=== PATIENT | female | born 2000 | race African-American/Black ===

== ENCOUNTER 2020-02-22 04:28 | Emergency (ER) | payer SELFPAY ==
--- NOTE | 2020-02-22 04:50 | ED.ABDPAIN ---
HPI - Abdominal Pain General Chief Complaint: Abdominal Pain Stated Complaint: abd pain, diarrhea Time Seen by Provider: 02/22/20 04:35 History of Present Illness HPI narrative: previously healthy 20 yo female presents c/o abdominal pain. She reports that she has had watery diarrhea for the past 3 days. Yesterday she began having upper abdominal pain. the pain is moderate in intensity. No radiation. No vomiting, fever, cough, congestion, Related Data Allergies Allergy/AdvReac Type Severity Reaction Status Date / Time No Known Allergies Allergy Verified 02/22/20 04:56 Review of Systems Review of Systems: All systems reviewed & are unremarkable except as noted in HPI and below Constitutional: Constitutional: Denies fever(s) ENT: Denies sore throat Cardiovascular: Cardiovascular: Denies chest pain Respiratory: Respiratory: Denies cough and Denies dyspnea Gastrointestinal: Gastrointestinal: Denies abdominal pain and Reports diarrhea Genitourinary: Genitourinary: Denies dysuria Course Vital Signs Vital signs: Vital Signs Temperature 37.4 C 02/22/20 04:54 Pulse Rate 127 H 02/22/20 04:54 Respiratory Rate 12 02/22/20 04:54 Blood Pressure 154/91 H 02/22/20 04:54 Pulse Oximetry 98 02/22/20 04:54 Temperature 37.4 C 02/22/20 04:54 Pulse Rate 78 02/22/20 06:14 Respiratory Rate 19 02/22/20 06:14 Blood Pressure 117/71 02/22/20 06:14 Pulse Oximetry 97 02/22/20 06:14 MDM - Abdominal Pain MDM Narrative Medical decision making narrative: Feeling better after treatment. Vitals improved. UA consistent with infection. Medical Records Attestation: I reviewed the patient's medical records. Lab Data Attestation: I reviewed the patient's lab results. Result diagrams: 02/22/20 04:44 02/22/20 04:44 Labs: Lab Results 02/22/20 02/22/20 02/22/20 Range/Units 04:44 04:44 05:16 WBC 12.6 H (4.5-10.0) K/mm3 RBC 4.61 (4.2-5.4) M/mm3 Hgb 14.2 (12.0-15.0) g/dL Hct 40.5 (37.0-47.0) % MCV 87.9 (80-100) fl MCH 30.8 (26-34) pg MCHC 35.1 (32-36) g/dl RDW 11.3 L (11.5-14.5) % Plt Count 190 (150-375) k/mm3 MPV 10.2 (7.4-10.4) fl Immature Gran % (Auto) 0.6 H (0-0.5) % Neut % (Auto) 84.0 H (45.5-73.1) % Lymph % (Auto) 6.1 L (18.3-44.2) % [place] % (Auto) 8.5 (2.6-8.5) % Eos % (Auto) 0.6 (0-4.4) % Baso % (Auto) 0.2 (0.2-1.2) % Lymph # (Auto) 0.77 L (0.9-3.2) K/mm3 [place] # (Auto) 1.1 H (0.1-0.6) K/mm3 Eos # (Auto) 0.1 (0-0.3) K/mm3 Baso # (Auto) 0.0 (0.0-0.1) K/mm3 Abs Immat Gran (auto) 0.07 H (0.00-0.031) K/mm3 Absolute Neuts (auto) 10.6 H (1.3-6.7) K/mm3 Absolute Nucleated RBC 0.0 (0.0-0.012) K/mm3 Nucleated RBC % 0.0 (0.0-0.2) % Sodium 138 (137-145) mmol/L Potassium 3.5 (3.4-5.0) mmol/L Chloride 109 H (98-107) mmol/L Carbon Dioxide 19 L (22-30) mmol/L BUN 8 (7-17) mg/dL Creatinine 0.60 L (0.7-1.0) mg/dL Estim Creat Clear Calc Not Reportable Estimated GFR > 60 (59 - ) Glucose 102 (65-105) mg/dL Calcium 9.0 (8.4-10.2) mg/dL Total Bilirubin 0.7 (0.2-1.3) mg/dL AST 25 (14-36) U/L ALT 15 (4-35) U/L Alkaline Phosphatase 76 (38-126) U/L Total Protein 7.0 (6.3-8.2) g/dL Albumin 4.2 (3.5-5.1) g/dL Lipase 68 (23-300) U/L Urine Color Yellow (Yellow) Urine Appearance Turbid H (Clear) Urine pH 5.0 (5.0-9.0) Ur Specific [place] 1.023 (1.001-1.035) Urine Protein 2+ H (Negative) mg/dL Urine Glucose (UA) Negative (Negative) mg/dL Urine Ketones Trace (Negative) mg/dL Ur Blood (Man) 1+ H (Negative) Urine Nitrate Negative (Negative) Urine Bilirubin Negative (Negative) Urine Urobilinogen Negative (<2.0) mg/dL Leukocyte Esterase Rfl 2+ H (Negative) ALEX/UL Urine RBC 21-50 H (0-2) /hpf Urine WBC >75 H /hpf Ur Squamous Ep
[2020-02-22 04:54] VITALS: BP 154/91; PULSE 127; RESP 12; TEMP 37.4; O2SAT 98
[2020-02-22 05:01] LABS: Basophils Percent Auto 0.2 % (0.2-1.2); Eosinophils Absolute Auto 0.1 K/mm3 (0-0.3); Eosinophils Percent Auto 0.6 % (0-4.4); Hematocrit 40.5 % (37.0-47.0); Hemoglobin 14.2 g/dL (12.0-15.0); Immature Granulocyte Absolute 0.07 K/mm3 (0.00-0.031); Immature Granulocyte Percent A 0.6 % (0-0.5); Lymphocytes Absolute Auto 0.77 K/mm3 (0.9-3.2); Lymphocytes Percent Auto 6.1 % (18.3-44.2); Mean Corpuscular HGB Conc 35.1 g/dl (32-36); Mean Corpuscular Hemoglobin 30.8 pg (26-34); Mean Corpuscular Volume 87.9 fl (80-100); Mean Platelet Volume 10.2 fl (7.4-10.4); Monocytes Absolute Auto 1.1 K/mm3 (0.1-0.6); Monocytes Percent Auto 8.5 % (2.6-8.5); Neutrophils Absolute Auto 10.6 K/mm3 (1.3-6.7); Platelet Count Result 190 k/mm3 (150-375); Red Blood Count 4.61 M/mm3 (4.2-5.4); Red Cell Distribution Width 11.3 % (11.5-14.5); White Blood Count 12.6 K/mm3 (4.5-10.0)
[2020-02-22 05:11] LABS: Potassium 3.5 mmol/L (3.4-5.0)
[2020-02-22 05:16] LABS: Alanine Aminotransferase 15 U/L (4-35); Albumin Level 4.2 g/dL (3.5-5.1); Alkaline Phosphatase 76 U/L (38-126); Aspartate Amino Transferase 25 U/L (14-36); Bilirubin,Total 0.7 mg/dL (0.2-1.3); Blood Urea Nitrogen 8 mg/dL (7-17); Carbon Dioxide 19 mmol/L (22-30); Chloride 109 mmol/L (98-107); Estimated Glomerular Filt Rate > 60; Glucose 102 mg/dL (65-105); Lipase 68 U/L (23-300); Sodium 138 mmol/L (137-145)
[2020-02-22] MEDS: DICYCLOMINE HCL INJ 20 MG/2 ML VIAL IM (05:17)
[2020-02-22] MEDS: SODIUM CHLORIDE 0.9% IV 1,000 ML 999 ML IV CONT (05:17)
[2020-02-22] MEDS: LOPERAMIDE HCL 2 MG CAPSULE 4 MG PO (05:17)
[2020-02-22 05:51] LABS: Add Urine Microscopic? YES; Appearance Urine Turbid (Clear); Bilirubin Urine Negative (Negative); Blood Urine 1+ (Negative); Calcium Oxalate Crystals Urine Many /hpf; Color Urine Yellow (Yellow); Glucose Urine UA Negative (Negative); Ketones Urine Trace mg/dL (Negative); Leukocyte Esterase Ur 2+ LEU/UL (Negative); Mucus Urine Moderate /lpf; Nitrate Urine Negative (Negative); Protein Urine 2+ mg/dL (Negative); RBC Urine 21-50 /hpf (0-2); Specific Grav Ur 1.023 (1.001-1.035); Squamous Epithelial Cell Urine Many /hpf (Few); Urobilinogen Urine Negative mg/dL (<2.0); WBC Urine >75 /hpf
[2020-02-22 05:56] VITALS: BP 130/81; PULSE 88; RESP 12; O2SAT 97
[2020-02-22] MEDS: CEFDINIR 300 MG CAPSULE PO (06:10)
[2020-02-22 06:14] VITALS: BP 117/71; PULSE 78; RESP 19; O2SAT 97
== END 2020-02-22 06:14 | disposition home or self-care (01) ==
PROVIDERS: Emergency Provider Emergency Medicine
DX: R10.13 Epigastric pain (principal); R19.7 Diarrhea, unspecified
CPT/HCPCS: 36415; 80053; 81001; 81025; 83690; 85025; 87086; 87088; 96360; 96372; 99283; A9270; J0500; J7030

== ENCOUNTER 2021-02-05 09:02 | Emergency (ER) | payer OTHER, SELFPAY ==
--- NOTE | ~2021-02-05 | US_ITS ---
EXAMINATION: US OB <=14 wk fetus w TV DATE: 02/05/2021 10:15 INDICATION: Vaginal bleeding. TECHNIQUE: Real-time transabdominal and transvaginal pelvic ultrasound was performed. COMPARISON: None. FINDINGS: TRANSABDOMINAL ULTRASOUND: The uterus measures 9.7 x 4.0 x 5.9 cm. TRANSVAGINAL ULTRASOUND: There is an intrauterine gestational sac. A yolk sac is identified. The fet al crown rump length measures 5 mm, which correlates with an estimated gestational age of 6 weeks and 1 day(s) (+/-) 4 day(s). heart motion is identified measuring 113 beats per minute (bpm) by M- mode Doppler. The right ovary measures 1.0 x 2.3 x 1.1 cm. The left ovary measures 1.7 x 3.2 x 2.3 cm . There is no free fluid in the pelvis. IMPRESSION: 1. Single living intrauterine gestation with estimated date of delivery of 09/30/2021. Reviewed, dictated and finalized at location [facility].
[2021-02-05 09:31] VITALS: BP 136/78; PULSE 94; RESP 18; TEMP 36.1; O2SAT 100
--- NOTE | 2021-02-05 09:32 | ED.GENADULT ---
HPI - General Adult General Chief complaint: Vaginal Bleeding <Ilir Ballard PA-C - Last Filed: 02/05/21 12:16> Stated complaint: Vaginal Bleeding <Ilir Ballard PA-C - Last Filed: 02/05/21 12:16> Time Seen by Provider: 02/05/21 09:05 <Ilir Ballard PA-C - Last Filed: 02/05/21 12:16> Source: patient <Ilir Ballard PA-C - Last Filed: 02/05/21 12:16> Mode of arrival: ambulatory <Ilir Ballard PA-C - Last Filed: 02/05/21 12:16> Limitations: no limitations <Ilir Ballard PA-C - Last Filed: 02/05/21 12:16> History of Present Illness HPI narrative: Patient is a 21-year-old female presenting with cramping and light spotting in patient is followed by Dr. Luevano. Patient had positive test on the first saw Dr. Luevano stay in the office several days later and now notes that she is having light spotting on wiping x2. Patient denies any recent illness injury or trauma. Patient notes some light cramping in the lower abdomen and lower back. Patient presents in no distress does not appear uncomfortable has not taken anything for her symptoms. Patient is an otherwise healthy young adult <Ilir Ballard PA-C - Last Filed: 02/05/21 12:16> Related Data Allergies/adverse reactions: Allergies Allergy/AdvReac Type Severity Reaction Status Date / Time No Known Allergies Allergy Verified 02/05/21 09:40 <Ilir Ballard PA-C - Last Filed: 02/05/21 12:16> Review of Systems Review of Systems: All systems reviewed & are unremarkable except as noted in HPI and below <Ilir Ballard PA-C - Last Filed: 02/05/21 12:16> PMFSH Social History Social History: Social History Gender identity (if verbalized by the patient): Female <Ilir Ballard PA-C - Last Filed: 02/05/21 12:16> Exam Narrative: Exam Narrative: GENERAL: Well-appearing, well-nourished, and in no acute distress. HEAD: Normocephalic, atraumatic. EYES: PERRLA and EOMI. ENT: Nares clear, no rhinorrhea or epistaxis. Mucous membranes moist. CHEST: Clear to auscultation. No respiratory distress. No wheezes rales or rhonchi HEART: Regular rate and rhythm. No murmur heard. Normal peripheral pulses. ABDOMEN: Soft, nontender, nondistended, EXTREMITIES: Normal range of motion. No edema. SKIN: Warm, dry, no rash. NEURO: No focal deficits. Alert and oriented x3. PSYCH: Normal mood and affect. <XAVI Watkins Last Filed: 02/05/21 12:16> Course Course Emergency Course: Patient with vaginal bleeding in will be discharged with outpatient follow-up aware of discussion with her acidizer agrees with this plan is afebrile nontoxic-appearing in no distress was given RhoGam prior to discharge will follow up March 03 as planned has been placed on pelvic rest educated on this and agrees with the plan and will return here if symptoms worsen and will otherwise follow with her acidizer <XAVI Watkins Last Filed: 02/05/21 12:16> Consultations Consultation #1: Spoke with the on-call acidizer Dr. Lopez who agrees with the plan and will follow the patient with plan follow-up to be placed on pelvic rest as well <XAVI Watkins Last Filed: 02/05/21 12:16> Date: 02/05/21 <XAVI Watkins Last Filed: 02/05/21 12:16> Time: 12:13 <XAVI Watkins Last Filed: 02/05/21 12:16> Vital Signs Vital signs: Vital Signs Temperature 36.1 C L 02/05/21 09:31 Pulse Rate 94 02/05/21 09:31 Respiratory Rate 18 02/05/21 09:31 Blood Pressure 136/78 02/05/21 09:31 Pulse Oximetry 100 02/05/21 09:31 Temperature 36.1 C L 02/05/21 09:31 Pulse Rate 70 02/05/21 12:29 Respiratory Rate 18 02/05/21 12:29 Blood Pressure 122/80 02/05/21 12:29 Pulse Oximetry 100 02/05/21 12:29 <Ilir Ballard PA-C - Last Filed: 02/05/21 12:16> Vital
[2021-02-05] MEDS: SODIUM CHLORIDE 0.9% IV 1,000 ML 999 ML IV CONT (09:48)
--- NOTE | 2021-02-05 09:56 | PC.NURSE ---
Pt taken to US via wheelchair at this time.
[2021-02-05 10:07] LABS: Add Urine Microscopic? YES; Appearance Urine Clear (Clear); Bacteria Urine Trace /hpf; Bilirubin Urine Negative (Negative); Blood Urine 2+ (Negative); Color Urine Yellow (Yellow); Glucose Urine UA Negative (Negative); Ketones Urine Negative (Negative); Leukocyte Esterase Ur Trace LEU/UL (Negative); Mucus Urine Rare /lpf; Nitrate Urine Negative (Negative); Protein Urine Negative (Negative); RBC Urine 0-2 /hpf (0-2); Specific Grav Ur 1.012 (1.001-1.035); Squamous Epithelial Cell Urine Few /hpf (Few); Urobilinogen Urine Negative mg/dL (<2.0)
[2021-02-05 10:08] LABS: Alanine Aminotransferase 14 U/L (4-35); Albumin Level 4.1 g/dL (3.5-5.1); Alkaline Phosphatase 62 U/L (38-126); Anion Gap 4 mmol/L (8-16); Aspartate Amino Transferase 19 U/L (14-36); Blood Urea Nitrogen 8 mg/dL (7-17); Carbon Dioxide 22 mmol/L (22-30); Chloride 109 mmol/L (98-107); Estimated CRCL calculation 122 ml/min; Estimated Glomerular Filt Rate > 60; Glucose 86 mg/dL (65-105); Potassium 3.9 mmol/L (3.4-5.0); Sodium 135 mmol/L (137-145)
[2021-02-05 11:00] LABS: Bilirubin,Total 1.2 mg/dL (0.2-1.3)
[2021-02-05 11:10] VITALS: BP 114/64; PULSE 69; RESP 16; O2SAT 100
[2021-02-05] MEDS: RHO(D) IMMUNE GLOBULIN 300 MCG/2 ML SYRINGE IM (11:49)
[2021-02-05 12:29] VITALS: BP 122/80; PULSE 70; RESP 18; O2SAT 100
== END 2021-02-05 12:31 | disposition home or self-care (01) ==
PROVIDERS: Emergency Medicine Emergency Medical Services; Emergency Provider Emergency Medicine; PCP Family Medicine
DX: O20.9 Hemorrhage in early pregnancy, unspecified (principal); Z3A.01 Less than 8 weeks gestation of pregnancy
CPT/HCPCS: 36415; 76801; 76817; 80053; 81001; 84702; 85461; 87077; 87086; 87088; 87186; 90384; 96360; 96372; 99284; J2790; J7030

== ENCOUNTER 2021-02-16 03:34 | Emergency (ER) | payer OTHER, SELFPAY ==
[2021-02-16 03:37] VITALS: BP 134/73; PULSE 73; RESP 18; TEMP 35.9; O2SAT 100
--- NOTE | 2021-02-16 03:44 | ED.FEMALEGU ---
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 She awoke from sleep with her underwear soaked in blood. The bleeding has significantly slowed at this point. She is rh negative. She was seen here for similar symptoms 11 days ago. She had an ultrasound showing a normal IUP. She was given rhogam. She is a patient of Dr. Luevano. Related Data Home Medications Medication Instructions Recorded Confirmed Macrobid 02/16/21 sertraline [Zoloft] mg 02/16/21 Allergies Allergy/AdvReac Type Severity Reaction Status Date / Time No Known Allergies Allergy Verified 02/16/21 03:39 Review of Systems Review of Systems: All systems reviewed & are unremarkable except as noted in HPI and below Constitutional: Constitutional: Reports no additional constitutional complaints ENT: Reports system reviewed and no additional complaints, except as documented Cardiovascular: Cardiovascular: Denies chest pain Respiratory: Respiratory: Denies no additional respiratory complaints Gastrointestinal: Gastrointestinal: Denies nausea and Denies vomiting Genitourinary: Genitourinary: Reports as per HPI Musculoskeletal: Musculoskeletal: Denies back pain Neurologic: Reports system reviewed and no additional complaints, except as documented [facility] Social History Social History Gender identity (if verbalized by the patient): Female Sexual Orientation (if Verbalized by the Patient): Straight or Heterosexual Exam Const: General: healthy appearing, no acute distress and alert Orientation/consciousness: patient oriented x3 HENMT: Head: normal to inspection Resp: Effort & Inspection: normal respiratory effort Auscultation: clear to auscultation bilaterally Cardio: Rate: regular rate Rhythm: regular rhythm GI: GI Palp: Yes Soft to palpation and No Tenderness to palpation present (GI) Skin: General skin exam: normal color Neuro: General: patient oriented x3, moves all extremities, no focal motor deficits and CN's II-XI intact bilaterally Speech: normal speech Extrem: General: normal to inspection and no edema Course Vital Signs Vital signs: Vital Signs Temperature 35.9 C L 02/16/21 03:37 Pulse Rate 73 02/16/21 03:37 Respiratory Rate 18 02/16/21 03:37 Blood Pressure 134/73 02/16/21 03:37 Pulse Oximetry 100 02/16/21 03:37 Temperature 35.9 C L 02/16/21 03:37 Pulse Rate 73 02/16/21 03:37 Respiratory Rate 18 02/16/21 03:37 Blood Pressure 134/73 02/16/21 03:37 Pulse Oximetry 100 02/16/21 03:37 Procedures Other Procedure Procedure 1: Other Procedure: Bedside US Early IUP FHR 146 MDM - Female Genitourinary MDM Narrative Medical decision making narrative: Patient discussed with Dr. Estrella. She can followup with them in clinic this week. No need to repeat rhogam. Differential Diagnosis Differential diagnosis: Likely other (subchoioinc hemorrhage, aborton, ) Medical Records Attestation: I reviewed the patient's medical records. Discharge Plan Discharge Clinical Impression: Vaginal bleeding affecting early Patient Disposition: Home, Self-Care Condition: Stable Instructions: Non-Threatening First Trimester Vaginal Bleed (ED) Prescriptions: No Action dicyclomine 20 mg tablet 20 mg PO TID PRN (Reason: AbdominalPain) Qty: 20 RF: 0 cefdinir 300 mg capsule 300 mg PO Q12H Qty: 14 RF: 0 sertraline [Zoloft] 25 mg Tablet RF: 0 Macrobid RF: 0 Follow-up/Referrals: Alison Luevano DO [Physician] - Ryan,Melodie Garcia MD [Primary Care Provider] -
[2021-02-16 05:05] VITALS: BP 105/61; PULSE 60; RESP 18; O2SAT 100
== END 2021-02-16 05:05 | disposition home or self-care (01) ==
PROVIDERS: Emergency Provider Emergency Medicine; PCP Family Medicine
DX: O20.9 Hemorrhage in early pregnancy, unspecified (principal); Z3A.01 Less than 8 weeks gestation of pregnancy
CPT/HCPCS: 99282

== ENCOUNTER 2021-02-16 13:39 | Emergency (ER) | payer OTHER, SELFPAY ==
--- NOTE | 2021-02-16 13:45 | PC.NURSE ---
pt states was contacted by operations examiner and states no ed visit needed. states has outpatient ultrasound scheduled. left before triaged.
== END 2021-02-16 13:45 | disposition left against medical advice (07) ==
PROVIDERS: PCP Family Medicine
DX: Z53.21 Procedure and treatment not carried out due to patient leaving prior to being seen by health care provider (principal)
CPT/HCPCS: 99199

== ENCOUNTER 2021-03-09 08:18 | Emergency (ER) | payer OTHER, SELFPAY ==
--- NOTE | 2021-03-09 08:29 | ED.URI ---
HPI - URI/Sore Throat General Chief Complaint: Upper Respiratory Infection Stated Complaint: sore throat Time Seen by Provider: 03/09/21 08:40 Source: patient and RN notes reviewed Mode of arrival: ambulatory Limitations: no limitations History of Present Illness HPI Narrative: 21-year-old female presents for sinus congestion and a sore throat since last night. Patient is approximately 10 weeks , OB in [place]. 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 States she always has nausea since she has been . Has not been vomiting. Is taking her vitamins daily. Denies any chest pain or abdominal pain. Denies fevers. MD elicited complaint: sore throat, rhinorrhea, nasal congestion and sinus pain Onset (ago): hour(s) (About 12) Consistency: constant Severity: mild Description of mucous: clear Treatments prior to arrival: none Related Data Home Medications Medication Instructions Recorded Confirmed sertraline 25 mg PO DAILY 03/09/21 03/09/21 Allergies Allergy/AdvReac Type Severity Reaction Status Date / Time No Known Allergies Allergy Verified 02/16/21 03:39 Review of Systems Review of Systems: All systems reviewed & are unremarkable except as noted in HPI and below Constitutional: Constitutional: Reports as per HPI, Denies chills, Denies fatigue, Denies fever(s) and Denies weakness Eyes: Eyes: Reports no additional eye complaints and Denies photophobia ENT: Reports as per HPI, Denies vertigo, Denies dizziness, Reports nasal congestion and Reports sore throat Cardiovascular: Cardiovascular: Reports no additional cardiovascular complaints and Denies chest pain Respiratory: Respiratory: Reports no additional respiratory complaints, Denies chest congestion, Denies cough, Denies dyspnea and Denies wheezing Gastrointestinal: Gastrointestinal: Reports as per HPI, Denies abdominal pain, Reports nausea ( related) and Denies vomiting Genitourinary: Genitourinary: Reports no additional female genitourinary complaints Musculoskeletal: Musculoskeletal: Reports no additional musculoskeletal complaints Integumentary/Breasts: Skin/Breast: Reports system reviewed and no additional complaints, except as docu Neurologic: Reports system reviewed and no additional complaints, except as documented, Denies dizziness, Denies headache(s) and Denies numbness Psychiatric: Psychiatric: Reports no additional psychiatric complaints PMFSH Social History Social History Gender identity (if verbalized by the patient): Female Comments At the time of my signature, I reviewed and agree with the nursing past medical, surgical, social, and family history. There is no relevant family history pertinent to the patient complaint. Exam Const: General: healthy appearing, no acute distress and alert Nutritional Appearance: well nourished Orientation/consciousness: patient oriented x3 HENMT: Head: normal to inspection Ears: external ears normal and TM's normal bilaterally General nose exam: Normal external nose present, Normal nares present and Nasal discharge present clear Face and sinus: sinuses nontender Mouth: Yes lip normal and Yes moist mucous membranes Throat: posterior oropharynx normal and uvula midline Eyes: Conjunctivae: conjunctivae normal Pupils: Equal, round and reactive pupils present Neck: Neck: normal visual inspection and no lymphadenopathy Chest: Chest palpation & inspection: normal inspection of the chest Resp: Effort & Inspection: normal respiratory effort and no use of accessory muscles Auscultation: clear to auscultation bilaterally, no crackles, no rales, no rhonchi and no wheezes Skin: General skin exam: normal color Neuro: General: patient oriented x3, moves all extremities, no meningeal signs and no focal motor deficits Speech: normal speech Gait exam (Neuro): Normal gait present Extrem: General: normal to inspection Psych: Appearance: grossly normal Men
[2021-03-09 08:38] VITALS: BP 127/71; PULSE 108; RESP 17; TEMP 36.4; O2SAT 98
[2021-03-09 08:40] VITALS: BP 127/71; PULSE 108; RESP 17; TEMP 36.4; O2SAT 98
[2021-03-10 18:55] LABS: SARS-CoV-2 RNA PCR Negative
== END 2021-03-09 09:20 | disposition home or self-care (01) ==
PROVIDERS: Emergency Provider Nurse Practitioner; PCP Family Medicine
DX: J01.40 Acute pansinusitis, unspecified (principal); Z20.822 Contact with and (suspected) exposure to COVID-19
CPT/HCPCS: 87081; 87880; 99213; C9803; G0463; U0003; U0005

== ENCOUNTER 2021-03-16 08:30 | Emergency (ER) | payer OTHER, SELFPAY ==
--- NOTE | ~2021-03-16 | US_ITS ---
US OB <=14 wk fetus w TV DATE: 03/16/2021 09:38 INDICATION: Vaginal bleeding, gravid patient TECHNIQUE: Real-time imaging and Doppler analysis COMPARISON: 02/05/2021 obstetrical ultrasound FINDINGS: The uterus measures 10.2 cm height, 6.4 cm AP dimension and contains a live ambrosio intra uterine gestation. Gestational sac is normally shaped. Yolk sac and pole are identified. Subjec tively normal amount of amniotic fluid. heart rate 155 bpm. [place]-rump length averages 5.62 cm, consistent with estimated gestational age of 12 weeks 2 days +/- 1 week 1 day with ALANA of 09/26/2021, compared to 09/30/2021 by 02/05/2021 obstetrical ultrasound examina tion. Right ovary measures 1.4 x 2.4 x 1.2 cm. Left ovary measures 3.2 x 3.1 x 1.0 cm. No pelvic mass or abnormal free pelvic fluid collection is evident. IMPRESSION: Normal appearing intrauterine gestation Reviewed, dictated and finalized at [facility]. Reviewed, dictated and finalized at location [facility].
[2021-03-16 08:38] VITALS: BP 130/76; PULSE 75; RESP 20; TEMP 36.9; O2SAT 97
[2021-03-16 08:52] LABS: Basophils Percent Auto 0.2 % (0.2-1.2); Eosinophils Absolute Auto 0.1 K/mm3 (0-0.3); Eosinophils Percent Auto 1.2 % (0-4.4); Hematocrit 36.7 % (37.0-47.0); Immature Granulocyte Absolute 0.07 K/mm3 (0.00-0.031); Immature Granulocyte Percent A 0.6 % (0-0.5); Lymphocytes Absolute Auto 2.74 K/mm3 (0.9-3.2); Mean Corpuscular HGB Conc 35.4 g/dl (32-36); Mean Corpuscular Volume 87.6 fl (80-100); Mean Platelet Volume 9.9 fl (7.4-10.4); Monocytes Absolute Auto 0.6 K/mm3 (0.1-0.6); Monocytes Percent Auto 5.4 % (2.6-8.5); Neutrophils Absolute Auto 8.3 K/mm3 (1.3-6.7); Neutrophils Percent Auto 69.6 % (45.5-73.1); Platelet Count Result 219 k/mm3 (150-375); Red Blood Count 4.19 M/mm3 (4.2-5.4); Red Cell Distribution Width 12.1 % (11.5-14.5); White Blood Count 11.9 K/mm3 (4.5-10.0)
[2021-03-16] MEDS: ACETAMINOPHEN 500 MG TABLET 1000 MG PO (09:43)
--- NOTE | 2021-03-16 10:56 | ED.GENADULT ---
HPI - General Adult General Chief complaint: Vaginal Bleeding Stated complaint: 11 weeks preg/bleeding Time Seen by Provider: 03/16/21 08:37 Source: RN notes reviewed History of Present Illness HPI narrative: Patient presents emergency department from home for vaginal bleeding. Patient states she is presently [address] khan. She states she has had some vaginal spotting this morning and came to the ER for further evaluation. She states she has mild lower abdominal cramping that is intermittent. She states she is taken nothing for the pain this morning states that she has had several episodes of vaginal bleeding with her has had worked up she denies any other symptoms at this time Related Data Home Medications Medication Instructions Recorded Confirmed [id number] 3-fat com #1 cap PO 03/16/21 [Pre-Viky Multivitamins/Minerals] cetirizine [Zyrtec] 10 mg PO DAILY 03/16/21 sertraline [Zoloft] 25 mg PO DAILY 03/16/21 Allergies Allergy/AdvReac Type Severity Reaction Status Date / Time No Known Allergies Allergy Verified 03/16/21 08:41 Review of Systems Review of Systems: Narrative: Gen.: Denies fevers or chills ENT: Denies congestion Respiratory: Denies shortness of breath or cough CV: Denies chest pain or palpitations GI: Reports intermittent lower abdominal cramping nausea, emesis or diarrhea see HPI Musculoskeletal: Denies back pain or muscle pain Neuro: Denies numbness, tingling, weakness or focal weakness Skin: Denies rash Except as documented, all other systems reviewed and negative [facility] Past Medical History Medical History (Updated 03/16/21 @ 10:58 by Vinnie Felipe DO) Patient denies significant medical history Social History Social History (Updated 03/16/21 @ 10:57 by Vinnie Felipe DO) Smoking status: Never smoker Exam Narrative: Exam Narrative: APPEARANCE: No acute distress, nontoxic, resting in bed EYES: EOMI HEENT: Normocephalic, atraumatic, OMM RESPIRATORY: No respiratory distress Clear to auscultation bilaterally with no rhonchi wheezing or rales. CARDIOVASCULAR: Regular rate and rhythm without murmurs rubs or gallops. ABDOMINAL: Soft, nontender, nondistended, no rebound or guarding MUSCULOSKELETAl: Moves all extremities. No clubbing, cyanosis or edema. NEURO: Awake and alert. Following commands, speech normal, no focal deficits SKIN:: Warm, dry. No rashes lesions or abrasions PSYCHIATRIC: Normal affect/mood, Course Course Emergency Course: Reviewed old records the patient is registered and other medical record number and has been seen here for vaginal bleeding in the past 2 months patient had RhoGam on 02/05/[address] Sierra presentation work-up agrees with plan for discharge to follow-up as an outpatient recommends no RhoGam at this time she has had previous RhoGam in January Discussed with patient results of workup and diagnosis. Discussed need for follow-up with primary care, proper use of medication, and reasons to return to the emergency department. Patient understands and agrees to current treatment plan Vital Signs Vital signs: Vital Signs Temperature 98.4 F 03/16/21 08:38 Pulse Rate 75 03/16/21 08:38 Respiratory Rate 20 03/16/21 08:38 Blood Pressure 130/76 03/16/21 08:38 Pulse Oximetry 97 03/16/21 08:38 Temperature 98.4 F 03/16/21 08:38 Pulse Rate 75 03/16/21 08:38 Respiratory Rate 20 03/16/21 08:38 Blood Pressure 130/76 03/16/21 08:38 Pulse Oximetry 97 03/16/21 08:38 Medical Decision Making Vital Signs Vital Signs: Vital Signs Temperature 98.4 F 03/16/21 08:38 Pulse Rate 75 03/16/21 08:38 Respiratory Rate 20 03/16/21 08:38 Blood Pressure 130/76 03/16/21 08:38 Pulse Oximetry 97 03/16/21 08:38 Temperature 98.4 F 03/16/21 08:38 Pulse Rate 75 03/16/21 08:38 Respiratory Rate 20 03/16/21 08:38 Blood Pressure 130/76 03/16/21 08:38 Pulse Oxi
[2021-03-16 11:13] VITALS: BP 153/80; PULSE 87; RESP 20; O2SAT 98
== END 2021-03-16 11:14 | disposition home or self-care (01) ==
PROVIDERS: Emergency Provider Emergency Medicine; PCP Family Medicine
DX: O20.0 Threatened abortion (principal)
CPT/HCPCS: 36415; 76801; 76817; 84702; 85025; 85461; 86880; 86902; 99284; A9270

== ENCOUNTER 2021-03-17 19:41 | Emergency (ER) | payer OTHER, SELFPAY ==
[2021-03-17 19:51] VITALS: BP 122/72; PULSE 86; RESP 18; TEMP 36.1; O2SAT 98
[2021-03-17 20:40] VITALS: BP 126/78; PULSE 68; RESP 16; TEMP 36.6; O2SAT 100
--- NOTE | 2021-03-17 20:58 | ED.FEMALEGU ---
HPI - Female Genitourinary General Chief complaint: Vaginal Bleeding Stated complaint: vaginal bleed 11 weeks preg. Time Seen by Provider: 03/17/21 20:34 Source: patient Mode of arrival: ambulatory Limitations: no limitations History of Present Illness HPI Narrative: Patient is a 21 year old female who presents with complaints of vaginal bleeding. Patient reports she is 11 weeks 6 days gestation. She reports being seem in ED yesterday for vaginal bleeding. She reports ultrasound completed and showed IUP. She reports being advised to stay on bedrest for the next few days. She reports she has been compliant. She reports up to restroom and while urinating had a large amount of bright red vaginal bleeding and cramping after urination. She denies all other complaints at this time. MD elicited complaint: vaginal bleeding Related Data Home Medications Medication Instructions Recorded Confirmed sertraline 25 mg PO DAILY 03/09/21 03/09/21 Allergies Allergy/AdvReac Type Severity Reaction Status Date / Time No Known Allergies Allergy Verified 03/17/21 20:44 Review of Systems Review of Systems: Narrative: CONSTITUTIONAL: Denies fever, chills, or sweats. EYES: Denies visual changes, redness, or discharge. ENT: Denies rhinorrhea, congestion, sore throat, or otalgia. CARDIOVASCULAR: Denies chest pain, palpitations, or edema. RESPIRATORY: Denies cough or dyspnea. GASTROINTESTINAL: Denies abdominal pain, nausea, vomiting, or diarrhea. GENITOURINARY: Reports vaginal bleeding and pelvic cramping SKIN: Denies rash or itching. MUSCULOSKELETAL: Denies back pain, joint pain, or myalgia. NEUROLOGIC: Denies headache, numbness, dizziness, or weakness. PSYCHIATRIC: Denies anxiety or depression. [facility] Past Medical History Medical History No pertinent past medical history Surgical History Surgical History No pertinent past surgical history Family History Family History Other No significant family history Social History Social History (Updated 03/17/21 @ 21:18 by ROBY Jones) Smoking status: Never smoker Alcohol intake: never Substance use: never Gender identity (if verbalized by the patient): Female Comments At the time of signature, I have reviewed and agree with nursing past medical, surgical, social, and family history unless otherwise noted. Please see nursing chart for further information. There is no relevant family history pertinent to the presenting complaint. Exam Narrative: Exam Narrative: GENERAL: Well-appearing, well-nourished, and in no acute distress. HEAD: Normocephalic, atraumatic. EYES: EOMI. No redness or drainage. Conjunctiva are normal. ENT: Mucous membranes pink and moist. Nares clear. No rhinorrhea. TMs normal bilaterally. Throat normal. Uvula midline. NECK: AROM. Supple. No lymphadenopathy. CHEST: No respiratory distress. Clear to auscultation. HEART: Regular rate and rhythm. No murmur appreciated. Normal peripheral pulses. GI: Soft, nontender without rebound, or guarding. No distention. Bowel sounds normal in all quadrants. MUSCULOSKELETAL: No bony tenderness. EXTREMITIES: Normal range of motion. No edema. SKIN: Warm, dry, no rash. NEURO: No focal deficits. Alert and oriented x3. Gait steady. PSYCH: Normal affect. No signs of depression or anxiety. Course Vital Signs Vital signs: Vital Signs Temperature 36.1 C L 03/17/21 19:51 Pulse Rate 86 03/17/21 19:51 Respiratory Rate 18 03/17/21 19:51 Blood Pressure 122/72 03/17/21 19:51 Pulse Oximetry 98 03/17/21 19:51 Temperature 36.6 C 03/17/21 20:40 Pulse Rate 68 03/17/21 20:40 Respiratory Rate 16 03/17/21 20:40 Blood Pressure 126/78 03/17/21 20:40 Pulse Oximetry 100 03/17/21 20:40 Reviewed MDM - Female Genitourinar
[2021-03-17 21:56] LABS: Basophils Percent Auto 0.1 % (0.2-1.2); Eosinophils Absolute Auto 0.2 K/mm3 (0-0.3); Hematocrit 36.8 % (37.0-47.0); Hemoglobin 12.9 g/dL (12.0-15.0); Immature Granulocyte Percent A 0.6 % (0-0.5); Lymphocytes Absolute Auto 3.52 K/mm3 (0.9-3.2); Lymphocytes Percent Auto 22.8 % (18.3-44.2); Mean Corpuscular HGB Conc 35.1 g/dl (32-36); Mean Corpuscular Hemoglobin 31.5 pg (26-34); Mean Corpuscular Volume 89.8 fl (80-100); Mean Platelet Volume 10.3 fl (7.4-10.4); Monocytes Absolute Auto 1.1 K/mm3 (0.1-0.6); Monocytes Percent Auto 7.1 % (2.6-8.5); Neutrophils Absolute Auto 10.5 K/mm3 (1.3-6.7); Neutrophils Percent Auto 68.4 % (45.5-73.1); Platelet Count Result 228 k/mm3 (150-375); Red Cell Distribution Width 12.3 % (11.5-14.5); White Blood Count 15.4 K/mm3 (4.5-10.0)
--- NOTE | 2021-03-17 22:12 | PC.NURSE ---
FHT attempted x2. Called OB, they are going to attempt to find FHT. [employer] notified.
[2021-03-17 22:50] VITALS: BP 126/72; PULSE 78; RESP 18; O2SAT 100
== END 2021-03-17 22:52 | disposition home or self-care (01) ==
PROVIDERS: Emergency Provider Nurse Practitioner; PCP Family Medicine
DX: O20.0 Threatened abortion (principal); Z3A.11 11 weeks gestation of pregnancy
CPT/HCPCS: 36415; 84702; 85025; 99284

== ENCOUNTER 2021-04-15 16:19 | Emergency (ER) | payer OTHER, SELFPAY ==
[2021-04-15 16:23] VITALS: BP 135/82; PULSE 98; RESP 15; TEMP 36.6; O2SAT 97
[2021-04-15 16:43] LABS: Basophils Percent Auto 0.1 % (0.2-1.2); Eosinophils Absolute Auto 0.1 K/mm3 (0-0.3); Eosinophils Percent Auto 0.6 % (0-4.4); Hemoglobin 12.3 g/dL (12.0-15.0); Immature Granulocyte Absolute 0.11 K/mm3 (0.00-0.031); Immature Granulocyte Percent A 0.7 % (0-0.5); Lymphocytes Absolute Auto 2.38 K/mm3 (0.9-3.2); Lymphocytes Percent Auto 16.1 % (18.3-44.2); Mean Corpuscular HGB Conc 35.1 g/dl (32-36); Mean Corpuscular Hemoglobin 31.3 pg (26-34); Mean Corpuscular Volume 89.1 fl (80-100); Mean Platelet Volume 10.1 fl (7.4-10.4); Monocytes Absolute Auto 0.9 K/mm3 (0.1-0.6); Monocytes Percent Auto 6.4 % (2.6-8.5); Neutrophils Absolute Auto 11.3 K/mm3 (1.3-6.7); Neutrophils Percent Auto 76.1 % (45.5-73.1); Platelet Count Result 227 k/mm3 (150-375); Red Blood Count 3.93 M/mm3 (4.2-5.4); Red Cell Distribution Width 12.1 % (11.5-14.5); White Blood Count 14.8 K/mm3 (4.5-10.0)
[2021-04-15 16:52] LABS: Alanine Aminotransferase 15 U/L (4-35); Albumin Level 3.7 g/dL (3.5-5.1); Alkaline Phosphatase 63 U/L (38-126); Anion Gap 7 mmol/L (8-16); Aspartate Amino Transferase 20 U/L (14-36); Bilirubin,Total 0.3 mg/dL (0.2-1.3); Blood Urea Nitrogen 8 mg/dL (7-17); Calcium 9.8 mg/dL (8.4-10.2); Carbon Dioxide 20 mmol/L (22-30); Chloride 108 mmol/L (98-107); Estimated CRCL calculation 141 ml/min; Estimated Glomerular Filt Rate > 60; Glucose 107 mg/dL (65-105); Lipase 72 U/L (23-300); Potassium 3.5 mmol/L (3.4-5.0); Sodium 135 mmol/L (137-145)
[2021-04-15 17:58] LABS: Add Urine Microscopic? YES; Appearance Urine Cloudy (Clear); Bacteria Urine Trace /hpf; Bilirubin Urine Negative (Negative); Blood Urine Negative (Negative); Color Urine Yellow (Yellow); Glucose Urine UA Negative (Negative); Ketones Urine Negative (Negative); Leukocyte Esterase Ur Negative LEU/UL (Negative); Mucus Urine Rare /lpf; Nitrate Urine Negative (Negative); Protein Urine 1+ mg/dL (Negative); RBC Urine 0-2 /hpf (0-2); Squamous Epithelial Cell Urine Many /hpf (Few); Urobilinogen Urine Negative mg/dL (<2.0)
[2021-04-15] MEDS: SODIUM CHLORIDE 0.9% IV 1,000 ML 999 ML IV CONT (18:08)
[2021-04-15] MEDS: METOCLOPRAMIDE HCL INJ 10 MG/2 ML VIAL 5 MG IV PUSH (18:08)
[2021-04-15 18:15] LABS: Specific Grav Ur 1.031 (1.001-1.035)
[2021-04-15 19:18] VITALS: BP 113/63; PULSE 62; RESP 16; O2SAT 100
--- NOTE | 2021-04-15 19:38 | ED.GENADULT ---
HPI - General Adult General Chief complaint: Nausea/Vomiting/Diarrhea Stated complaint: Vomiting, 16 Weeks Time Seen by Provider: 04/15/21 17:44 Source: patient Mode of arrival: ambulatory Limitations: no limitations History of Present Illness HPI narrative: 21-year-old 1 para 0 about 16 weeks of gestation here with complaints of nausea and vomiting started this afternoon after she ate lunch. Patient states that she threw up several times. She denied any diarrhea. Had some lower abdominal pain however it has now resolved. She denies any vaginal bleeding or discharge. Onset (ago): hour(s) (5) Severity: moderate Relieving factors: none Exacerbating factors: none Associated symptoms: denies other symptoms Related Data Home Medications Medication Instructions Recorded Confirmed sertraline 25 mg PO DAILY 03/09/21 03/09/21 SUS-miwr-KM-omega 3-fat com #1 cap PO 03/16/21 [Pre-Viky Multivitamins/Minerals] cetirizine [Zyrtec] 10 mg PO DAILY 03/16/21 sertraline [Zoloft] 25 mg PO DAILY 03/16/21 Allergies Allergy/AdvReac Type Severity Reaction Status Date / Time No Known Allergies Allergy Verified 04/15/21 18:10 Review of Systems Eyes: Eyes: Reports no additional eye complaints ENT: Reports system reviewed and no additional complaints, except as documented Cardiovascular: Cardiovascular: Reports no additional cardiovascular complaints Respiratory: Respiratory: Reports no additional respiratory complaints Gastrointestinal: Gastrointestinal: Reports as per HPI Genitourinary: Genitourinary: Reports no additional female genitourinary complaints Musculoskeletal: Musculoskeletal: Reports no additional musculoskeletal complaints PMFSH Past Medical History Medical History No pertinent past medical history Patient denies significant medical history Surgical History Surgical History No pertinent past surgical history Family History Family History Other No significant family history Social History Social History Smoking status: Never smoker Alcohol intake: never Substance use: never Gender identity (if verbalized by the patient): Female Exam Narrative: Exam Narrative: GENERAL: Well-appearing, well-nourished, and in no acute distress. HEAD: Normocephalic, atraumatic. EYES: PERRLA and EOMI. NECK: Supple. CHEST: Clear to auscultation. No respiratory distress. HEART: Regular rate and rhythm. No murmur heard. Normal peripheral pulses. ABDOMEN: Soft, nontender, nondistended, normal active bowel sounds. EXTREMITIES: Normal range of motion. No edema. SKIN: Warm, dry, no rash. NEURO: No focal deficits. Alert and oriented x3. PSYCH: Normal mood and affect. Course Course Emergency Course: Patient started feeling much better after she got IV fluids and Reglan. Discussed labs with the patient. She is now states that she is hungry wants to eat. Advised her to take Reglan as needed for nausea Vital Signs Vital signs: Vital Signs Temperature 36.6 C 04/15/21 16:23 Pulse Rate 98 04/15/21 16:23 Respiratory Rate 15 04/15/21 16:23 Blood Pressure 135/82 04/15/21 16:23 Pulse Oximetry 97 04/15/21 16:23 Temperature 36.6 C 04/15/21 16:23 Pulse Rate 62 04/15/21 19:18 Respiratory Rate 16 04/15/21 19:18 Blood Pressure 113/63 04/15/21 19:18 Pulse Oximetry 100 04/15/21 19:18 Medical Decision Making Vital Signs Vital Signs: Vital Signs Temperature 36.6 C 04/15/21 16:23 Pulse Rate 98 04/15/21 16:23 Respiratory Rate 15 04/15/21 16:23 Blood Pressure 135/82 04/15/21 16:23 Pulse Oximetry 97 04/15/21 16:23 Temperature 36.6 C 04/15/21 16:23 Pulse Rate 62 04/15/21 19:18 Respiratory Rate 16 04/15/21 19:18 Blood Pressure
== END 2021-04-15 20:12 | disposition home or self-care (01) ==
PROVIDERS: Emergency Medicine; Emergency Provider Family Medicine; PCP Family Medicine
DX: O21.9 Vomiting of pregnancy, unspecified (principal); Z3A.16 16 weeks gestation of pregnancy
CPT/HCPCS: 36415; 80053; 81001; 83690; 85025; 96361; 96374; 99284; J2765; J7030

== ENCOUNTER 2021-06-03 22:35 | Observation (INO) | payer OTHER, SELFPAY ==
--- NOTE | 2021-06-03 22:35 | OBADM ---
This patient, Gladis Martel, admitted to the OB room OB Post 116 for observation. Patient/family oriented to hospital policies and general routines including ID bracelet, bed and alarms, visiting hours, pain management, procedures, bathroom and other care routines, personal items, smoking policy, room service/diet, and visiting hours. Patient/Family are encouraged to report perceived risks to care and to ask questions if they do not understand what they are told or what they should do.
[2021-06-03 22:55] VITALS: BP 128/68; PULSE 78
[2021-06-03 23:07] VITALS: BMI 29.9
[2021-06-03 23:12] VITALS: RESP 18; TEMP 36.9
[2021-06-03 23:40] LABS: Add Urine Microscopic? NO; Appearance Urine Clear (Clear); Bilirubin Urine Negative (Negative); Blood Urine Negative (Negative); Color Urine Straw (Yellow); Glucose Urine UA Negative (Negative); Ketones Urine Negative (Negative); Leukocyte Esterase Ur Negative LEU/UL (Negative); Nitrate Urine Negative (Negative); Protein Urine Negative (Negative); Specific Grav Ur 1.009 (1.001-1.035); Urobilinogen Urine Negative mg/dL (<2.0)
[2021-06-03 23:50] VITALS: RESP 18
--- NOTE | 2021-06-11 11:33 | P.PNOB_ITS ---
OB - Triage/Final Diagnosis Visit Information Comments/Additional reasons for admission: I have assessed the risk for this patient, Gladis Martel, and determined that she would benefit from observation care. Evaluation Laboratory results: Laboratory Tests 06/03/21 23:29 Urine Color Straw Urine Appearance Clear Urine pH 6.0 Ur Specific [place] 1.009 Urine Protein Negative Urine Glucose (UA) Negative Urine Ketones Negative Ur Blood (Man) Negative Urine Nitrate Negative Urine Bilirubin Negative Urine Urobilinogen Negative Leukocyte Esterase Rfl Negative Final Diagnosis (1) Abdominal pain affecting : Code(s): O26.899 - Other specified related conditions, unspecified trimester; R10.9 - Unspecified abdominal pain Status: Acute
== END 2021-06-04 00:13 | disposition home or self-care (01) ==
PROVIDERS: Admitting Provider Obstetrics & Gynecology; PCP Family Medicine; Visit Provider Obstetrics & Gynecology
DX: O26.899 Other specified pregnancy related conditions, unspecified trimester (principal); R10.9 Unspecified abdominal pain; Z3A.00 Weeks of gestation of pregnancy not specified
CPT/HCPCS: 81003; G0378; G0379

== ENCOUNTER 2021-06-07 15:59 | Observation (INO) | payer OTHER, SELFPAY ==
[2021-06-07 16:58] VITALS: TEMP 37.1
[2021-06-07 17:01] LABS: Add Urine Microscopic? YES; Appearance Urine Clear (Clear); Bacteria Urine Trace /hpf; Bilirubin Urine Negative (Negative); Blood Urine Negative (Negative); Color Urine Yellow (Yellow); Glucose Urine UA Negative (Negative); Ketones Urine Negative (Negative); Leukocyte Esterase Ur Negative LEU/UL (Negative); Mucus Urine Rare /lpf; Nitrate Urine Negative (Negative); Protein Urine Negative (Negative); RBC Urine 0-2 /hpf (0-2); Specific Grav Ur 1.019 (1.001-1.035); Squamous Epithelial Cell Urine Few /hpf (Few); Urobilinogen Urine Negative mg/dL (<2.0); WBC Urine 0-3 /hpf
[2021-06-07 17:06] VITALS: BP 141/67; PULSE 76
--- NOTE | 2021-06-07 17:21 | OBADM ---
This patient, Gladis Martel, admitted to the OB room OB Post 115 for observation. Patient/family oriented to hospital policies and general routines including ID bracelet, bed and alarms, visiting hours, pain management, procedures, bathroom and other care routines, personal items, smoking policy, room service/diet, and visiting hours. Patient/Family are encouraged to report perceived risks to care and to ask questions if they do not understand what they are told or what they should do.
[2021-06-07 17:40] VITALS: BP 132/56; PULSE 136
--- NOTE | 2021-06-10 07:22 | PM.OBTRLD ---
OB - Triage/Final Diagnosis Visit Information Reason for evaluation: threatened labor Comments/Additional reasons for admission: I have assessed the risk for this patient, Gladis Martel, and determined that she would benefit from observation care. Evaluation Laboratory results: Laboratory Tests 06/07/21 16:40 Urine Color Yellow Urine Appearance Clear Urine pH 6.0 Ur Specific [place] 1.019 Urine Protein Negative Urine Glucose (UA) Negative Urine Ketones Negative Ur Blood (Man) Negative Urine Nitrate Negative Urine Bilirubin Negative Urine Urobilinogen Negative Leukocyte Esterase Rfl Negative Urine RBC 0-2 Urine WBC 0-3 Ur Squamous Epith Cells Few Urine Bacteria Trace Urine Mucus Rare
== END 2021-06-07 18:30 | disposition home health service (06) ==
PROVIDERS: Admitting Provider Obstetrics & Gynecology; PCP Family Medicine; Visit Provider Obstetrics & Gynecology
DX: O47.02 False labor before 37 completed weeks of gestation, second trimester (principal); Z3A.23 23 weeks gestation of pregnancy
CPT/HCPCS: 81001; G0378; G0379

== ENCOUNTER 2021-06-11 04:04 | Observation (INO) | payer OTHER, SELFPAY ==
[2021-06-11 04:16] VITALS: BP 123/58; PULSE 81
[2021-06-11 04:20] VITALS: BMI 32.8
[2021-06-11 04:43] LABS: Add Urine Microscopic? NO; Appearance Urine Clear (Clear); Bilirubin Urine Negative (Negative); Blood Urine Negative (Negative); Color Urine Yellow (Yellow); Glucose Urine UA Negative (Negative); Ketones Urine Negative (Negative); Leukocyte Esterase Ur Negative LEU/UL (NEGATIVE); Nitrate Urine Negative (Negative); Protein Urine Negative (Negative); Specific Grav Ur 1.016 (1.001-1.035); Urobilinogen Urine Negative mg/dL (<2.0)
--- NOTE | 2021-06-11 11:35 | P.PNOB_ITS ---
OB - Triage/Final Diagnosis Visit Information Comments/Additional reasons for admission: I have assessed the risk for this patient, Gladis Martel, and determined that she would benefit from observation care. Evaluation Laboratory results: Laboratory Tests 06/11/21 04:32 Urine Color Yellow Urine Appearance Clear Urine pH 6.0 Ur Specific [place] 1.016 Urine Protein Negative Urine Glucose (UA) Negative Urine Ketones Negative Ur Blood (Man) Negative Urine Nitrate Negative Urine Bilirubin Negative Urine Urobilinogen Negative Ur Leukocyte Esterase Negative Vital signs: Vital Signs - 24 hr 06/11/21 04:16 Pulse Rate 81 Blood Pressure 123/58 L Final Diagnosis (1) Back pain affecting : Code(s): O99.891 - Other specified diseases and conditions complicating ; M54.9 - Dorsalgia, unspecified Status: Acute
== END 2021-06-11 06:20 | disposition home or self-care (01) ==
PROVIDERS: Admitting Provider Obstetrics & Gynecology; PCP Family Medicine; Visit Provider Obstetrics & Gynecology
DX: O99.891 Other specified diseases and conditions complicating pregnancy (principal); M54.9 Dorsalgia, unspecified; Z3A.00 Weeks of gestation of pregnancy not specified
CPT/HCPCS: 81003; 87086; G0378; G0379

== ENCOUNTER 2021-06-19 20:24 | Outpatient (RCR) | payer OTHER, SELFPAY ==
[2021-06-19 21:04] VITALS: BP 115/57; PULSE 75
--- NOTE | 2021-06-20 08:59 | PM.OBTRLD ---
OB - Triage/Final Diagnosis Visit Information Comments/Additional reasons for admission: I have assessed the risk for this patient, Gladis Martel, and determined that she would benefit from observation care. Evaluation Vital signs: Vital Signs - 24 hr 06/19/21 21:04 Pulse Rate 75 Blood Pressure [Left Arm] 115/57 L Final Diagnosis (1) Decreased movement: Code(s): O36.8190 - Decreased movements, unspecified trimester, not applicable or unspecified Status: Acute
== END 2021-06-21 21:04 | disposition home or self-care (01) ==
LOC: ANHLDR 20:24
PROVIDERS: PCP Family Medicine; Visit Provider Obstetrics & Gynecology
DX: O36.8120 Decreased fetal movements, second trimester, not applicable or unspecified (principal); Z3A.25 25 weeks gestation of pregnancy
CPT/HCPCS: 59025

== ENCOUNTER 2021-07-26 17:21 | Emergency (ER) | payer OTHER, SELFPAY ==
[2021-07-26 18:18] VITALS: BP 137/63; PULSE 73; RESP 16; TEMP 36.6; O2SAT 99
[2021-07-26 18:32] LABS: Basophils Percent Auto 0.3 % (0.2-1.2); Eosinophils Absolute Auto 0.1 K/mm3 (0-0.3); Hematocrit 32.8 % (37.0-47.0); Hemoglobin 11.6 g/dL (12.0-15.0); Immature Granulocyte Absolute 0.15 K/mm3 (0.00-0.031); Immature Granulocyte Percent A 1.1 % (0-0.5); Lymphocytes Percent Auto 19.6 % (18.3-44.2); Mean Corpuscular HGB Conc 35.4 g/dl (32-36); Mean Corpuscular Hemoglobin 32.3 pg (26-34); Mean Corpuscular Volume 91.4 fl (80-100); Monocytes Absolute Auto 1.1 K/mm3 (0.1-0.6); Monocytes Percent Auto 8.4 % (2.6-8.5); Neutrophils Absolute Auto 9.2 K/mm3 (1.3-6.7); Neutrophils Percent Auto 69.6 % (45.5-73.1); Platelet Count Result 199 k/mm3 (150-375); Red Blood Count 3.59 M/mm3 (4.2-5.4); Red Cell Distribution Width 12.5 % (11.5-14.5); White Blood Count 13.2 K/mm3 (4.5-10.0)
[2021-07-26 18:44] LABS: Alanine Aminotransferase 17 U/L (4-35); Albumin Level 3.6 g/dL (3.5-5.1); Alkaline Phosphatase 172 U/L (38-126); Anion Gap 7 mmol/L (8-16); Aspartate Amino Transferase 23 U/L (14-36); Bilirubin,Total 0.4 mg/dL (0.2-1.3); Blood Urea Nitrogen 8 mg/dL (7-17); Calcium 9.5 mg/dL (8.4-10.2); Carbon Dioxide 21 mmol/L (22-30); Chloride 108 mmol/L (98-107); Estimated CRCL calculation 183 ml/min; Estimated Glomerular Filt Rate > 60; Glucose 88 mg/dL (65-110); Lipase 154 U/L (23-300); Potassium 3.6 mmol/L (3.4-5.0); Sodium 136 mmol/L (137-145)
--- NOTE | 2021-07-26 21:00 | PC.NURSE ---
Pt approached triage desk and states Im just going to go. This RN advised pt on risks of leaving before seeing provider and benefits of staying. Pt verbalized understanding. Ambulated out of ED with steady gait, in no obvious distress.
== END 2021-07-26 21:00 | disposition left against medical advice (07) ==
LOC: ANHED 21:14
PROVIDERS: Emergency Medicine
DX: O26.893 Other specified pregnancy related conditions, third trimester (principal); R19.7 Diarrhea, unspecified; Z53.21 Procedure and treatment not carried out due to patient leaving prior to being seen by health care provider; Z3A.30 30 weeks gestation of pregnancy
CPT/HCPCS: 36415; 80053; 83690; 85025; 99199

== ENCOUNTER 2021-07-27 10:00 | Emergency (ER) | payer OTHER, SELFPAY ==
[2021-07-27 10:09] VITALS: BP 111/89; PULSE 96; RESP 16; TEMP 36.4; O2SAT 99
--- NOTE | 2021-07-27 11:26 | ED.NAVMDI ---
HPI - Nausea/Vomiting/Diarrhea General Chief complaint: Upper Respiratory Infection Stated complaint: Shortness of breath Source: patient and RN notes reviewed Limitations: no limitations History of Present Illness HPI Narrative: The vaccinated patient,--, EDC 30 September a non-smoker/nondrinker here with also unwell roommates-- presents with 1/2-week history of diarrhea x2-3/day associated with scratchy throat. Symptoms are mild, associated with mild cramping. No vaginal bleeding, decreased activity, abdominal pain, fever, vomiting, cough, frequency/dysuria, foreign travel, blood; no loss of taste/smell, CP, rash, shortness of breath. 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 before the weekend Related Data Home Medications Medication Instructions Recorded Confirmed MTS-upzf-HE-omega 3-fat com #1 1 cap PO QAM 03/16/21 07/27/21 sertraline [Zoloft] 25 mg PO DAILY 03/16/21 07/27/21 magnesium 100 mg PO DAILY 06/03/21 07/27/21 pyridoxine (vitamin B6) 100 mg PO DAILY 06/03/21 07/27/21 Allergies Allergy/AdvReac Type Severity Reaction Status Date / Time No Known Allergies Allergy Verified 07/27/21 10:11 Review of Systems Review of Systems: General/Constitutional: No weight loss,fever Eyes: N0: Redness,discharge Ears/Nose/Throat: No: Epistaxis,ear discharge Respiratory: Denies: Hemoptysis Gastrointestinal: No Vomiting, Bleeding-rectal Skin: No Lumps, eruption Neurologic: No Focal Weakness,Sz Hematologic: Denies: Petechiae/Purpura Psychiatric: No: Suicida ideationl All Other Systems: Reviewed and Negative PMF Past Medical History Medical History No pertinent past medical history Patient denies significant medical history Surgical History Surgical History No pertinent past surgical history Family History Family History Other No significant family history Social History Social History Smoking status: Never smoker Alcohol intake: never Substance use: never Gender identity (if verbalized by the patient): Female Sexual Orientation (if Verbalized by the Patient): Straight or Heterosexual Comments At time of signature, agree with nursing past medical, surgical, social and family history. There is no relevant family history pertinent to the presenting complaint Exam Narrative: General Appearance: Well appearing, No distress EYE: PERRLA, Conjunctiva clear Ears: External ear normal Nose: Normal nose Mouth/Throat: Normal appearing, Normal lips Neck: Supple Respiratory: Airway patent, No respiratory distress Cardiovascular: RRR Abdomen: Gravid soft, Non-tender, No massess, No organomegaly (no rebound/ surgical signs), Hyperactive bowel sounds Musculoskeletal: Full ROM Skin: Warm, Dry Neurological: A&O x3, CN II-X intact Psychiatric: Normal mood, Normal affect Course Vital Signs Vital signs: Vital Signs Temperature 97.6 F 07/27/21 10:09 Pulse Rate 96 07/27/21 10:09 Respiratory Rate 16 07/27/21 10:09 Blood Pressure 111/89 07/27/21 10:09 Pulse Oximetry 99 07/27/21 10:09 Temperature 97.6 F 07/27/21 10:09 Pulse Rate 96 07/27/21 10:09 Respiratory Rate 16 07/27/21 10:09 Blood Pressure 111/89 07/27/21 10:09 Pulse Oximetry 99 07/27/21 10:09 MDM - Nausea/Vomiting/Diarrhea Lab Data Labs: Lab Results 07/27/21 Range/Units 11:16 POC SARS CoV-2 Ag Negative (Negative) Discharge Plan Discharge Clinical Impression: Antepartum complication Diarrhea Qualifiers: Diarrhea type: unspecified type Qualified Code(s): R19.7 - Diarrhea, unspecified Patient Disposition: Home, Self-Care Condition: Stable Instr
== END 2021-07-27 11:33 | disposition home or self-care (01) ==
PROVIDERS: Emergency Provider Emergency Medicine; PCP Family Medicine
DX: O26.899 Other specified pregnancy related conditions, unspecified trimester (principal); R19.7 Diarrhea, unspecified; R06.02 Shortness of breath; Z20.822 Contact with and (suspected) exposure to COVID-19; Z3A.00 Weeks of gestation of pregnancy not specified
CPT/HCPCS: 87426; 99213; C9803; G0463

== ENCOUNTER → 2021-07-28 03:31 | Outpatient (CLI) | payer OTHER, SELFPAY ==
[2021-07-29 01:26] LABS: SARS-CoV-2 RNA PCR Negative
== END ==
PROVIDERS: PCP Family Medicine; Visit Provider Emergency Medicine
DX: Z20.822 Contact with and (suspected) exposure to COVID-19 (principal); R19.7 Diarrhea, unspecified
CPT/HCPCS: C9803; U0003; U0005

== ENCOUNTER 2021-08-11 16:01 | Outpatient (CLI) | payer OTHER, SELFPAY ==
[2021-08-11 16:35] VITALS: BP 126/64; PULSE 75
[2021-08-11 16:46] VITALS: BP 119/72; PULSE 76
[2021-08-11 17:00] VITALS: BP 127/64; PULSE 77
[2021-08-11 17:07] VITALS: BP 127/64; PULSE 77
== END 2021-08-11 17:05 | disposition home or self-care (01) ==
LOC: ANHOBOP 16:14 → ANHOBPP 16:18
PROVIDERS: PCP Family Medicine; Visit Provider Obstetrics & Gynecology
DX: O42.90 Premature rupture of membranes, unspecified as to length of time between rupture and onset of labor, unspecified weeks of gestation (principal); Z3A.00 Weeks of gestation of pregnancy not specified
CPT/HCPCS: 59025; 84112; 99199

== ENCOUNTER 2021-08-24 21:10 | Observation (INO) | payer OTHER, SELFPAY ==
[2021-08-24] VITALS (14 sets, daily range): BP systolic 125; BP diastolic 53; PULSE 65–108; TEMP 36.6; O2SAT 99–100; BMI 32.0
--- NOTE | 2021-08-24 21:55 | OBADM ---
This patient, Gladis Martel, admitted to the OB room OB Post 117 for observation. Patient/family oriented to hospital policies and general routines including ID bracelet, bed and alarms, visiting hours, pain management, procedures, bathroom and other care routines, personal items, smoking policy, room service/diet, and visiting hours. Patient/Family are encouraged to report perceived risks to care and to ask questions if they do not understand what they are told or what they should do.
[2021-08-24 22:01] LABS: Add Urine Microscopic? YES; Appearance Urine Cloudy (Clear); Bacteria Urine Trace /hpf; Bilirubin Urine Negative (Negative); Blood Urine Negative (Negative); Calcium Oxalate Crystals Urine Present /hpf; Color Urine Yellow (Yellow); Glucose Urine UA Negative (Negative); Ketones Urine Negative (Negative); Leukocyte Esterase Ur Negative LEU/UL (Negative); Mucus Urine Few /lpf; Nitrate Urine Negative (Negative); Protein Urine Negative (Negative); RBC Urine 0-2 /hpf (0-2); Specific Grav Ur 1.017 (1.001-1.035); Squamous Epithelial Cell Urine Rare /hpf (Few); Urobilinogen Urine Negative mg/dL (<2.0); WBC Urine 0-3 /hpf
[2021-08-24] MEDS: TERBUTALINE SULFATE 1 MG/ML VIAL 0.25 MG SUB-Q (22:35)
--- NOTE | 2021-08-24 23:45 | PC.NURSE ---
CHARTING DONE UNDER Salvatore SCHWARZ RN ACTUALLY CHARTED BY Reanna LUIS RN.
--- NOTE | 2021-08-26 19:17 | PM.OBTRLD ---
OB - Triage/Final Diagnosis Visit Information Comments/Additional reasons for admission: I have assessed the risk for this patient, Gladis Martel, and determined that she would benefit from observation care. Evaluation Laboratory results: Laboratory Tests 08/24/21 21:46 Urine Color Yellow Urine Appearance Cloudy H Urine pH 6.0 Ur Specific [place] 1.017 Urine Protein Negative Urine Glucose (UA) Negative Urine Ketones Negative Ur Blood (Man) Negative Urine Nitrate Negative Urine Bilirubin Negative Urine Urobilinogen Negative Leukocyte Esterase Rfl Negative Urine RBC 0-2 Urine WBC 0-3 Ur Squamous Epith Cells Rare Calcium Oxalate Crystal Present Urine Bacteria Trace Hyaline Casts 1-2 Urine Mucus Few H Final Diagnosis (1) Back pain affecting : Code(s): O99.891 - Other specified diseases and conditions complicating ; M54.9 - Dorsalgia, unspecified Status: Acute (2) Abdominal pain affecting : Code(s): O26.899 - Other specified related conditions, unspecified trimester; R10.9 - Unspecified abdominal pain Status: Acute
== END 2021-08-24 23:35 | disposition home or self-care (01) ==
PROVIDERS: Admitting Provider Obstetrics & Gynecology; PCP Family Medicine; Visit Provider Obstetrics & Gynecology
DX: O99.891 Other specified diseases and conditions complicating pregnancy (principal); M54.9 Dorsalgia, unspecified; R10.9 Unspecified abdominal pain; Z3A.34 34 weeks gestation of pregnancy
CPT/HCPCS: 81001; G0378; G0379; J3105

== ENCOUNTER 2021-08-28 15:48 | Observation (INO) | payer OTHER, SELFPAY ==
[2021-08-28 16:14] VITALS: BP 124/61; PULSE 66; RESP 20; TEMP 36.5
[2021-08-28 16:40] LABS: Add Urine Microscopic? YES; Amorphous Sediment Urine Few; Appearance Urine Cloudy (Clear); Bacteria Urine 4+ /hpf; Bilirubin Urine Negative (Negative); Blood Urine 1+ (Negative); Color Urine Yellow (Yellow); Glucose Urine UA Negative (Negative); Ketones Urine Negative (Negative); Leukocyte Esterase Ur 3+ LEU/UL (NEGATIVE); Mucus Urine Rare /lpf; Nitrate Urine Negative (Negative); Protein Urine Negative (Negative); Specific Grav Ur 1.013 (1.001-1.035); Squamous Epithelial Cell Urine Many /hpf (Few); Urobilinogen Urine Negative mg/dL (<2.0)
--- NOTE | 2021-09-04 11:26 | PM.OBTRLD ---
OB - Triage/Final Diagnosis Visit Information Reason for evaluation: threatened labor Comments/Additional reasons for admission: I have assessed the risk for this patient, Gladis Martel, and determined that she would benefit from observation care. Evaluation Laboratory results: Laboratory Tests 08/28/21 16:23 Urine Color Yellow Urine Appearance Cloudy H Urine pH 7.0 Ur Specific [place] 1.013 Urine Protein Negative Urine Glucose (UA) Negative Urine Ketones Negative Ur Blood (Man) 1+ H Urine Nitrate Negative Urine Bilirubin Negative Urine Urobilinogen Negative Ur Leukocyte Esterase 3+ H Urine RBC 3-5 H Urine WBC 10-15 H Ur Squamous Epith Cells Many H Amorphous Sediment Few H Urine Bacteria 4+ H Hyaline Casts 1-2 Urine Mucus Rare
== END 2021-08-28 17:22 | disposition home or self-care (01) ==
PROVIDERS: Admitting Provider Obstetrics & Gynecology; PCP Family Medicine; Visit Provider Obstetrics & Gynecology
DX: O47.03 False labor before 37 completed weeks of gestation, third trimester (principal); Z3A.35 35 weeks gestation of pregnancy
CPT/HCPCS: 81001; 87086; G0378; G0379

== ENCOUNTER 2021-09-12 13:45 | Outpatient (CLI) | payer OTHER, SELFPAY ==
[2021-09-12 14:22] VITALS: BP 140/64; PULSE 78
== END 2021-09-12 14:34 | disposition home or self-care (01) ==
LOC: ANHOBOP 14:24 → ANHLDR 14:25
PROVIDERS: PCP Family Medicine; Visit Provider Obstetrics & Gynecology
DX: O42.90 Premature rupture of membranes, unspecified as to length of time between rupture and onset of labor, unspecified weeks of gestation (principal); Z3A.00 Weeks of gestation of pregnancy not specified
CPT/HCPCS: 59025; 84112; 99199

== ENCOUNTER 2021-09-14 11:06 | Outpatient (RCR) | payer OTHER, SELFPAY ==
[2021-09-08 13:25] VITALS: BP 129/79; PULSE 90
[2021-09-11 08:57] VITALS: BP 124/66; PULSE 71
--- NOTE | ~2021-09-14 | US_ITS ---
EXAMINATION: US OB BPP wo non-stress DATE: 09/08/2021 12:58 INDICATION: Intrauterine growth restriction. Third trimester. TECHNIQUE: Real-time pelvic ultrasound was performed. COMPARISON: Ultrasound 03/16/2021, 02/05/2021 FINDINGS: There is a single living fetus in vertex presentation. The placenta is anterior. heart rate is 125 beats per minute (bpm). Biophysical profile performed by the technologist: breathing (30 sec sustained breathing in 30 minutes): 2 out of 2 movement (3 gross body movements in 30 minutes): 2 out of 2 tone (one episode of ftxtqrp-ftldddeku-yalitun limb movement): 2 out of 2 Amniotic fluid pocket (2 cm): 2 out of 2 Total score: 8 out of 8 IMPRESSION: 1. Single living fetus in vertex presentation. 2. Biophysical profile 8 out of 8. Reviewed, dictated and finalized at location A. N SHOVELER
--- NOTE | ~2021-09-14 | US_ITS ---
EXAMINATION: US OB BPP wo non-stress EXAM DATE: 09/14/2021 12:20 INDICATION: IUGR. 3rd trimester. TECHNIQUE: Pelvic obstetrical transabdominal sonogram was performed by a technologist. There are mu ltiple grayscale and Doppler images available for interpretation. Comparison is made to prior examina tion from 09/08/2021. FINDINGS: There is a single fetus identified in vertex presentation with a heart rate of 134 beats per minute. The placenta is located in the anterior position. There is no sonographic evidence of re troplacental hemorrhage identified. BIOPHYSICAL PROFILE (performed by the technologist) breathing (30 sec sustained breathing in 30 minutes): 2 out of 2 movement (3 gross body movements in 30 minutes): 2 out of 2 tone (one episode of jwtmopu-bezctuzaz-ndxyssw limb movement): 2 out of 2 Amniotic fluid pocket (2 cm): 2 out of 2 Total score: 8 out of 8 IMPRESSION: 1. Single fetus with heart rate of 134 bpm. 2. Normal biophysical profile score of 8 out of 8. Reviewed, dictated and finalized at location B. [employer] SOFTWARE [employer]
[2021-09-14 11:51] VITALS: BP 120/65; PULSE 92
== END 2021-11-12 09:28 | disposition home or self-care (01) ==
LOC: ANHOBOP 11:06
PROVIDERS: PCP Family Medicine; Visit Provider Obstetrics & Gynecology
DX: O36.5930 Maternal care for other known or suspected poor fetal growth, third trimester, not applicable or unspecified (principal); Z3A.36 36 weeks gestation of pregnancy; Z3A.37 37 weeks gestation of pregnancy
CPT/HCPCS: 59025; 76819

== ENCOUNTER 2021-09-16 16:50 | Inpatient (IN) | payer OTHER, SELFPAY ==
[2021-09-16] VITALS (7 sets, daily range): BP systolic 111–134; BP diastolic 61–77; PULSE 66–90; TEMP 36.6; BMI 33.3
--- NOTE | 2021-09-16 17:10 | LDADM ---
This patient, Gladis Martel, was admitted to Labor/Delivery/Recovery 108 on 09/16/21 at 16:50. Plans for labor, pain management and were discussed with patient. Patient is oriented to hospital policies and general routines including ID bracelet, bed and alarms, pain management, procedures, bathroom and other care routines, personal items, smoking policy, room service/diet and guest tray routines, infant security routines, call light and visiting hours. Patient is encouraged to report perceived risks to care and to ask questions if she does not understand what she is told or what she should do. See OBIX for further documentation.
[2021-09-16] MEDS: DINOPROSTONE 10 MG VAG INSERT VAGINAL (17:30)
[2021-09-16 17:39] LABS: Basophils Percent Auto 0.2 % (0.2-1.2); Eosinophils Absolute Auto 0.1 K/mm3 (0-0.3); Eosinophils Percent Auto 0.4 % (0-4.4); Hematocrit 35.4 % (37.0-47.0); Hemoglobin 12.4 g/dL (12.0-15.0); Immature Granulocyte Absolute 0.08 K/mm3 (0.00-0.031); Immature Granulocyte Percent A 0.7 % (0-0.5); Lymphocytes Absolute Auto 2.08 K/mm3 (0.9-3.2); Lymphocytes Percent Auto 16.9 % (18.3-44.2); Mean Corpuscular Hemoglobin 32.6 pg (26-34); Mean Corpuscular Volume 93.2 fl (80-100); Mean Platelet Volume 10.7 fl (7.4-10.4); Monocytes Absolute Auto 1.3 K/mm3 (0.1-0.6); Monocytes Percent Auto 10.4 % (2.6-8.5); Neutrophils Absolute Auto 8.8 K/mm3 (1.3-6.7); Neutrophils Percent Auto 71.4 % (45.5-73.1); Platelet Count Result 195 k/mm3 (150-375); Red Cell Distribution Width 13.2 % (11.5-14.5); White Blood Count 12.3 K/mm3 (4.5-10.0)
[2021-09-17] VITALS (158 sets, daily range): BP systolic 77–217; BP diastolic 30–175; PULSE 59–187; RESP 16; TEMP 36.4–37.2; O2SAT 71–100
[2021-09-17] MEDS: LACTATED RINGERS 1,000 ML 125 ML IV CONT ×3 (06:28→14:25)
[2021-09-17] MEDS: OXYTOCIN 30 UNITS/NS 500 ML 30 UNITS/500 ML BAG 6 UNITS IV CONT (06:29)
--- NOTE | 2021-09-17 07:02 | PM.IMHP ---
H&P: HPI History of Present Illness Date/Time: 09/17/21 06:46 Gladis is a 21yo @ 38.1wks (ALANA 09/30/21) who was admitted to L&D yesterday for induction of labor due to IUGR. She is s/p cervidil overnight; now on pitocin. She reports good movement. Feeling contractions. No VB or LOF. She has had regular care. 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 gas at work until 30wks Chief Complaint: induction of labor Review of Systems Review of Systems: All systems reviewed & are unremarkable except as noted in HPI and below (HPI) [facility] Past Medical History Medical History No pertinent past medical history Patient denies significant medical history Surgical History Surgical History No pertinent past surgical history Family History Family History Other No significant family history Social History Social History Smoking status: Former smoker Tobacco type: cigarettes Smoking end date: 02/04/21 Alcohol intake: never Substance use: former Last use: LAST 01/30/21 Gender identity (if verbalized by the patient): Female Sexual Orientation (if Verbalized by the Patient): Straight or Heterosexual Spiritual care concerns: No Meds Home Medications and Allergies Home Medications Medication Instructions Recorded Confirmed Type TLI-qdie-GE-omega 3-fat com #1 1 cap PO QAM 03/16/21 09/16/21 History sertraline [Zoloft] 25 mg PO DAILY 03/16/21 09/16/21 History Allergies Allergy/AdvReac Type Severity Reaction Status Date / Time No Known Allergies Allergy Verified 09/16/21 17:05 Vital Signs Vital Signs - 24 hr 09/16/21 17:07 09/16/21 17:30 09/16/21 18:00 Temperature 36.6 C Pulse Rate 82 66 90 Blood Pressure 134/77 128/70 111/61 09/16/21 18:30 09/16/21 19:00 09/16/21 19:30 Temperature Pulse Rate 66 71 80 Blood Pressure 118/74 118/72 134/75 09/16/21 23:26 09/17/21 05:30 09/17/21 06:30 Temperature 36.6 C 36.9 C Pulse Rate 81 Blood Pressure 117/63 09/17/21 06:36 Temperature Pulse Rate 72 Blood Pressure 121/75 Exam Const: General: cooperative, healthy appearing, comfortable and no acute distress Resp: Effort & Inspection: normal respiratory effort Cardio: Rate: regular rate GI: Inspection: non-distended GI Palp: No abdominal tenderness and Yes Soft to palpation : Other: FHT's: 130's/ mod fatemeh/ + accels/ no decels - cat 1 TOCO: ctx's q3 min Cervix:3/50/-3 Membranes: AROM, clear @ 0700 Presentation: cephalic Skin: General skin exam: normal color Neuro: General: patient oriented x3 Extrem: General: normal to inspection Psych: Appearance: grossly normal Affect: normal affect Attitude: cooperative H&P: Results Labs Labs: Short CBC 09/16/21 Range/Units 17:17 WBC 12.3 H (4.5-10.0) K/mm3 Hgb 12.4 (12.0-15.0) g/dL Hct 35.4 L (37.0-47.0) % Plt Count 195 (150-375) k/mm3 Assessment and Plan Assessment and plan (1) IUGR (intrauterine growth restriction): Status: Acute (2) : Qualifiers: Weeks of gestation: 38 weeks Qualified Code(s): Z3A.38 - 38 weeks gestation of Code(s): Z34.90 - Encounter for supervision of normal , unspecified, unspecified trimester Status: Acute (3) Encounter for induction of labor: Code(s): Z34.90 - Encounter for supervision of normal , unspecified, unspecified trimester Status: Acute Additional Plan - Admitted overnight for cervidil IOL - Continue pitocin per protocol - Continuous monitoring - Anesthesia consult PRN pain
--- NOTE | 2021-09-17 07:02 | WPDHPUPDATE1 ---
History and Physical Update Update Date/Time: 09/17/21 07:02 History and Physical has been reviewed, including an updated exam of the patient. There are NO changes in the patient's condition. Risks, benefits, and alternatives have been discussed and questions answered. Patient agrees to proceed with procedure.
[2021-09-17] MEDS: ONDANSETRON INJ 4 MG/2 ML VIAL IV PUSH (07:38)
[2021-09-17] MEDS: fentaNYL CITRATE INJ (*CRX) 100 MCG/2 ML VIAL IV PUSH (08:06)
[2021-09-17 09:52] LABS: Rapid Plasma Reagin Non-Reactive (NonReactive)
--- NOTE | 2021-09-17 18:02 | PM.OBPRVD ---
OB - Delivery Note Procedure Delivery date: 09/17/21 events: Labor Induction (for IUGR) Intrapartal events: None Induction method: per cervidil protocol Delivery augmentation: rupture of membranes and pitocin Delivery monitor: external FHT and internal uterine Route of delivery: Laceration Description: None Quantitative Blood Loss (ml): 150 Anesthesia type: Epidural Disposition: floor Baby Date of : 09/17/21 Time of : 17:43 Weeks of gestation at delivery: 38 (.1) gender: Male Weight (pounds): 5 Weight (ounces): 13 presentation: vertex position: Left Occiput Anterior Placenta delivery description: Expressed cord vessel description: 3 Vessels, Nuchal Cord (x2), Loose and Delayed Cord Clamping score one minute: 9 score five minutes: 9 Narrative: Gladis progressed to complete dilation strong desire to push. She pushed for approximately 30 minutes with good maternal effort. She delivered the head over intact perineum. Nuchal cord x2 was palpated but loose and delivered through. She easily delivered the infant's shoulders and body. The infant had spontaneous cry and was immediately placed skin to skin. The mouth and nose were bulb suctioned. Delayed cord clamping was performed. The umbilical cord was then clamped and cut. A segment of cord was collected for cord gases. The remaining cord blood was collected for typing. With Pitocin running and gentle downward traction the cord, the placenta delivered without complications. Bimanual massage was performed and the uterus firmed up with bimanual massage. Minimal bleeding was noted. The patient was examined and no lacerations were noted. Sponge, lap, and instrument counts were correct at the end of the procedure. Mom and baby were left bonding in the birthing suite in stable condition.
[2021-09-17] MEDS: OXYTOCIN 30 UNITS/NS 500 ML 30 UNITS/500 ML BAG 125 UNITS IV CONT (18:22)
[2021-09-17] MEDS: IBUPROFEN 600 MG TABLET PO (19:31)
[2021-09-17] MEDS: WITCH HAZEL 40 PADS 1 PAD TOPICAL (19:32)
[2021-09-17] MEDS: BENZOCAINE 20% AER SPR (*SP) 56 GM CAN 1 SPRAY TOPICAL (19:32)
[2021-09-18 04:59] LABS: Hematocrit 34.7 % (37.0-47.0); Hemoglobin 12.2 g/dL (12.0-15.0)
[2021-09-18] MEDS: IBUPROFEN 600 MG TABLET PO (05:00)
--- NOTE | 2021-09-18 07:58 | P.PNOB_ITS ---
OB - PN: Subj Subjective Date/time seen: 09/18/21 07:58 PPD#1 Gladis reports doing well today. 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 Her pain is controlled. She has tolerated regular diet, voided, had a BM, and ambulated. She is bottle feeding. She would like her son circumcised. She denies CP, fever, chills, SOB, SANDERS, vision changes, N/V, dizziness or palpitations. She would like to go home tomorrow. OB - PN: Obj Data Labs CBC & Chem 7: 09/18/21 04:47 Labs: Laboratory Results - last 24 hr 09/16/21 09/18/21 17:17 04:47 Hgb 12.2 Hct 34.7 L RPR Non-reactive OB - PN A/P Assessment and Plan (1) Normal vaginal delivery of first : Code(s): O80 - Encounter for full-term uncomplicated delivery Status: Acute Plan day: 1 Plan: routine care and discharge home (tomorrow) Comments: - f/u in 4 wks - ER return precautions: fever, n/v/abd pain, bleeding, htn - pelvic rest, take meds as prescribed. Time Spent With Patient Time: Total time spent is greater than 50% in coordination of care (as documented) at patient's floor/unit and/or counseling patient: Review of Systems Review of Systems: All systems reviewed & are unremarkable except as noted in HPI and below (HPI) Exam Const: General: cooperative, healthy appearing, comfortable and no acute distress Resp: Effort & Inspection: normal respiratory effort Auscultation: clear to auscultation bilaterally Cardio: Rate: regular rate GI: Inspection: normal to inspection and non-distended GI Palp: No abdominal tenderness and Yes Soft to palpation Auscultation: normal bowel sounds : Other: fundus firm Skin: General skin exam: normal color Neuro: General: patient oriented x3 Extrem: General: normal to inspection Psych: Appearance: grossly normal Affect: normal affect Attitude: cooperative
[2021-09-18 08:15] VITALS: BP 114/58; PULSE 71; RESP 16; TEMP 36.3; O2SAT 99
--- NOTE | 2021-09-18 09:17 | WPDANLDPN2 ---
Anes-Prog Note L&D Date/Time: 09/18/21 09:17 Comfortable throughout: labor and delivery Neuraxial method: epidural Epidural/Spinal procedure site: clean & non-tender Neuro status: Neuro function grossly intact. Cardiovascular status: normal Respiratory status: normal Airway patency: baseline Mental status: baseline Post-Op hydration status: normal Vital Signs: Last Vital Signs Temp 36.3 C L 09/18/21 08:15 Pulse 71 09/18/21 08:15 Resp 16 09/18/21 08:15 BP 114/58 L 09/18/21 08:15 Pulse Ox 99 09/18/21 08:15 Pain score (VAS): 0 I/O: Intake & Output 09/17/21 09/18/21 09/18/21 23:59 07:59 15:59 Intake Total 500 Output Total 268 Balance 232 Post-procedural complaints: none Patient feedback: Patient satisfied with anesthetic care.
[2021-09-18] MEDS: TETANUS,DIPHTHERIA,AC PERTUSSIS ADULT (0.5 ML) BOOSTRIX IM (11:25)
[2021-09-18] MEDS: SERTRALINE HCL 25 MG TABLET PO (11:25)
[2021-09-18 12:03] VITALS: BP 117/55; PULSE 74; RESP 18; TEMP 36.2; O2SAT 99
[2021-09-18 20:00] VITALS: BP 118/60; PULSE 76; RESP 18; TEMP 36.4; O2SAT 99
[2021-09-19 08:01] VITALS: BP 130/77; PULSE 71; RESP 18; TEMP 36.4
[2021-09-19] MEDS: WITCH HAZEL 40 PADS 1 PAD TOPICAL (11:01)
[2021-09-19] MEDS: SERTRALINE HCL 25 MG TABLET PO (11:01)
--- NOTE | 2021-09-20 14:07 | PM.OBDSVD ---
DS: Admitting Diagnosis Discharge Date 09/19/21 Admitting Diagnosis Induction of labor IUGR DS: Discharge Diagnosis Discharge Diagnosis (1) Normal vaginal delivery of first : Code(s): O80 - Encounter for full-term uncomplicated delivery Status: Acute OB - DS: Summary OB Procedures : NST and Ultrasound OB Procedures Intrapartum: Spontaneous Vag Delivery OB Procedures: : None Peripartum Data Infant Delivery Method: Natural Vaginal Laceration Description: None complications: none 1: Gender: Male Disposition of : home Status at Discharge Functional status at discharge: independent ambulation Overall status at discharge: patient is back to baseline Time Spent with Patient Time attestation: Total time spent providing and/or coordinating discharge services: Time spent: Less than 30 minutes Exam Const: General: cooperative, healthy appearing, comfortable and no acute distress Resp: Effort & Inspection: normal respiratory effort Auscultation: clear to auscultation bilaterally Cardio: Rate: regular rate GI: Inspection: normal to inspection and non-distended GI Palp: No abdominal tenderness and Yes Soft to palpation Auscultation: normal bowel sounds : Other: fundus firm Skin: General skin exam: normal color Neuro: General: patient oriented x3 Extrem: General: normal to inspection Psych: Appearance: grossly normal Affect: normal affect Attitude: cooperative DS: Data Data Completed and Pending Pending studies at discharge: Pending at discharge 09/17/21 17:47 Surgical [PTH] Routine Discharge Plan Discharge Attending physician on discharge: Iqra Lopez Discharging Clinician: Iqra Lopez Anticipated Discharge Date/Time: 09/19/21 19:00 Patient Disposition: Home, Self-Care Activity: may shower and pelvic rest Diet: regular Discharge Instructions: Education: Mom and Baby Guide Given to: Mother Follow-Up: Call your delivering provider's office for an appointment to be seen in: 4 Weeks Mom and baby should come [facility] for the follow-up appointment. Appointment Date/Time: September 21, 2021 at 10:00 am What to expect at your follow-up visit: Physical Assessment Call [phone] if you are unable to keep your appointment time. BREAST CARE: * Wear a snug supportive bra. * For engorgement discomfort: Bottle Feeding: * May apply ice packs PERINEAL CARE: * Until bleeding stops, use your jose rafael bottle after urinating * Change your pad frequently throughout the day * No tub baths until seen by your physician - You may shower ACTIVITY: * Rest as much as possible. * Do not exercise or lift anything heavier than your baby (such as laundry or other children.) * Avoid stairs or driving as much as possible. * Do not put anything into the vagina. No douching, tampons, or sexual activity until seen by physician. NOTIFY PHYSICIAN IF YOU HAVE ANY QUESTIONS OR IF ANY OF THE FOLLOWING SYMPTOMS OCCUR: * If your perineum becomes red, swollen, or more painful than what you have experienced in the hospital. * If your vaginal bleeding becomes foul smelling. * If your vaginal bleeding becomes more heavy than a period or if your bleeding changes from pink to bright red. However, you may pass an occasional walnut-sized clot once or twice for the first week . * If you experience a sharp, shooting pain in you calves. * If you discover a hard, reddened area on your breast or if you experience flu-like symptoms. DIET: * Eat regular, well-balanced meals. * Drink plenty of fluids daily. Patient Instructions: Antibiotic Form Stand Alone Forms: General Discharge Information Follow-up/Referrals: Iqra Lopez MD [Physician] - 4 Weeks Discharge Medications: New acetaminophen [Mapap (acetaminophen)] 325 mg Tablet 650 mg PO Q6H PRN (Reason: Mild Pain (1-3)
[2021-09-21 10:37] VITALS: BP 126/79; PULSE 74; RESP 20; TEMP 36.8; O2SAT 100
== END 2021-09-19 17:47 | disposition home or self-care (01) | DRG 560 ==
LOC: ANHLDR 16:52 → ANHOB2 09-17 20:33
PROVIDERS: Admitting Provider Obstetrics & Gynecology; PCP Family Medicine; Visit Provider Obstetrics & Gynecology
DX: O76 Abnormality in fetal heart rate and rhythm complicating labor and delivery (principal); O36.5930 Maternal care for other known or suspected poor fetal growth, third trimester, not applicable or unspecified; O99.344 Other mental disorders complicating childbirth; O99.02 Anemia complicating childbirth; D64.9 Anemia, unspecified; F41.9 Anxiety disorder, unspecified; O69.81X0 Labor and delivery complicated by cord around neck, without compression, not applicable or unspecified; Z3A.38 38 weeks gestation of pregnancy; Z37.0 Single live birth; Z87.891 Personal history of nicotine dependence; Z23 Encounter for immunization
CPT/HCPCS: 36415; 85014; 85018; 85025; 86592; 86850; 86900; 86901; 88307; 90471; 90653; 90715; A9270; G0008; J2405; J2590; J2795; J3010; J7120

== ENCOUNTER 2021-10-21 14:31 | Emergency (ER) | payer OTHER, SELFPAY ==
[2021-10-21 14:32] VITALS: BP 142/94; PULSE 71; RESP 16; TEMP 36.2; O2SAT 99
--- NOTE | 2021-10-21 17:38 | PC.NURSE ---
pt received phone call at the intake desk, shortly after she came up to the desk & stated her sister was coming to get her. pt states her bleeding has slowed down. instructed pt to come back if her symptoms worsened , or any other symptoms arise. pt ambulatory out of ed with nl steady gait. no distress noted.
== END 2021-10-22 04:29 | disposition left against medical advice (07) ==
PROVIDERS: PCP Family Medicine
DX: O72.2 Delayed and secondary postpartum hemorrhage (principal)
CPT/HCPCS: 99199

== ENCOUNTER 2022-05-19 17:23 | Emergency (ER) | payer BC, SELFPAY ==
[2022-05-19 17:40] VITALS: BP 146/74; PULSE 94; RESP 16; TEMP 36.8; O2SAT 99
--- NOTE | 2022-05-19 18:12 | ED.EAR ---
HPI - Ear Problem General Chief complaint: Upper Respiratory Infection Stated complaint: sore throat Time Seen by Provider: 05/19/22 18:04 Source: patient Mode of arrival: ambulatory Limitations: no limitations History of Present Illness HPI Narrative: Patient presents today complaining of left ear pain since this morning. Pain increases with swallowing. Hearing normal. Currently rates her pain 5/10 and has been taking ibuprofen without relief. Denies any additional symptoms. Related Data Home Medications Medication Instructions Recorded Confirmed sertraline 25 mg tablet (Zoloft) 25 mg PO DAILY 03/16/21 02/10/22 Allergies Allergy/AdvReac Type Severity Reaction Status Date / Time No Known Allergies Allergy Verified 02/10/22 14:42 Review of Systems Review of Systems: CONSTITUTIONAL: Denies body aches, fever, chills, or sweats. EYES: Denies visual changes, redness, or discharge. ENT: Denies rhinorrhea, congestion, sore throat. + Left ear pain CARDIOVASCULAR: Denies chest pain, palpitations, or edema. RESPIRATORY: Denies cough or dyspnea. GASTROINTESTINAL: Denies abdominal pain, nausea, vomiting, or diarrhea. GENITOURINARY: Denies dysuria or hematuria. SKIN: Denies rash, itching, or wounds. MUSCULOSKELETAL: Denies back pain, joint pain, or myalgia. NEUROLOGIC: Denies headache, numbness, tingling, or weakness. PSYCH: Denies depression or anxiety. 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 Please see nursing chart for further information. There is no relevant family history pertinent to the presenting complaint Exam Narrative: GENERAL: Well-appearing, well-nourished, and in no acute distress. HEAD: Normocephalic, atraumatic. EYES: EOMI. No redness or drainage. Conjunctivae normal. ENT: Mucous membranes pink and moist. Nares clear. No rhinorrhea. Left TM is erythematous and bulging. Throat normal. Uvula midline. NECK: Normal AROM. CHEST: No respiratory distress. HEART: Regular rate and rhythm. No murmur appreciated. Normal peripheral pulses. EXTREMITIES: Normal range of motion. No edema. SKIN: Warm, dry, no rash. Capillary refill normal. Normal skin turgor. NEURO: No focal deficits. Alert and oriented x3. Gait steady. PSYCH: Normal affect. No signs of depression or anxiety. Course Course Level of Care: Express Care Visit Vital Signs Vital signs: Vital Signs Temperature 98.2 F 05/19/22 17:40 Pulse Rate 94 05/19/22 17:40 Respiratory Rate 16 05/19/22 17:40 Blood Pressure 146/74 H 05/19/22 17:40 Pulse Oximetry 99 05/19/22 17:40 Oxygen Delivery Room Air 05/19/22 17:40 Temperature 98.2 F 05/19/22 17:40 Pulse Rate 94 05/19/22 17:40 Respiratory Rate 16 05/19/22 17:40 Blood Pressure 146/74 H 05/19/22 17:40 Pulse Oximetry 99 05/19/22 17:40 Oxygen Delivery Room Air 05/19/22 17:40
== END 2022-05-19 18:25 | disposition home or self-care (01) ==
PROVIDERS: Emergency Provider Nurse Practitioner
DX: H66.002 Acute suppurative otitis media without spontaneous rupture of ear drum, left ear (principal); Z87.891 Personal history of nicotine dependence; F31.9 Bipolar disorder, unspecified
CPT/HCPCS: 87081; 87880; 99213; G0463

== ENCOUNTER 2022-09-03 09:43 | Emergency (ER) | payer BC, SELFPAY ==
[2022-09-03 09:52] VITALS: BP 126/74; PULSE 70; RESP 16; TEMP 36.6; O2SAT 99
--- NOTE | 2022-09-03 11:06 | ED.EAR ---
HPI - Ear Problem General Chief complaint: Ear Stated complaint: pain in both ears and sore throat Time Seen by Provider: 09/03/22 10:59 Source: patient Mode of arrival: ambulatory Limitations: no limitations History of Present Illness HPI Narrative: Patient presents today complaining of bilateral ear pain and popping since yesterday with mild sore throat. Denies difficulty hearing, drainage from the ears, fever, cough, congestion. She currently rates her pain 02/07 and has been taking ibuprofen with some relief. Related Data Home Medications Medication Instructions Recorded Confirmed lisinopril 10 mg tablet 10 mg DIRECTED 09/03/22 09/03/22 Allergies Allergy/AdvReac Type Severity Reaction Status Date / Time No Known Allergies Allergy Verified 02/10/22 14:42 Review of Systems Review of Systems: CONSTITUTIONAL: Denies body aches, fever, chills, or sweats. EYES: Denies visual changes, redness, or discharge. ENT: Denies rhinorrhea, congestion. + Bilateral ear pain, sore throat CARDIOVASCULAR: Denies chest pain, palpitations, or edema. RESPIRATORY: Denies cough or dyspnea. GASTROINTESTINAL: Denies abdominal pain, nausea, vomiting, or diarrhea. GENITOURINARY: Denies dysuria or hematuria. SKIN: Denies rash, itching, or wounds. MUSCULOSKELETAL: Denies back pain, joint pain, or myalgia. NEUROLOGIC: Denies headache, numbness, tingling, or weakness. PSYCH: Denies depression or anxiety. [facility] Past Medical History Medical History Bipolar disorder (manic depression) No pertinent past medical history Patient denies significant medical history Surgical History Surgical History No pertinent past surgical history Family History Family History Other No significant family history Social History Social History Smoking status: Former smoker Tobacco type: cigarettes Smoking end date: 02/04/21 Alcohol intake: never Alcohol use details: rarely Substance use: former Last use: LAST 01/30/21 Additional occupation/education comments: [employer] Gender identity (if verbalized by the patient): Female Sexual Orientation (if Verbalized by the Patient): Straight or Heterosexual Spiritual care concerns: No Comments At time of signature, I have reviewed and agree with nursing past medical, surgical, social and family history unless otherwise noted. Please see nursing chart for further information. There is no relevant family history pertinent to the presenting complaint Exam Narrative: GENERAL: Well-appearing, well-nourished, and in no acute distress. HEAD: Normocephalic, atraumatic. EYES: EOMI. No redness or drainage. Conjunctivae normal. ENT: Mucous membranes pink and moist. Nares clear. No rhinorrhea. bilateral TMs normal with mild middle ear effusions. Throat normal. Uvula midline. NECK: Normal AROM. Supple. No lymphadenopathy. CHEST: No respiratory distress. Clear to auscultation. HEART: Regular rate and rhythm. No murmur appreciated. Normal peripheral pulses. EXTREMITIES: Normal range of motion. No edema. SKIN: Warm, dry, no rash. Capillary refill normal. Normal skin turgor. NEURO: No focal deficits. Alert and oriented x3. Gait steady. PSYCH: Normal affect. No signs of depression or anxiety. Course Course Level of Care: Express Care Visit Vital Signs Vital signs: Vital Signs Temperature 97.8 F 09/03/22 09:52 Pulse Rate 70 09/03/22 09:52 Respiratory Rate 16 09/03/22 09:52 Blood Pressure 126/74 09/03/22 09:52 Pulse Oximetry 99 09/03/22 09:52 Oxygen Delivery Room Air 09/03/22 09:52 Temperature 97.8 F 09/03/22 09:52 Pulse Rate 70 09/03/22 09:52 Respiratory Rate 16 09/03/22 09:52 Blood Pressu
== END 2022-09-03 11:15 | disposition home or self-care (01) ==
PROVIDERS: Emergency Provider Nurse Practitioner
DX: H65.03 Acute serous otitis media, bilateral (principal); Z87.891 Personal history of nicotine dependence
CPT/HCPCS: 99211; G0463

== ENCOUNTER 2022-09-22 17:43 | Emergency (ER) | payer BC, SELFPAY ==
--- NOTE | 2022-09-22 18:16 | ED.URI ---
HPI - URI/Sore Throat General Chief Complaint: Ear Stated Complaint: sore throat Time Seen by Provider: 09/22/22 18:20 Source: patient and RN notes reviewed Mode of arrival: ambulatory Limitations: no limitations History of Present Illness HPI Narrative: 22 old female presents concern for right ear pain with swallowing, sore throat. She reports the symptoms started about 3 days ago but she has had nasal congestion and rhinorrhea for 2 weeks. Reports swollen lymph node. She denies fever, aches, chills, sweats. MD elicited complaint: cough and sore throat Related Data Allergies Allergy/AdvReac Type Severity Reaction Status Date / Time No Known Allergies Allergy Verified 09/22/22 18:02 Review of Systems Review of Systems: CONSTITUTIONAL: Denies malaise, chills, sweats, or fever. EYES: Denies visual changes, redness, or discharge. ENT: Reports rhinorrhea, congestion, sinus pain, otalgia and sore throat. CARDIOVASCULAR: Denies chest pain, palpitations, or edema. RESPIRATORY: Reports cough. Denies dyspnea. GASTROINTESTINAL: Denies abdominal pain, nausea, vomiting, diarrhea SKIN: Denies rash or itching. MUSCULOSKELETAL: Denies myalgia. NEUROLOGIC: Denies headache. 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 There is no relevant family history pertinent to the presenting complaint Exam Narrative: GENERAL: Well-appearing, well-nourished, and in no acute distress. HEAD: Normocephalic EYES: PERRLA, conjunctivae clear ENT: Nares clear, turbinates edematous and erythematous. Mucous membranes moist. TM pearly grijalva with dull light reflex bilaterally; no tragal tenderness. Oropharynx not erythematous without lesions. Tonsils not enlarged and without exudate, no drooling, no hoarseness, no trismus, uvula midline. NECK: Supple. No lymphadenopathy CHEST: Clear to auscultation, breath sounds equal. No wheezing, rhonchi, rales, or stridor. No respiratory distress, speaks in full sentences. HEART: Regular rate and rhythm. No murmur heard. SKIN: Warm, dry, no rash. NEURO: Alert and oriented x3. PSYCH: Normal mood and affect Course Course Emergency Course: Patient is aware of diagnosis, understands and agrees to treatment plan. Anticipatory guidance given. Patient agrees to follow-up as directed and is aware of reasons to seek care at the emergency department. Portions of this record may have been created with voice recognition software Level of Care: Express Care Visit Vital Signs Vital signs: Reviewed. MDM - URI/Sore Throat MDM Narrative Medical decision making narrative: Differential diagnosis considered: Ross virus, strep pharyngitis, allergic rhinitis, upper respiratory tract infection, sinusitis, rhinosinusitis, nasopharyngitis. viral pharyngitis, otitis media, otitis externa, pneumonia, bronchitis, viral cough sy
[2022-09-22 18:22] VITALS: BP 136/70; PULSE 91; RESP 18; TEMP 36.4; O2SAT 98
== END 2022-09-22 19:05 | disposition home or self-care (01) ==
PROVIDERS: Emergency Provider Nurse Practitioner
DX: J01.90 Acute sinusitis, unspecified (principal); Z87.891 Personal history of nicotine dependence
CPT/HCPCS: 99213; G0463

== ENCOUNTER 2022-10-05 12:04 | Emergency (ER) | payer BC, SELFPAY ==
[2022-10-05 13:10] VITALS: BP 156/70; PULSE 103; RESP 20; TEMP 37.6; O2SAT 99
--- NOTE | 2022-10-05 13:22 | ED.GENADULT ---
HPI - General Adult General Chief complaint: Upper Respiratory Infection Stated complaint: Left Eye Irritation, Running Nose, SOB Source: patient Mode of arrival: ambulatory Limitations: no limitations History of Present Illness HPI narrative: Patient presents for evaluation of sick symptoms. She will this morning from sleep with redness to the left eye. She noted some crusting as well. Her child recently had pinkeye. She denies any visual disturbance. She wears glasses but does not wear contacts. She states on Tuesday she developed a sore throat. She has noted postnasal drainage, green nasal drainage and sinus congestion. She had a fever 101? F two days ago. No chills, nausea, vomiting, diarrhea or cough. She has been taking sudafed without much improvement in her symptoms. She smokes a few cigarettes per day. She was recently treated for sinusits with augmentin and medrol dose pablo. No additional complaints or concerns. Related Data Allergies Allergy/AdvReac Type Severity Reaction Status Date / Time No Known Allergies Allergy Verified 10/05/22 12:47 Review of Systems Review of Systems: CONSTITUTIONAL: Reports fever 2 days ago, none since that time EYES: Denies visual changes, redness, or discharge. ENT: Reports sinus congestion, postnasal drainage, green nasal discharge and sore throat CARDIOVASCULAR: Denies chest pain, palpitations, or edema. RESPIRATORY: Denies cough or dyspnea. GASTROINTESTINAL: Denies abdominal pain, nausea, vomiting, or diarrhea. GENITOURINARY: Denies dysuria or hematuria. SKIN: Denies rash or itching. MUSCULOSKELETAL: Denies back pain, joint pain, or myalgia. NEUROLOGIC: Denies headache, numbness, dizziness, or weakness. PSYCHIATRIC: Denies anxiety or depression. [facility] Past Medical History Medical History Bipolar disorder (manic depression) No pertinent past medical history Patient denies significant medical history Surgical History Surgical History No pertinent past surgical history Family History Family History Mother Family history non-contributory Other No significant family history Social History Social History Smoking packs per day: 0.1 Smoking cigarettes per day: 2.0 Smoking status: Current every day smoker Tobacco type: cigarettes Smoking end date: 02/04/21 Alcohol intake: never Alcohol use details: rarely Substance use: former Last use: LAST 01/30/21 Living arrangements: with family 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 EYES: PERRLA and EOMI. left conjunctival injection with some yellow drainage noted on eyelashes ENT: Nares clear, no rhinorrhea or epistaxis. Mucous membranes moist. Bilateral tonsillar swelling with erythema. No exudate. Uvula is midlined. Bilateral TMs pearly grijalva nonbulging NECK: Supple. No adenopathy or masses. No carotid bruits or JVD CHEST: Clear to auscultation. No respiratory distress. No wheezes rales or rhonchi HEART: Regular rate and rhythm. No murmur heard. Normal peripheral pulses. ABDOMEN: Soft, nontender, nondistended, normal active bowel sounds. EXTREMITIES: Normal range of motion. No edema. SKIN: Warm, dry, no rash. NEURO: No focal deficits. Alert and oriented x3. PSYCH: Normal mood and affect. Course Course Emergency Course: This is a 22-year-old female who presented for evaluation of sick symptoms. She has evidence of bacterial conjunctivitis on exam. She has bilateral tons
== END 2022-10-05 13:54 | disposition home or self-care (01) ==
PROVIDERS: Emergency Provider Nurse Practitioner; PCP Physician Assistant
DX: J02.9 Acute pharyngitis, unspecified (principal); H10.32 Unspecified acute conjunctivitis, left eye; Z20.822 Contact with and (suspected) exposure to COVID-19; Z87.891 Personal history of nicotine dependence
CPT/HCPCS: 87081; 87426; 87804; 87880; 99213; C9803; G0463

== ENCOUNTER 2022-10-26 15:04 | Emergency (ER) | payer BC, SELFPAY ==
--- NOTE | ~2022-10-26 | XR_ITS ---
EXAMINATION: XR foot LT min 3V DATE: 10/26/2022 16:18 INDICATION: Left foot pain, initial encounter TECHNIQUE: Dorsoplantar, lateral, and 2 oblique views of the left foot were obtained. COMPARISON: None. FINDINGS: There is an acute transverse fracture in the distal neck of the fifth metatarsal in near an atomic alignment. Soft tissue swelling surrounds the fracture. No additional fracture is identified. There are changes of fusion of the first proximal and distal phalanges. IMPRESSION: 1. Acute transverse fracture in the distal neck of the fifth metatarsal. Reviewed, dictated and finalized at location L. 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
--- NOTE | ~2022-10-26 | XR_ITS ---
EXAMINATION: XR ankle LT min 3V DATE: 10/26/2022 16:16 INDICATION: Left ankle pain TECHNIQUE: Anteroposterior, lateral, mortise, and additional oblique view of the ankle were obtained. COMPARISON: None. FINDINGS: There is a nondisplaced fracture in the distal neck of the fifth metatarsal. Bone alignment of the ankle is normal. There is no acute fracture of the ankle. A plantar calcaneal enthesophyte is noted. IMPRESSION: 1. No acute osseous abnormality of the ankle. 2. Nondisplaced fracture in the distal neck of the fifth metatarsal. Reviewed, dictated and finalized at location L. ING ENGINEERING TECH
[2022-10-26 15:24] VITALS: BP 132/72; PULSE 82; RESP 16; TEMP 36.8; O2SAT 98
--- NOTE | 2022-10-26 17:44 | ED.LOWEXIN ---
HPI - Extremity Injury (Lower) General Chief Complaint: Extremity Injury, Lower Stated Complaint: left foot injury Time Seen by Provider: 10/26/22 17:18 Source: patient Mode of arrival: wheelchair Limitations: no limitations History of Present Illness HPI Narrative: This is a 22 year old female that presents to the ER after a fall about 2 weeks ago with left foot pain. Reports she tripped going down the last step. Reports since she has had pain with weight bearing and relieved with rest. Reports she has been taking Ibuprofen and Tylenol for pain. No other injuries. She did not hit her head or lose consciousnes. Denies decreased ROM or numbness. Related Data Allergies Allergy/AdvReac Type Severity Reaction Status Date / Time azithromycin Allergy Hives Verified 10/26/22 17:15 [From Zithromax Z-Sg] Review of Systems Review of Systems: CONSTITUTIONAL: Denies fever, chills, or sweats. EYES: Denies visual changes, redness, or discharge. ENT: Denies rhinorrhea, congestion, sore throat, or otalgia. CARDIOVASCULAR: Denies chest pain, palpitations, or edema. RESPIRATORY: Denies cough or dyspnea. GASTROINTESTINAL: Denies abdominal pain, nausea, vomiting, or diarrhea. GENITOURINARY: Denies dysuria or hematuria. SKIN: Denies rash or itching. MUSCULOSKELETAL: Denies back pain, joint pain, or myalgia. NEUROLOGIC: Denies headache, numbness, or weakness. PSYCHIATRIC: Denies anxiety or depression. All systems reviewed & are unremarkable except as noted in HPI and below PMFSH Past Medical History Medical History (Updated 10/26/22 @ 18:12 by Sandra Bentley PA-C) No active medical problems Surgical History Surgical History No pertinent past surgical history Family History Family History Mother Family history non-contributory Other No significant family history Social History Social History (Updated 10/26/22 @ 17:46 by Sandra Bentley PA-C) Smoking status: Current every day smoker Tobacco type: cigarettes and e-cigarettes/vaping Alcohol intake: never Alcohol use details: rarely Substance use: former Last use: LAST 01/30/21 Additional occupation/education comments: [employer] Gender identity (if verbalized by the patient): Female Sexual Orientation (if Verbalized by the Patient): Straight or Heterosexual Spiritual care concerns: No Exam Narrative: GENERAL: Well-appearing, well-nourished, and in no acute distress. HEAD: Normocephalic, atraumatic. EYES: EOMI. EXTREMITIES: Normal range of motion. No edema. Tender to palpation over the left fifth metatarsal bone. Normal DP pulse. Normal sensation SKIN: Warm, dry, no rash. NEURO: No focal deficits. Alert and oriented x3. PSYCH: Normal mood and affect Course Vital Signs Vital signs: Vital Signs Temperature 98.3 F 10/26/22 15:24 Pulse Rate 82 10/26/22 15:24 Respiratory Rate 16 10/26/22 15:24 Blood Pressure 132/72 10/26/22 15:24 Pulse Oximetry 98 10/26/22 15:24 Oxygen Delivery Room Air 10/26/22 15:24 Temperature 98.3 F 10/26/22 15:24 Pulse Rate 82 10/26/22 15:24 Respiratory Rate 16 10/26/22 15:24 Blood Pressure 132/72 10/26/22 15:24 Pulse Oximetry 98 10/26/22 15:24 Oxygen Delivery Room Air 10/26/22 15:24 Procedures Orthopedic Splinting/Casting Injury #1: Splinting/Casting Date: 10/26/22 Splinting/Casting Time: 18:09 Side: left Lower Extremity Injury Location: lower leg Lower Extremity Immobilizer: posterior splint Splint: customized in ED OCL: posterior Pre-Procedure Neuro Vascular Exam: normal Post-Procedure Neuro Vascular Exam: normal Other Orthopedic Equipment: crutches MDM - Extremity Injury (Lower) MDM Narrative Medical decision making narrative: Patient presents to the emergency departmen
--- NOTE | 2022-10-26 18:37 | PC.NURSE ---
At 18:35 gave crutches and training on how to use the crutches. Pt walked around with them and practicing not putting any weight on foot.
[2022-10-26 18:59] VITALS: BP 132/74; PULSE 66; RESP 15; O2SAT 99
== END 2022-10-26 19:00 | disposition home or self-care (01) ==
LOC: ANHED 18:46
PROVIDERS: Emergency Provider Physician Assistant; PCP Physician Assistant
DX: S92.355A Nondisplaced fracture of fifth metatarsal bone, left foot, initial encounter for closed fracture (principal); F17.210 Nicotine dependence, cigarettes, uncomplicated; W10.9XXA Fall (on) (from) unspecified stairs and steps, initial encounter
CPT/HCPCS: 29515; 73610; 73630; 99284

== ENCOUNTER 2022-12-28 21:31 | Emergency (ER) | payer BC, SELFPAY ==
[2022-12-28 21:35] VITALS: BP 124/71; PULSE 79; RESP 13; TEMP 36.4; O2SAT 98
--- NOTE | 2022-12-28 22:01 | PC.NURSE ---
Patient left ER before being seen by provider stating I'll just come back tomorrow . Patient encouraged to stay but she declined.
== END 2022-12-28 22:01 | disposition left against medical advice (07) ==
LOC: ANHED 22:04
PROVIDERS: PCP Physician Assistant
DX: R05.9 Cough, unspecified (principal)
CPT/HCPCS: 99199

== ENCOUNTER 2022-12-29 15:32 | Emergency (ER) | payer BC, SELFPAY ==
[2022-12-29 15:41] VITALS: BP 132/69; PULSE 82; RESP 16; TEMP 36.2; O2SAT 98
--- NOTE | 2022-12-29 16:00 | ED.URI ---
HPI - URI/Sore Throat General Chief Complaint: Upper Respiratory Infection Stated Complaint: Cough Time Seen by Provider: 12/29/22 15:50 Source: patient Mode of arrival: ambulatory Limitations: no limitations History of Present Illness HPI Narrative: Gladis is a 22-year-old female patient presenting to the clinic today with complaints of cough x3 weeks. She reports she has had some nasal drainage going to the back of her throat and a slight itchy irritated throat. She denies any fever or chills. She denies any known exposure to anybody with COVID, flu, or strep MD elicited complaint: sore throat and nasal congestion Related Data Allergies Allergy/AdvReac Type Severity Reaction Status Date / Time azithromycin Allergy Hives Verified 12/29/22 15:41 [From Zithromax Z-Sg] Review of Systems Review of Systems: Pertinent positives per HPI. Patient denies any fever, chills, rash, headache, visual changes, dizziness,shortness of breath, chest pain, palpitations, nausea, vomiting, diarrhea, constipation, abdominal pain, or any urinary issues. PMFSH Past Medical History Medical History Acute suppur left otitis media w/o spontan rupture tympanic membrane Contraceptive management Decreased movement Encounter for induction of labor IUGR (intrauterine growth restriction) Left foot pain No active medical problems Normal vaginal delivery of first Sexually transmissible disease Surgical History Surgical History Hx of toe surgery 2011 bilateral great toe pinning No pertinent past surgical history Family History Family History Mother Family history non-contributory Other No significant family history Social History Social History Smoking status: Current every day smoker Tobacco type: cigarettes and e-cigarettes/vaping Alcohol intake: never Alcohol use details: rarely Substance use: former Last use: LAST 01/30/21 Living arrangements: with family Occupation/Education: occupation 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 There is no relevant family history pertinent to the patient complaint. Exam Narrative: General: Well-developed, well nourished, in no apparent distress Head: Normocephalic, atraumatic Eyes: Pupils equally round and reactive to light bilaterally, EOM intact, sclera and conjunctive clear, no discharge, lids normal Ears: TMs intact and clear, ear canals clear, no drainage, grossly hearing normal. Nose: Nares patent, no discharge, no inflammation, no sinus tenderness. Mouth: Oral pharynx without lesions or masses, good dentition, MMM. Oropharynx red with bilateral tonsillar enlargement Neck: Supple, trachea midline, mild enlargement of anterior cervical nodes, no thyroid masses or goiter palpable. Cardio: Regular rate and rhythm, s1 and s2 normal, no murmur appreciated. Resp: Clear to auscultation bilaterally, no rhonchi, rales, wheezing or rubs Course Course Emergency Course: Portions of this record may have been created with voice recognition software. Level of Care: Express Care Visit Vital Signs Vital signs: Vital Signs Temperature 36.2 C L 12/29/22 15:41 Pulse Rate 82 12/29/22 15:41 Respiratory Rate 16 12/29/22 15:41 Blood Pressure 132/69 12/29/22 15:41 Pulse Oximetry 98 12/29/22 15:41 Oxygen Delivery Room Air 12/29/22 15:41 Temperature 36.2 C L 12/29/22 15:41 Pulse Rate 82 12/29/22
== END 2022-12-29 16:18 | disposition home or self-care (01) ==
PROVIDERS: Emergency Provider Nurse Practitioner Family; PCP Physician Assistant
DX: J30.9 Allergic rhinitis, unspecified (principal); F17.210 Nicotine dependence, cigarettes, uncomplicated
CPT/HCPCS: 87081; 87880; 99213; G0463

== ENCOUNTER 2023-05-08 20:44 | Emergency (ER) | payer BC, SELFPAY ==
--- NOTE | ~2023-05-08 | XR_ITS ---
EXAMINATION: XR chest 2V Exam Date/Time: 05/08/2023 21:10 CDT HISTORY: cough fever Comparison: None. RESULT: Lines, tubes, and devices: None. Lungs and pleura: Clear. Cardiomediastinal silhouette: Normal. Other: No acute osseous or upper abdominal finding. IMPRESSION: No acute cardiopulmonary process. Reviewed, dictated and finalized at location K.
[2023-05-08 20:48] VITALS: BP 131/75; PULSE 91; RESP 18; TEMP 36.6; O2SAT 98
--- NOTE | 2023-05-08 21:15 | PC.NURSE ---
Pt to XR at this time.
[2023-05-08] MEDS: SODIUM CHLORIDE 0.9% IV 1,000 ML 999 ML IV CONT (21:30)
[2023-05-08] MEDS: KETOROLAC 30 MG/ML VIAL (*BKC) IV PUSH (21:30)
[2023-05-08] MEDS: PROCHLORPERAZINE EDISYLATE 10 MG/2 ML VIAL IV PUSH (21:32)
[2023-05-08] MEDS: diphenhydrAMINE HCl INJ 50 MG/ML VIAL 25 MG IV PUSH (21:33)
[2023-05-08 21:37] LABS: Basophils Percent Auto 0.3 % (0.2-1.2); Eosinophils Absolute Auto 0.1 K/mm3 (0-0.3); Eosinophils Percent Auto 1.5 % (0-4.4); Hematocrit 38.9 % (37.0-47.0); Hemoglobin 13.5 g/dL (12.0-15.0); Immature Granulocyte Absolute 0.03 K/mm3 (0.00-0.031); Immature Granulocyte Percent A 0.3 % (0-0.5); Lymphocytes Absolute Auto 2.87 K/mm3 (0.9-3.2); Lymphocytes Percent Auto 30.9 % (18.3-44.2); Mean Corpuscular HGB Conc 34.7 g/dl (32-36); Mean Corpuscular Hemoglobin 30.5 pg (26-34); Mean Corpuscular Volume 87.8 fl (80-100); Mean Platelet Volume 9.8 fl (7.4-10.4); Monocytes Absolute Auto 1.1 K/mm3 (0.1-0.6); Monocytes Percent Auto 11.9 % (2.6-8.5); Neutrophils Absolute Auto 5.1 K/mm3 (1.3-6.7); Neutrophils Percent Auto 55.1 % (45.5-73.1); Platelet Count Result 213 k/mm3 (150-375); Red Blood Count 4.43 M/mm3 (4.2-5.4); Red Cell Distribution Width 11.6 % (11.5-14.5); White Blood Count 9.3 K/mm3 (4.5-10.0)
[2023-05-08 21:43] VITALS: BP 120/71; PULSE 69; RESP 20; O2SAT 99
[2023-05-08 21:44] LABS: Add Urine Microscopic? YES; Appearance Urine Cloudy (Clear); Bacteria Urine None Seen /hpf; Bilirubin Urine Negative (Negative); Blood Urine Negative (Negative); Color Urine Yellow (Yellow); Glucose Urine UA Negative (Negative); Ketones Urine Negative (Negative); Leukocyte Esterase Ur Negative LEU/UL (Negative); Nitrate Urine Negative (Negative); Non Pathogenic Casts 0-2; Protein Urine Negative (Negative); RBC Urine 0-2 /hpf (0-2); Specific Grav Ur 1.025 (1.001-1.035); Squamous Epithelial Cell Urine None seen /hpf (Few); WBC Urine 0-5 /hpf
[2023-05-08 21:46] LABS: Alanine Aminotransferase 17 U/L (6-35); Alkaline Phosphatase 82 U/L (38-126); Anion Gap 4 mmol/L (8-16); Aspartate Amino Transferase 21 U/L (14-36); Bilirubin,Total 0.5 mg/dL (0.2-1.3); Blood Urea Nitrogen 14 mg/dL (7-17); Calcium 9.3 mg/dL (8.4-10.2); Carbon Dioxide 26 mmol/L (22-30); Chloride 104 mmol/L (98-107); Estimated CRCL calculation 121 ml/min; Estimated Glomerular Filt Rate > 60; Glucose 96 mg/dL (65-110); Sodium 134 mmol/L (137-145)
[2023-05-08 22:02] LABS: Strep Group A RT-PCR NOT DETECTED (Negative)
[2023-05-08 22:13] LABS: Influenza A QL RT-PCR Negative (Negative); Influenza B QL RT-PCR Negative (Negative); SARS-CoV-2 RNA PCR Negative (Negative)
--- NOTE | 2023-05-08 22:22 | ED.GENADULT ---
HPI - General Adult General Chief complaint: Unspecified Stated complaint: headache/fever/bodyaches Time Seen by Provider: 05/08/23 20:55 History of Present Illness HPI narrative: Patient 23-year-old female who presents emergency department with chief complaint of acute headache and body aches. Patient reports that for several days she has had a low-grade headache which has been taking Tylenol and ibuprofen for the patient reports the headache has been persistent and that she is also had some pain in her back Related Data Allergies Allergy/AdvReac Type Severity Reaction Status Date / Time azithromycin Allergy Hives Verified 05/08/23 21:12 [From Zithromax Z-Sg] Review of Systems Review of Systems: A 10 system review of systems was completed on the patient and is negative except for what is stated in the HPI. Nursing and ancillary documentation was reviewed. PMFSH Past Medical History Medical History Acute suppur left otitis media w/o spontan rupture tympanic membrane Contraceptive management Decreased movement Encounter for induction of labor IUGR (intrauterine growth restriction) Left foot pain No active medical problems Normal vaginal delivery of first Sexually transmissible disease Surgical History Surgical History Hx of toe surgery 2011 bilateral great toe pinning No pertinent past surgical history Family History Family History Mother Family history non-contributory Other No significant family history Social History Social History Smoking status: Current every day smoker Tobacco type: cigarettes and e-cigarettes/vaping Alcohol intake: never Alcohol use details: rarely Substance use: former Last use: LAST 01/30/21 Living arrangements: with family Occupation/Education: occupation 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 HEAD: Normocephalic, atraumatic. EYES: PERRLA and EOMI. ENT: Nares clear, no rhinorrhea or epistaxis. Mucous membranes moist. NECK: Supple. No nuchal rigidity CHEST: Clear to auscultation. No respiratory distress. HEART: Regular rate and rhythm. No murmur heard. Normal peripheral pulses. ABDOMEN: Soft, nontender, nondistended, normal active bowel sounds. EXTREMITIES: Normal range of motion. No edema. SKIN: Warm, dry, no rash. NEURO: No focal deficits. Alert and oriented x3. No photophobia PSYCH: Normal mood and affect. Course Vital Signs Vital signs: Vital Signs Temperature 36.6 C 05/08/23 20:48 Pulse Rate 91 05/08/23 20:48 Respiratory Rate 18 05/08/23 20:48 Blood Pressure 131/75 05/08/23 20:48 Pulse Oximetry 98 05/08/23 20:48 Oxygen Delivery Room Air 05/08/23 20:48 Temperature 36.6 C 05/08/23 20:48 Pulse Rate 69 05/08/23 21:43 Respiratory Rate 20 05/08/23 21:43 Blood Pressure 120/71 05/08/23 21:43 Pulse Oximetry 99 05/08/23 21:43 Oxygen Delivery Room Air 05/08/23 20:48 Medical Decision Making [facility] Narrative Medical decision making narrative: Differential diagnosis includes viral syndrome, migraine headache, UTI, COVID-19, influenza, pneumonia Laboratory studies were obtained on the patient which showed a normal CBC normal electrolytes urinalysis showed no evidence of UTI COVID flu and strep were negative chest x-ray showed no focal infiltrate Vital Signs Vital Signs: Vital Signs Temperature 36.6 C 05/08/23 20:48 Pulse Rate 91 05/08/23
[2023-05-08 22:39] VITALS: BP 112/76; PULSE 71; RESP 16; O2SAT 99
== END 2023-05-08 22:40 | disposition home or self-care (01) ==
PROVIDERS: Emergency Provider Emergency Medicine; PCP Physician Assistant
DX: B34.9 Viral infection, unspecified (principal); R51.9 Headache, unspecified; F17.210 Nicotine dependence, cigarettes, uncomplicated; F17.290 Nicotine dependence, other tobacco product, uncomplicated; Z86.16 Personal history of COVID-19
CPT/HCPCS: 36415; 71046; 80053; 81001; 81025; 85025; 87636; 87651; 96361; 96374; 96375; 99284; J0780; J1200; J1885; J7030

== ENCOUNTER 2024-02-02 09:19 | Emergency (ER) | payer BC, SELFPAY ==
[2024-02-02] VITALS (7 sets, daily range): BP systolic 112–152; BP diastolic 70–78; PULSE 74–86; RESP 16; TEMP 36.5–36.7; O2SAT 95–100
--- NOTE | ~2024-02-02 | US_ITS ---
US OB <=14 wk fetus w TV DATE: 02/02/2024 11:10 INDICATION: Vaginal bleeding, cramping TECHNIQUE: Real-time imaging via transabdominal and transvaginal approaches COMPARISON: None FINDINGS: The uterus measures approximately 9.8 cm vertical dimension. The central endometrial echo complex measures up to 1.6 cm anteroposterior dimension. Apparent intrau terine gestational sac is detected. Uterine cervical nabothian cysts. Right ovary measures 2.5 x 1.3 x 1.3 cm and appears normal. Left ovary measures 3.1 x 2.2 x 2.2 cm, with a 2.1 cm cyst. There is vascularity to both ovaries. No free pelvic fluid collection. IMPRESSION: No intrauterine gestational sac is detected Reviewed, dictated and finalized at Location A. Reviewed, dictated and finalized at location B.
[2024-02-02 09:46] LABS: Basophils Percent Auto 0.4 % (0.2-1.2); Eosinophils Absolute Auto 0.3 K/mm3 (0-0.3); Eosinophils Percent Auto 3.5 % (0-4.4); Hemoglobin 13.4 g/dL (12.0-15.0); Immature Granulocyte Absolute 0.06 K/mm3 (0.00-0.031); Immature Granulocyte Percent A 0.7 % (0-0.5); Lymphocytes Absolute Auto 2.32 K/mm3 (0.9-3.2); Lymphocytes Percent Auto 27.1 % (18.3-44.2); Mean Corpuscular HGB Conc 34.4 g/dl (32-36); Mean Corpuscular Hemoglobin 30.4 pg (26-34); Mean Corpuscular Volume 88.4 fl (80-100); Mean Platelet Volume 9.9 fl (7.4-10.4); Monocytes Absolute Auto 0.9 K/mm3 (0.1-0.6); Monocytes Percent Auto 10.3 % (2.6-8.5); Platelet Count Result 258 k/mm3 (150-375); Red Blood Count 4.41 M/mm3 (4.2-5.4); Red Cell Distribution Width 12.2 % (11.5-14.5); White Blood Count 8.6 K/mm3 (4.5-10.0)
[2024-02-02 09:58] LABS: Alanine Aminotransferase 16 U/L (6-35); Albumin Level 4.2 g/dL (3.5-5.1); Alkaline Phosphatase 92 U/L (38-126); Anion Gap 7 mmol/L (4-12); Aspartate Amino Transferase 25 U/L (14-36); Bilirubin,Total 0.4 mg/dL (0.2-1.3); Blood Urea Nitrogen 13 mg/dL (7-17); Calcium 9.5 mg/dL (8.4-10.2); Carbon Dioxide 18 mmol/L (22-30); Chloride 112 mmol/L (98-107); Estimated CRCL calculation 153 ml/min; Estimated Glomerular Filt Rate > 60; Glucose 91 mg/dL (65-110); Potassium 3.9 mmol/L (3.4-5.0); Sodium 137 mmol/L (137-145)
--- NOTE | 2024-02-02 09:58 | ED.PREGNANCY ---
HPI - General Chief complaint: Vaginal Bleeding Stated complaint: vag bleed- preg Time Seen by Provider: 02/02/24 09:22 Source: patient Mode of arrival: ambulatory Limitations: no limitations History of Present Illness HPI Narrative: Patient is a 23-year-old female who presents the ED with report of vaginal bleeding. Patient reports her last normal menstrual cycle was January 02. She has since had a positive test. This makes her . She developed lower abdominal cramping with some vaginal spotting yesterday. Spotting became heavier today. She contacted her OBGYN, Dr. Chung, and was referred to the ED for further evaluation. Patient reports intermittent nausea, denies vomiting. Denies fevers. Denies dysuria or hematuria. Patient's blood type is O negative. Related Data Allergies Allergy/AdvReac Type Severity Reaction Status Date / Time azithromycin Allergy Hives Verified 05/08/23 21:12 [From Zithromax Z-Sg] Review of Systems Review of Systems: CONSTITUTIONAL: Denies fever, chills, or sweats. GASTROINTESTINAL: See HPI. GENITOURINARY: See HPI. MUSCULOSKELETAL: Denies back pain. NEUROLOGIC: Denies headache, dizziness, numbness, or weakness. All systems reviewed & are unremarkable except as noted in HPI and below PMFSH Past Medical History Medical History Acute suppur left otitis media w/o spontan rupture tympanic membrane Contraceptive management Decreased movement Encounter for induction of labor IUGR (intrauterine growth restriction) Left foot pain No active medical problems Normal vaginal delivery of first Sexually transmissible disease Surgical History Surgical History Hx of toe surgery 2011 bilateral great toe pinning No pertinent past surgical history Family History Family History Mother Family history non-contributory Other No significant family history Social History Social History Smoking status: Current every day smoker Tobacco type: cigarettes and e-cigarettes/vaping Alcohol intake: never Alcohol use details: rarely Substance use: former Last use: LAST 4/2/21 Living arrangements: with family Occupation/Education: occupation 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 HEAD: Normocephalic, atraumatic. RESPIRATORY: Airway patent, respirations nonlabored. Clear to auscultation bilaterally, no rales, rhonchi, wheezing. CARDIOVASCULAR: Regular rate and rhythm ABDOMINAL: Soft, mild tenderness in suprapubic region and right lower quadrant, nondistended. Normoactive BS. PELVIC: Normal external genitalia. Trace amount of blood in vaginal vault, mild amount of physiologic discharge. Cervix appears normal with nabothian cyst present. Os appears closed. No significant CMT. No evidence of hemorrhage or pooling of fluid. MUSCULOSKELETAL: Moves all extremities. No gross deformities. SKIN: Warm, dry, normal color. NEURO: A&O X3. Speech clear. PSYCHIATRIC: Appropriate mood and affect. Normal interaction. Course Vital Signs Vital signs: Vital Signs Temperature 97.8 F 02/02/24 09:27 Pulse Rate 74 02/02/24 09:27 Respiratory Rate 16 02/02/24 09:27 Blood Pressure 118/75 02/02/24 09:27 Oxygen Delivery Room Air 02/02/24 09:27 Temperature 97.8 F 02/02/24 09:27 Pulse Rate 74 02/02/24 09:27 Respiratory Rate 16 02/02/24 09:27 Blood Pressure 118/75 02/02/24 09:
[2024-02-02 09:59] LABS: Prothrombin Time 13.2 Seconds (11.1-14.7)
[2024-02-02 10:00] LABS: Partial Thromboplastin Time 27.7 Seconds (22.3-36.8)
[2024-02-02] MEDS: SODIUM CHLORIDE 0.9% IV 1,000 ML 999 ML IV CONT (10:18)
[2024-02-02 11:06] LABS: Appearance Urine Clear (Clear); Bilirubin Urine Negative (Negative); Blood Urine Negative (Negative); Color Urine Yellow (Yellow); Glucose Urine UA Negative (Negative); Ketones Urine Negative (Negative); Leukocyte Esterase Ur Trace LEU/UL (Negative); Nitrate Urine Negative (Negative); Protein Urine Negative (Negative); Specific Grav Ur 1.024 (1.001-1.035); Urobilinogen Urine 0.2 mg/dL (<2.0); pH Urine 5.5 (5.0-9.0)
[2024-02-02 11:22] LABS: Add Urine Microscopic? YES
[2024-02-02 11:24] LABS: Squamous Epithelial Cell Urine Occasional /hpf (Few); WBC Urine 0-5 /hpf (0-3)
[2024-02-02] MEDS: RHO(D) IMMUNE GLOBULIN 300 MCG/2 ML SYRINGE IM (11:31)
== END 2024-02-02 12:55 | disposition home or self-care (01) ==
PROVIDERS: Emergency Provider Physician Assistant; PCP Physician Assistant
DX: O20.0 Threatened abortion (principal); O99.331 Smoking (tobacco) complicating pregnancy, first trimester; F17.210 Nicotine dependence, cigarettes, uncomplicated; F17.290 Nicotine dependence, other tobacco product, uncomplicated; Z3A.01 Less than 8 weeks gestation of pregnancy
CPT/HCPCS: 36415; 76801; 76817; 80053; 81001; 84702; 85025; 85461; 85610; 85730; 86850; 86900; 86901; 90384; 96360; 96372; 99284; J2790; J7030

== ENCOUNTER 2024-02-04 07:23 | Outpatient (CLI) | payer BC, SELFPAY | END 2024-02-04 07:24 | disposition home or self-care (01) | LOC: ANHLAB 07:24 | PROVIDERS: PCP Physician Assistant; Visit Provider Physician Assistant | DX: O20.0 Threatened abortion (principal); Z3A.00 Weeks of gestation of pregnancy not specified | CPT/HCPCS: 36415; 84702 ==

== ENCOUNTER 2024-02-09 14:35 | Outpatient (CLI) | payer BC, SELFPAY ==
--- NOTE | ~2024-02-09 | US_ITS ---
EXAMINATION: US OB <=14 wk fetus w TV DATE: 02/09/2024 15:03 INDICATION: Threatened . Gestational dating. Pelvic cramping. TECHNIQUE: Real-time transabdominal and transvaginal obstetric ultrasound. FINDINGS: Ultrasound dated 02/02/2024 There is an intrauterine gestational sac with yolk sac. No pole identified. Gestational sac lucrecia surements correspond to 5 week 2 day gestation (parent EDV 10/09/2024). Ovaries not visualized. No fr ee fluid in the pelvis. IMPRESSION: 1. Intrauterine gestational sac containing a yolk sac corresponding to 5 week 2 day gestation. No fet al pole identified, likely due to early gestational age. Reviewed, dictated and finalized at location A. IMPRESSION: 1. Intrauterine gestational sac containing a yolk sac corresponding to 5 week 2 day gestation. No pole identified, likely due to early gestational age.
== END 2024-02-09 14:36 ==
PROVIDERS: PCP Student in an Organized Health Care Education/Training Program; Visit Provider Student in an Organized Health Care Education/Training Program
DX: O20.0 Threatened abortion (principal); Z3A.01 Less than 8 weeks gestation of pregnancy
CPT/HCPCS: 76801; 76817

== ENCOUNTER 2024-02-15 22:33 | Emergency (ER) | payer BC, SELFPAY ==
[2024-02-15 22:34] VITALS: BP 148/82; PULSE 66; RESP 15; TEMP 36.3; O2SAT 100
[2024-02-15] MEDS: ACETAMINOPHEN 500 MG TABLET 1000 MG PO (23:03)
[2024-02-15] MEDS: METOCLOPRAMIDE HCL INJ 10 MG/2 ML VIAL IM (23:04)
[2024-02-15 23:10] VITALS: BP 146/79; PULSE 80; RESP 16; O2SAT 98
[2024-02-15 23:13] LABS: Appearance Urine Clear (Clear); Bilirubin Urine Negative (Negative); Blood Urine Negative (Negative); Color Urine Yellow (Yellow); Glucose Urine UA Negative (Negative); Ketones Urine Negative (Negative); Leukocyte Esterase Ur Negative LEU/UL (Negative); Nitrate Urine Negative (Negative); Protein Urine Negative (Negative); Specific Grav Ur 1.013 (1.001-1.035)
--- NOTE | 2024-02-15 23:19 | ED.ABDPAIN ---
HPI - Abdominal Pain General Chief Complaint: Abdominal Pain Stated Complaint: abd pain/cramping 6 weeks preg Time Seen by Provider: 02/15/24 22:44 History of Present Illness HPI narrative: Patient here with lower abdominal pain/cramping for past 12 h; she is 6wk preg with confirmed IUP. Hasn't taken any pain meds yet. Also reporting some nausea this AM. Related Data Allergies Allergy/AdvReac Type Severity Reaction Status Date / Time azithromycin Allergy Hives Verified 02/15/24 22:38 [From Zithromax Z-Sg] Review of Systems Review of Systems: CONST: No fever. HEENT: No sore throat C/V: No chest pain RESP: No cough GI: Reports abdominal pain, nausea : No dysuria. M/S: No joint pain. SKIN: No rash. NEURO: [No headache or focal numbness or weakness] PSYCH: [No depression] PMF Past Medical History Medical History Acute suppur left otitis media w/o spontan rupture tympanic membrane Contraceptive management Decreased movement Encounter for induction of labor IUGR (intrauterine growth restriction) Left foot pain No active medical problems Normal vaginal delivery of first Sexually transmissible disease Surgical History Surgical History Hx of toe surgery 2011 bilateral great toe pinning No pertinent past surgical history Family History Family History Mother Family history non-contributory Other No significant family history Social History Social History Smoking status: Current every day smoker Tobacco type: cigarettes and e-cigarettes/vaping Alcohol intake: never Alcohol use details: rarely Substance use: former Last use: LAST 01/30/21 Living arrangements: with family Occupation/Education: occupation 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 EYES: EOMI, conjunctiva normal ENT: Hearing grossly intact LUNGS: Nonlabored breathing. HEART: [Regular rate and rhythm] ABD: [Soft], mildly [tender to palpation] suprapubic abdomen. No RLQ tenderness. No RUQ tenderness. EXT: Normal range of motion SKIN: [No rashes or lesions.] NEURO: [Alert and oriented x 3. No gross focal sensory or strength deficits.] PSYCH: Normal affect Course Vital Signs Vital signs: Vital Signs Temperature 97.4 F L 02/15/24 22:34 Pulse Rate 66 02/15/24 22:34 Respiratory Rate 15 02/15/24 22:34 Blood Pressure 148/82 H 02/15/24 22:34 Pulse Oximetry 100 02/15/24 22:34 Oxygen Delivery Room Air 02/15/24 22:34 Temperature 97.4 F L 02/15/24 22:34 Pulse Rate 61 02/15/24 23:48 Respiratory Rate 12 02/15/24 23:48 Blood Pressure 129/80 02/15/24 23:48 Pulse Oximetry 98 02/15/24 23:48 Oxygen Delivery Room Air 02/15/24 22:34 MDM - Abdominal Pain MDM Narrative Medical decision making narrative: 24-year-old female 6 weeks presenting with suprapubic pain and nausea. Well-appearing here, abd minimally tender suprapubic abd, no VB or discharge. No RLQ pain so less likely appy. Given APAP and reglan here for symptomatic treatment, I did POCUS saw IUP with nl HR, good amount of bowel gas. Will check UA for UTI. UA is negative, on re-evaluation patient states she is feeling much better, pain is resolved, no longer nauseous, I did let her know she needs to follow-up with her OBGYN and she can return for any f
[2024-02-15 23:47] LABS: Add Urine Microscopic? NO
[2024-02-15 23:48] VITALS: BP 129/80; PULSE 61; RESP 12; O2SAT 98
== END 2024-02-16 00:09 | disposition home or self-care (01) ==
PROVIDERS: Emergency Provider Emergency Medicine; PCP Physician Assistant
DX: O26.891 Other specified pregnancy related conditions, first trimester (principal); R10.30 Lower abdominal pain, unspecified; O21.9 Vomiting of pregnancy, unspecified; O99.331 Smoking (tobacco) complicating pregnancy, first trimester; F17.210 Nicotine dependence, cigarettes, uncomplicated; F17.290 Nicotine dependence, other tobacco product, uncomplicated; Z3A.01 Less than 8 weeks gestation of pregnancy
CPT/HCPCS: 81003; 96372; 99283; A9270; J2765

== ENCOUNTER 2024-02-18 17:31 | Emergency (ER) | payer OTHER, BC, SELFPAY ==
[2024-02-18 18:00] VITALS: BP 129/88; PULSE 77; RESP 18; O2SAT 100
--- NOTE | 2024-02-18 18:10 | ED.FALL ---
HPI - Fall General Chief Complaint: Fall Stated Complaint: concussion? Time Seen by Provider: 02/18/24 17:42 History of Present Illness HPI Narrative: This is a 24-year-old female, , at 6 weeks 2 days, presents emergency department after a fall at work. 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 She denies loss of consciousness. She complains dull and intermittently sharp pain rated 5/10 in the low back and mid back. She complains of some nausea but denies weakness, numbness, change/loss of vision or vomiting. She has no other complaints at this time. Related Data Allergies Allergy/AdvReac Type Severity Reaction Status Date / Time azithromycin Allergy Hives Verified 02/15/24 22:38 [From Zithromax Z-Sg] Review of Systems Review of Systems: CONSTITUTIONAL: Denies fever, chills, or sweats. EYES: Denies visual changes, redness, or discharge. ENT: Denies rhinorrhea, congestion, sore throat, or otalgia. CARDIOVASCULAR: Denies chest pain, palpitations, or edema. RESPIRATORY: Denies cough or dyspnea. GASTROINTESTINAL: Denies abdominal pain, nausea, vomiting, or diarrhea. GENITOURINARY: LMP January 03, 2024. Denies dysuria or hematuria. SKIN: Denies rash or itching. MUSCULOSKELETAL: Denies back pain, joint pain, or myalgia. NEUROLOGIC: Denies headache, numbness, dizziness, or weakness. PSYCHIATRIC: Denies anxiety or depression. [facility] Past Medical History Medical History Acute suppur left otitis media w/o spontan rupture tympanic membrane Contraceptive management Decreased movement Encounter for induction of labor IUGR (intrauterine growth restriction) Left foot pain No active medical problems Normal vaginal delivery of first Sexually transmissible disease Surgical History Surgical History Hx of toe surgery 2011 bilateral great toe pinning No pertinent past surgical history Family History Family History Mother Family history non-contributory Other No significant family history Social History Social History Smoking status: Current every day smoker Tobacco type: cigarettes and e-cigarettes/vaping Alcohol intake: never Alcohol use details: rarely Substance use: former Last use: LAST 01/30/21 Living arrangements: with family Occupation/Education: occupation 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 HEAD: Normocephalic, atraumatic. EYES: PERRLA and EOMI. ENT: Nares clear, no rhinorrhea or epistaxis. Mucous membranes moist. Oropharynx without tonsillar hypertrophy exudate or other lesions. NECK: Supple. No midline spine tenderness to palpation, step-off or crepitus CHEST: Clear to auscultation. No respiratory distress. No wheezes rales or rhonchi HEART: Regular rate and rhythm. No murmur heard. Normal peripheral pulses. ABDOMEN: Soft, nontender, nondistended, normal active bowel sounds. BACK: Paraspinal tenderness to palpation at approximately T for to T5 as well as right paraspinal tenderness to palpation at L1 and L3 without midline spine tenderness, step-off or crepitus EXTREMITIES: Normal range of motion. No edema. SKIN: Warm, dry, no rash. NEURO: Alert and oriented x3. No focal deficit. Moving all 4 limbs spontaneously PSYCH: Normal mood and affect. Course Course Emergency Course: 18:10 - Bedside ultrasound performed by me demonstrates a single intrauterine without free intra-abdominal fluid. I am unable to find obvious cardiac activity. The patient's exam is not concerning for focal neural deficit. I suspect she has suffered a concussion and contusion of the back. Will discharge with lidocaine patches and recommendation for Tylenol. I advised the patient follow-up with her primary care doctor. I discussed the findings and recommendations with the patient. Discussed return and emergency precautions including signs/symptoms of intracranial hemorrhage. The patient voiced understanding and agreement with the plan. All questions answered to her satisfaction. Vital Signs Vital signs: Vital Signs Pulse Rate 77 02/18/24 18:00 Respiratory Rate 18 02/18/24 18:00 Blood Pressure 129/88 02/18/24 18:00 Pulse Oximetry 100 02/18/24 18:00 Pulse Rate 77 02/18/24 18:00 Respiratory Rate 18 02/18/24 18:00 Blood Pressure 129/88 02/18/24 18:00 Pulse Oximetry 100 02/18/24 18:00 MDM - Fall MDM Narrative Medical decision making narrative: Plan: Pain control, bedside ultrasound, reassess Differential Diagnosis Differential diagnosis: Likely concussion without loss of consciousness and other (Contusion of spine, other) Discharge Plan Discharge Clinical Impression: Contusion of thoracic spine Lumbar contusion Qualifiers: Encounter type: initial encounter Qualified Code(s): S30.0XXA - Contusion of lower back and pelvis, initial encounter Concussion Qualifiers: Encounter type: initial encounter Loss of consciousness presence/duration: without LOC Qualified Code(s): S06.0X0A - Concussion without loss of consciousness, initial encounter Patient Disposition: Home, Self-Care Condition: Stable Instructions: Antibiotic Form, Concussion (ED) Additional Instructions: You were seen in the emergency department. I suspect to have a concussion and bruising. I recommend Tylenol, lidocaine patches and nausea medications as needed. I recommend following up with your primary care doctor. If you develop weakness/numbness, change/loss of vision/hearing, persistent vomiting, or if you have other emergent concerns for life, limb, or eyesight, return to the emergency department. Patient Language: [place] Prescriptions: New lidocaine 5 % adhesive patch,medicated 1 patch topical DAILY Qty: 30 0RF Rx Instructions: leave on most painful area for up to 12 hrs No Action prednisone 20 mg tablet 40 mg PO DAILY 5 Days Qty: 10 0RF doxylamine-pyridoxine (vit B6) [Diclegis] 10-10 mg tablet,delayed release (DR/EC) 1 tablet PO Q8-10H PRN (Reason: nausea and vomiting) Qty: 30 0RF Follow-up/Referrals: Mary,SUKH Kelsey [Primary Care Provider] - 2 Weeks Stand Alone Forms: Work/School Release IP Time of Disposition: 18:13
[2024-02-18] MEDS: LIDOCAINE 5% PATCH 1 PATCH TRANSDERM (18:17)
[2024-02-18] MEDS: ACETAMINOPHEN 500 MG TABLET 1000 MG PO (18:17)
[2024-02-18 18:23] VITALS: BP 132/80; PULSE 80; RESP 16; TEMP 36.4; O2SAT 100
== END 2024-02-18 18:26 | disposition home or self-care (01) ==
LOC: ANHED 18:22
PROVIDERS: Emergency Provider Preventive Medicine Aerospace Medicine; PCP Physician Assistant
DX: O9A.211 Injury, poisoning and certain other consequences of external causes complicating pregnancy, first trimester (principal); S06.0X0A Concussion without loss of consciousness, initial encounter; S30.0XXA Contusion of lower back and pelvis, initial encounter; S20.20XA Contusion of thorax, unspecified, initial encounter; O99.331 Smoking (tobacco) complicating pregnancy, first trimester; F17.210 Nicotine dependence, cigarettes, uncomplicated; F17.290 Nicotine dependence, other tobacco product, uncomplicated; Z3A.01 Less than 8 weeks gestation of pregnancy; W01.0XXA Fall on same level from slipping, tripping and stumbling without subsequent striking against object, initial encounter
CPT/HCPCS: 99283; A9270

== ENCOUNTER 2024-02-21 08:11 | Outpatient (CLI) | payer BC, SELFPAY | END 2024-02-21 08:12 | disposition home or self-care (01) | PROVIDERS: PCP Physician Assistant; Visit Provider Student in an Organized Health Care Education/Training Program | DX: N91.2 Amenorrhea, unspecified (principal) | CPT/HCPCS: 36415; 84702 ==

== ENCOUNTER 2024-03-05 11:28 | Outpatient (CLI) | payer BC, SELFPAY ==
--- NOTE | ~2024-03-05 | US_ITS ---
EXAMINATION: US OB <=14 wk fetus w TV DATE: 03/05/2024 12:13 INDICATION: Threatened during first trimester . TECHNIQUE: Real-time pelvic ultrasound utilizing both a transvaginal and transabdominal probe was pe rformed. The interpreting radiologist was not present for the study. COMPARISON: None. FINDINGS: The uterus measures 10.4 x 6.5 x 7.8 cm. There is an intrauterine gestational sac. A yolk sac and fe erika pole are identified. The crown rump length measures 2.6 cm, which correlates with an estimated ge stational age of 9 weeks and 3 days. heart motion is identified measuring 167 beats per minute (bpm) by M-mode Doppler. There is a small tubular cystic structure measuring 2 mm diameter extending to a 6-7 mm cystic structure along side the amniotic sac which suggests a possible failed twin pregna ncy with second fluid-filled umbilical cord and empty amniotic sac with no discernible second p ole. The right ovary measures 2.4 x 1.8 x 1.5 cm. The left ovary measures 3.8 x 2.0 x 3.3 cm. 1.3 cm likel y corpus luteum cyst in the left ovary. There is no free fluid in the pelvis. IMPRESSION: 1. Single living fetus with heart rate of 167 bpm. 2. Gestational age by ultrasound of 9 weeks 3 day(s) +/- 6 day(s) with ultrasound estimated date of delivery (ALANA) of 10/05/2024. 3. Small subcentimeter anechoic tubular structure extending to a 6-7 mm cystic structure within the g estational sac abutting the peripheral margin of the pole containing amniotic sac which suggest s possible failed monochorionic, diamniotic twin with a second smaller empty amniotic sac. Reviewed, dictated and finalized at location A. IMPRESSION: 1. Single living fetus with heart rate of 167 bpm. 2. Gestational age by ultrasound of 9 weeks 3 day(s) +/- 6 day(s) with ultraso und estimated date of delivery (ALANA) of 10/05/2024. 3. Small subcentimeter anechoic tubular structure extending to a 6-7 mm cystic structure within the gestational sac abutting the peripheral margin of the feta l pole containing amniotic sac which suggests possible failed monochorionic, di amniotic twin with a second smaller empty amniotic sac.
== END 2024-03-05 11:29 ==
LOC: MICIMG 11:29
PROVIDERS: PCP Student in an Organized Health Care Education/Training Program; Visit Provider Student in an Organized Health Care Education/Training Program
DX: O20.0 Threatened abortion (principal); Z3A.09 9 weeks gestation of pregnancy
CPT/HCPCS: 76801; 76817

== ENCOUNTER 2024-03-16 08:43 | Outpatient (CLI) | payer BC, SELFPAY ==
[2024-03-16 09:23] LABS: Basophils Percent Auto 0.4 % (0.2-1.2); Eosinophils Absolute Auto 0.3 K/mm3 (0-0.3); Eosinophils Percent Auto 2.4 % (0-4.4); Hematocrit 39.7 % (37.0-47.0); Hemoglobin 13.6 g/dL (12.0-15.0); Immature Granulocyte Absolute 0.05 K/mm3 (0.00-0.031); Immature Granulocyte Percent A 0.4 % (0-0.5); Lymphocytes Absolute Auto 2.12 K/mm3 (0.9-3.2); Lymphocytes Percent Auto 18.7 % (18.3-44.2); Mean Corpuscular HGB Conc 34.3 g/dl (32-36); Mean Corpuscular Hemoglobin 30.8 pg (26-34); Mean Corpuscular Volume 89.8 fl (80-100); Mean Platelet Volume 10.3 fl (7.4-10.4); Monocytes Absolute Auto 1.1 K/mm3 (0.1-0.6); Monocytes Percent Auto 9.6 % (2.6-8.5); Neutrophils Absolute Auto 7.8 K/mm3 (1.3-6.7); Neutrophils Percent Auto 68.5 % (45.5-73.1); Platelet Count Result 230 k/mm3 (150-375); Red Blood Count 4.42 M/mm3 (4.2-5.4); White Blood Count 11.4 K/mm3 (4.5-10.0)
[2024-03-16 09:25] LABS: Creatinine Urine 120.2 mg/dL; Total Protein Urine Random 31 mg/dL
[2024-03-16 09:26] LABS: Alanine Aminotransferase 11 U/L (6-35); Alkaline Phosphatase 68 U/L (38-126); Anion Gap 9 mmol/L (4-12); Aspartate Amino Transferase 17 U/L (14-36); Bilirubin,Total 0.6 mg/dL (0.2-1.3); Blood Urea Nitrogen 9 mg/dL (7-17); Calcium 9.4 mg/dL (8.4-10.2); Carbon Dioxide 17 mmol/L (22-30); Chloride 109 mmol/L (98-107); Estimated Glomerular Filt Rate > 60; Glucose 77 mg/dL (65-110); Potassium 3.9 mmol/L (3.4-5.0); Sodium 135 mmol/L (137-145); Uric Acid 2.8 mg/dL (2.5-7.5)
[2024-03-16 10:04] LABS: Hepatitis B Surface Antigen Negative (Negative); Rubella IgG Antibody 30.9 IU/ML
[2024-03-16 10:04] LABS: HIV 1/2 Ab P24 Ag Result Negative (Negative)
[2024-03-16 11:24] LABS: Rapid Plasma Reagin Non-Reactive (NonReactive)
[2024-03-19 12:08] LABS: CMV IgG Antibody <0.60 U/mL
== END 2024-03-16 08:44 | disposition home or self-care (01) ==
LOC: ANHLAB 08:45
PROVIDERS: PCP Student in an Organized Health Care Education/Training Program; Visit Provider Student in an Organized Health Care Education/Training Program
DX: N94.89 Other specified conditions associated with female genital organs and menstrual cycle (principal)
CPT/HCPCS: 36415; 80053; 81050; 82570; 84156; 84550; 84702; 85025; 86592; 86644; 86703; 86747; 86762; 86787; 86850; 86880; 86900; 86901; 86902; 87086; 87088; 87340; G0432

== ENCOUNTER 2024-04-19 15:10 | Outpatient (CLI) | payer BC, SELFPAY ==
[2024-04-19 16:40] LABS: Basophils Percent Auto 0.3 % (0.2-1.2); Eosinophils Absolute Auto 0.2 K/mm3 (0-0.3); Eosinophils Percent Auto 1.4 % (0-4.4); Hematocrit 35.9 % (37.0-47.0); Hemoglobin 12.2 g/dL (12.0-15.0); Immature Granulocyte Percent A 0.7 % (0-0.5); Lymphocytes Absolute Auto 2.52 K/mm3 (0.9-3.2); Lymphocytes Percent Auto 18.2 % (18.3-44.2); Mean Corpuscular Volume 91.1 fl (80-100); Mean Platelet Volume 10.4 fl (7.4-10.4); Monocytes Absolute Auto 1.2 K/mm3 (0.1-0.6); Monocytes Percent Auto 8.8 % (2.6-8.5); Neutrophils Absolute Auto 9.8 K/mm3 (1.3-6.7); Neutrophils Percent Auto 70.6 % (45.5-73.1); Platelet Count Result 247 k/mm3 (150-375); Red Blood Count 3.94 M/mm3 (4.2-5.4); Red Cell Distribution Width 12.7 % (11.5-14.5); White Blood Count 13.9 K/mm3 (4.5-10.0)
[2024-04-19 17:01] LABS: Alanine Aminotransferase 8 U/L (6-35); Albumin Level 3.9 g/dL (3.5-5.1); Alkaline Phosphatase 74 U/L (38-126); Anion Gap 7 mmol/L (4-12); Aspartate Amino Transferase 16 U/L (14-36); Bilirubin,Total 0.5 mg/dL (0.2-1.3); Blood Urea Nitrogen 8 mg/dL (7-17); Calcium 9.3 mg/dL (8.4-10.2); Carbon Dioxide 20 mmol/L (22-30); Chloride 109 mmol/L (98-107); Estimated Glomerular Filt Rate > 60; Glucose 75 mg/dL (65-110); Lactate Dehydrogenase 180 U/L (120-246); Potassium 4.1 mmol/L (3.4-5.0); Sodium 136 mmol/L (137-145); Uric Acid 2.5 mg/dL (2.5-7.5)
== END 2024-04-19 15:11 | disposition home or self-care (01) ==
PROVIDERS: PCP Student in an Organized Health Care Education/Training Program; Visit Provider Obstetrics & Gynecology
DX: O10.919 Unspecified pre-existing hypertension complicating pregnancy, unspecified trimester (principal); Z3A.00 Weeks of gestation of pregnancy not specified
CPT/HCPCS: 36415; 80053; 83615; 84550; 85025

== ENCOUNTER 2024-04-23 11:15 | Outpatient (CLI) | payer BC, SELFPAY ==
[2024-04-23 13:18] LABS: Total Volume 24 Hour Urine 600 ml
[2024-04-23 13:26] LABS: Total Protein Urine 24 Hr 78 mg/24hr (28-141); Total Protein Urine Random 13 mg/dL
[2024-04-23 13:28] LABS: Creatinine 24 Hour Urine 0.7 gm/24 (0.8-1.8)
== END 2024-04-23 11:16 | disposition home or self-care (01) ==
LOC: ANHLAB 11:16
PROVIDERS: PCP Student in an Organized Health Care Education/Training Program; Visit Provider Obstetrics & Gynecology
DX: O10.919 Unspecified pre-existing hypertension complicating pregnancy, unspecified trimester (principal); Z3A.00 Weeks of gestation of pregnancy not specified
CPT/HCPCS: 81050; 82570; 84156

== ENCOUNTER 2024-05-04 05:27 | Emergency (ER) | payer BC, SELFPAY ==
[2024-05-04] VITALS (15 sets, daily range): BP systolic 113–126; BP diastolic 48–84; PULSE 71–89; RESP 16–27; TEMP 36.7; O2SAT 97–100
--- NOTE | ~2024-05-04 | US_ITS ---
EXAMINATION: US OB limited DATE: 05/04/2024 09:09 INDICATION: Trauma. Estimated gestational age of 18 weeks and 0 days. TECHNIQUE: Real-time ultrasound of the pelvis was performed. COMPARISON: Ultrasound 03/05/2024 FINDINGS: There is a single fetus in breech presentation. The placenta is fundal and posterior. heart ra te is 144 beats per minute (bpm). The amniotic fluid volume is surgically normal. The deepest vertica l pocket is 5.3 cm, which is normal. The cervical length is normal on transabdominal images and measu res 4.3 cm. IMPRESSION: 1. Single living fetus in breech presentation. 2. Normal placenta. Reviewed, dictated and finalized at location A.
--- NOTE | 2024-05-04 05:53 | ED.FALL ---
HPI - Fall General Chief Complaint: Fall <Erick Sainz DO - Last Filed: 05/04/24 07:21> Stated Complaint: fall, 18 weeks preg <Erick Sainz DO - Last Filed: 05/04/24 07:21> Time Seen by Provider: 05/04/24 05:34 <Erick Sainz DO - Last Filed: 05/04/24 07:21> Source: patient <Erick Sainz DO - Last Filed: 05/04/24 07:21> Limitations: no limitations <Erick Sainz DO - Last Filed: 05/04/24 07:21> History of Present Illness HPI Narrative: Patient is a 24-year-old female presents to the emergency department complaining of a fall with right-sided truncal pain. Patient states last night around 11:00 p.m. she usually tripped and fell from a standing height and fell onto her side with her right arm tucked in and within having any discomfort at that time and went to bed however this morning when she woke up about 1 hour ago she was notice in some slight right sided abdominal pain towards the flank region in both the upper and lower aspect the feels ache like, intermittent, to Tylenol for the pain, denies history of this pain in the past, notes that the pain is worse with movement and better with rest. Patient also states she noticed vaginal spotting this morning. Patient denies any loss of fluids. Patient denies contractions. Patient states she is 18 weeks and is known to Jorge Lopez and this is her 2nd with her 1st having no complications, also states that she was having spotting in January and received a RhoGAM shot at that time. Patient denies chest pain, difficulty breathing, vomiting, urinary discomfort, changes of movement. <Erick Sainz DO - Last Filed: 05/04/24 07:21> Related Data Home Medications: Home Medications Medication Instructions Recorded Confirmed vits no.126-ferrous fum tablet PO 02/23/24 04/19/24 28 mg iron-folic acid 800 mcg tablet (Classic ) sertraline 25 mg tablet 25 mg PO DAILY 02/23/24 04/19/24 aspirin 81 mg tablet,delayed 81 mg PO DAILY 04/19/24 04/19/24 release (Gisella Low Dose Aspirin) <Erick Sainz DO - Last Filed: 05/04/24 07:21> Allergies/Adverse Reactions: Allergies Allergy/AdvReac Type Severity Reaction Status Date / Time azithromycin Allergy Hives Verified 05/04/24 05:33 [From Zithromax Z-Sg] <Erick Sainz DO - Last Filed: 05/04/24 07:21> Review of Systems Review of Systems: A 10 system review of systems was completed on the patient and is negative except for what is stated in the HPI. Nursing and ancillary documentation was reviewed. <Erick Sainz DO - Last Filed: 05/04/24 07:21> [facility] Past Medical History Medical History: Medical History Acute suppur left otitis media w/o spontan rupture tympanic membrane Contraceptive management Decreased movement Encounter for induction of labor IUGR (intrauterine growth restriction) Left foot pain No active medical problems Normal vaginal delivery of first Sexually transmissible disease Suppression of menses <Erick Sainz DO - Last Filed: 05/04/24 07:21> Surgical History Surgical History: Surgical History Hx of toe surgery 2011 bilateral great toe pinning <Erick Sainz DO - Last Filed: 05/04/24 07:21> Family History Family History: Family History Mother Family history non-contributory Other No significant family history <Erick Sainz DO - Last Filed: 05/04/24 07:21> Social History Social History: Social History (Updated 04/19/24 @ 14:15 by SLIM Willett) Smoking status: Former smoker Second hand tobacco smoke exposure: No Alcohol intake: former Alcohol use details: rarely Substance use: former Substance use t
[2024-05-04] MEDS: ACETAMINOPHEN 500 MG TABLET 1000 MG PO (06:19)
[2024-05-04 06:29] LABS: Basophils Percent Auto 0.3 % (0.2-1.2); Eosinophils Absolute Auto 0.3 K/mm3 (0-0.3); Eosinophils Percent Auto 2.3 % (0-4.4); Hematocrit 31.3 % (37.0-47.0); Hemoglobin 11.1 g/dL (12.0-15.0); Immature Granulocyte Absolute 0.06 K/mm3 (0.00-0.031); Immature Granulocyte Percent A 0.6 % (0-0.5); Lymphocytes Absolute Auto 1.75 K/mm3 (0.9-3.2); Lymphocytes Percent Auto 16.4 % (18.3-44.2); Mean Corpuscular HGB Conc 35.5 g/dl (32-36); Mean Corpuscular Hemoglobin 31.7 pg (26-34); Mean Corpuscular Volume 89.4 fl (80-100); Mean Platelet Volume 10.4 fl (7.4-10.4); Neutrophils Absolute Auto 7.7 K/mm3 (1.3-6.7); Neutrophils Percent Auto 71.4 % (45.5-73.1); Platelet Count Result 206 k/mm3 (150-375); White Blood Count 10.7 K/mm3 (4.5-10.0)
[2024-05-04 06:41] LABS: Alanine Aminotransferase 9 U/L (6-35); Albumin Level 3.6 g/dL (3.5-5.1); Alkaline Phosphatase 77 U/L (38-126); Anion Gap 7 mmol/L (4-12); Aspartate Amino Transferase 15 U/L (14-36); Bilirubin,Total 0.5 mg/dL (0.2-1.3); Blood Urea Nitrogen 7 mg/dL (7-17); Calcium 8.8 mg/dL (8.4-10.2); Carbon Dioxide 18 mmol/L (22-30); Chloride 111 mmol/L (98-107); Estimated CRCL calculation 193 ml/min; Estimated Glomerular Filt Rate > 60; Glucose 81 mg/dL (65-110); Lipase 90 U/L (23-300); Potassium 3.6 mmol/L (3.4-5.0); Sodium 136 mmol/L (137-145)
[2024-05-04 07:46] LABS: Prothrombin Time 13.7 Seconds (11.1-14.7)
[2024-05-04 07:47] LABS: Partial Thromboplastin Time 29.5 Seconds (22.3-36.8)
[2024-05-04 07:49] LABS: Fibrinogen 425 mg/dl (215-510)
[2024-05-04] MEDS: RHO(D) IMMUNE GLOBULIN 300 MCG/2 ML SYRINGE IM (09:15)
== END 2024-05-04 09:59 | disposition home or self-care (01) ==
PROVIDERS: Student in an Organized Health Care Education/Training Program; Emergency Provider Emergency Medicine; PCP Student in an Organized Health Care Education/Training Program
DX: O9A.212 Injury, poisoning and certain other consequences of external causes complicating pregnancy, second trimester (principal); R10.9 Unspecified abdominal pain; O26.852 Spotting complicating pregnancy, second trimester; O32.1XX0 Maternal care for breech presentation, not applicable or unspecified; Z87.891 Personal history of nicotine dependence; Z79.82 Long term (current) use of aspirin; Z79.899 Other long term (current) drug therapy; Z3A.18 18 weeks gestation of pregnancy; W01.0XXA Fall on same level from slipping, tripping and stumbling without subsequent striking against object, initial encounter
CPT/HCPCS: 36415; 76815; 80053; 83690; 85025; 85384; 85461; 85610; 85730; 86850; 86900; 86901; 90384; 96372; 99284; A9270; J2790

== ENCOUNTER 2024-05-07 15:29 | Observation (INO) | payer BC, SELFPAY ==
--- NOTE | ~2024-05-07 | US_ITS ---
EXAMINATION: US OB transvaginal DATE: 05/07/2024 17:34 INDICATION: Vaginal bleeding. Estimated gestational age of 18 weeks and 3 days. TECHNIQUE: Real-time ultrasound of the pelvis was performed. COMPARISON: Ultrasound 05/04/2024 FINDINGS: Transvaginal images demonstrate a cervical length of 6.1 cm which is normal. There is an 8 mm nabothi an cyst in the cervix. IMPRESSION: 1. Normal cervical length. Reviewed, dictated and finalized at location E. IMPRESSION: 1. Normal cervical length.
[2024-05-07 16:15] VITALS: BP 115/45; PULSE 65
[2024-05-07 16:28] LABS: Appearance Urine Clear (Clear); Bacteria Urine None Seen /hpf; Bilirubin Urine Negative (Negative); Blood Urine Negative (Negative); Color Urine Yellow (Yellow); Glucose Urine UA Negative (Negative); Ketones Urine Negative (Negative); Leukocyte Esterase Ur Trace LEU/UL (Negative); Nitrate Urine Negative (Negative); Non Pathogenic Casts 0-2; Protein Urine Negative (Negative); RBC Urine 0-2 /hpf (0-2); Squamous Epithelial Cell Urine Occasional /hpf (Few)
[2024-05-07 16:30] VITALS: BP 120/56; PULSE 75
[2024-05-07 16:45] VITALS: BP 121/55; PULSE 77
[2024-05-07 16:53] LABS: Add Urine Microscopic? YES
[2024-05-07 17:00] VITALS: BP 117/56; PULSE 71
[2024-05-07 18:34] VITALS: BMI 37.7
--- NOTE | 2024-05-07 18:35 | OBADM ---
This patient, Gladis Martel, admitted to the OB room OB Post 116 for observation. Patient/family oriented to hospital policies and general routines including ID bracelet, bed and alarms, visiting hours, pain management, procedures, bathroom and other care routines, personal items, smoking policy, room service/diet, and visiting hours. Patient/Family are encouraged to report perceived risks to care and to ask questions if they do not understand what they are told or what they should do. Pt. presents with reports of abdominal pain and tightening in her lower back. She sates she fell on and was seen Tuesday in the ED. She states she was bleeding on Tuesday, and now only has some left over pink spotting on occasion .
--- NOTE | 2024-05-08 11:03 | P.PNOB_ITS ---
OB - Triage/Final Diagnosis Visit Information Comments/Additional reasons for admission: I have assessed the risk for this patient, Gladis Martel, and determined that she would benefit from observation care. Evaluation Laboratory results: Laboratory Tests 05/07/24 15:52 Urine Color Yellow Urine Appearance Clear Urine pH 6.0 Ur Specific [place] 1.020 Urine Protein Negative Urine Glucose (UA) Negative Urine Ketones Negative Ur Blood (Man) Negative Urine Nitrate Negative Urine Bilirubin Negative Urine Urobilinogen 1.0 Leukocyte Esterase Rfl Trace H Urine RBC 0-2 Urine WBC 6-10 H Ur Squamous Epith Cells Occasional Urine Bacteria None seen Urine Casts 0-2 Vital signs: Vital Signs - 24 hr 05/07/24 16:15 05/07/24 16:30 05/07/24 16:45 Pulse Rate 65 75 77 Blood Pressure 115/45 L 120/56 L 121/55 L 05/07/24 17:00 Pulse Rate 71 Blood Pressure 117/56 L Final Diagnosis (1) Abdominal pain affecting : Code(s): O26.899 - Other specified related conditions, unspecified trimester; R10.9 - Unspecified abdominal pain Status: Acute (2) Urinary tract infection: Qualifiers: Hematuria presence: with hematuria Urinary tract infection type: site unspecified Qualified Code(s): N39.0 - Urinary tract infection, site not specified; R31.9 - Hematuria, unspecified Code(s): N39.0 - Urinary tract infection, site not specified Status: Acute
== END 2024-05-07 18:22 | disposition home or self-care (01) ==
PROVIDERS: Admitting Provider Obstetrics & Gynecology; PCP Physician Assistant; Visit Provider Obstetrics & Gynecology
DX: O23.42 Unspecified infection of urinary tract in pregnancy, second trimester (principal); N39.0 Urinary tract infection, site not specified; O26.892 Other specified pregnancy related conditions, second trimester; R10.9 Unspecified abdominal pain; Z3A.18 18 weeks gestation of pregnancy
CPT/HCPCS: 76817; 81001; 87086; 87088; G0378; G0379

== ENCOUNTER 2024-06-12 20:34 | Observation (INO) | payer BC, MEDICAID, SELFPAY ==
[2024-06-12] VITALS (22 sets, daily range): BP systolic 109–116; BP diastolic 52–62; PULSE 80–92; O2SAT 99–100; BMI 36.1
--- NOTE | 2024-06-12 20:34 | PC.NURSE ---
Pt arrives to unit with contractions.
[2024-06-12 21:39] LABS: Add Urine Microscopic? YES; Appearance Urine Clear (Clear); Bacteria Urine None Seen /hpf; Bilirubin Urine Negative (Negative); Blood Urine 1+ (Negative); Color Urine Yellow (Yellow); Glucose Urine UA Negative (Negative); Ketones Urine Negative (Negative); Leukocyte Esterase Ur Negative LEU/UL (Negative); Nitrate Urine Negative (Negative); Non Pathogenic Casts 0-2; Protein Urine Negative (Negative); Specific Grav Ur 1.025 (1.001-1.035); Squamous Epithelial Cell Urine Occasional /hpf (Few); WBC Urine 0-5 /hpf (0-3)
--- NOTE | 2024-06-12 22:14 | PC.NURSE ---
Called Dr. Chung, update on pt, tracing, contractions, soft abdomen, blood pressure, and labs. Orders received to discharge pt with instructions to take Tylenol as needed for cramping, keep next scheduled appointment, and when to return to the unit.
--- NOTE | 2024-06-12 22:19 | PC.NURSE ---
Pt lindsey contractions every 12 to 13 minutes, 10 seconds long.
--- NOTE | 2024-06-12 22:39 | PC.NURSE ---
Pt discharged with instructions to take Tylenol as needed for cramping, keep next scheduled appointment, and when to return to the unit, pt verbalizes understanding.
--- NOTE | 2024-06-13 08:02 | P.PNOB_ITS ---
OB - Triage/Final Diagnosis Visit Information Date of evaluation: 06/12/24 Reason for evaluation: threatened labor Comments/Additional reasons for admission: I have assessed the risk for this patient, Gladis Martel, and determined that she would benefit from observation care. Evaluation Laboratory results: Laboratory Tests 06/12/24 21:24 Urine Color Yellow Urine Appearance Clear Urine pH 6.0 Ur Specific [place] 1.025 Urine Protein Negative Urine Glucose (UA) Negative Urine Ketones Negative Ur Blood (Man) 1+ H Urine Nitrate Negative Urine Bilirubin Negative Urine Urobilinogen 1.0 Leukocyte Esterase Rfl Negative Urine RBC 6-10 H Urine WBC 0-5 Ur Squamous Epith Cells Occasional Urine Bacteria None seen Urine Casts 0-2 Vital signs: Vital Signs - 24 hr 06/12/24 20:54 06/12/24 20:59 06/12/24 21:04 Pulse Rate Blood Pressure Blood Pressure [Left Arm] Pulse Oximetry 99 100 100 Oxygen Delivery 06/12/24 21:09 06/12/24 21:10 06/12/24 21:14 Pulse Rate 86 Blood Pressure 116/62 Blood Pressure [Left Arm] Pulse Oximetry 100 100 Oxygen Delivery 06/12/24 21:19 06/12/24 21:24 06/12/24 21:29 Pulse Rate Blood Pressure Blood Pressure [Left Arm] Pulse Oximetry 99 99 100 Oxygen Delivery 06/12/24 21:30 06/12/24 21:34 06/12/24 21:39 Pulse Rate 85 Blood Pressure 109/52 L Blood Pressure [Left Arm] Pulse Oximetry 100 100 Oxygen Delivery 06/12/24 21:44 06/12/24 21:49 06/12/24 21:54 Pulse Rate Blood Pressure Blood Pressure [Left Arm] Pulse Oximetry 100 100 100 Oxygen Delivery 06/12/24 21:59 06/12/24 22:00 06/12/24 22:04 Pulse Rate 85 Blood Pressure 115/62 Blood Pressure [Left Arm] Pulse Oximetry 100 100 Oxygen Delivery 06/12/24 22:09 06/12/24 22:14 06/12/24 22:19 Pulse Rate Blood Pressure Blood Pressure [Left Arm] Pulse Oximetry 100 100 100 Oxygen Delivery 06/12/24 21:01 06/12/24 21:28 Pulse Rate 85 Blood Pressure Blood Pressure [Left Arm] 116/62 Pulse Oximetry Oxygen Delivery Room Air
== END 2024-06-12 22:39 | disposition home or self-care (01) ==
PROVIDERS: Admitting Provider Student in an Organized Health Care Education/Training Program; PCP Physician Assistant; Visit Provider Student in an Organized Health Care Education/Training Program
DX: O47.9 False labor, unspecified (principal)
CPT/HCPCS: 59025; 81001; G0378; G0379

== ENCOUNTER 2024-07-11 14:52 | Observation (INO) | payer MEDICAID, SELFPAY ==
[2024-07-11 15:30] VITALS: BP 122/59; PULSE 89
[2024-07-11 15:45] VITALS: BP 125/50; PULSE 88
[2024-07-11 16:00] VITALS: BP 121/65; PULSE 85
[2024-07-11 16:30] LABS: Add Urine Microscopic? YES; Appearance Urine Cloudy (Clear); Bacteria Urine 1+ /hpf; Bilirubin Urine Negative (Negative); Blood Urine 2+ (Negative); Calcium Oxalate Crystals Urine Present /hpf; Color Urine Yellow (Yellow); Glucose Urine UA 2+ mg/dL (Negative); Ketones Urine Negative (Negative); Leukocyte Esterase Ur Trace LEU/UL (Negative); Nitrate Urine Negative (Negative); Non Pathogenic Casts 0-2; Protein Urine Negative (Negative); RBC Urine 21-50 /hpf (0-2); Specific Grav Ur 1.025 (1.001-1.035); Squamous Epithelial Cell Urine Moderate /hpf (Few)
--- NOTE | 2024-07-11 16:44 | PC.NURSE ---
1630: RN phoned OB to inform her of patient's complaints of spotting. RN informed OB of urine results. orders to discharge patient home. OB stated she is sending in antibiotics for patient to take.
[2024-07-11 16:45] VITALS: BP 121/55; PULSE 80
--- NOTE | 2024-07-11 16:47 | OBADM ---
This patient, Gladis Martel, admitted to the OB room OB Post 113 for observation. Patient/family oriented to hospital policies and general routines including ID bracelet, bed and alarms, visiting hours, pain management, procedures, bathroom and other care routines, personal items, smoking policy, room service/diet, and visiting hours. Patient/Family are encouraged to report perceived risks to care and to ask questions if they do not understand what they are told or what they should do.
[2024-07-11 17:02] VITALS: BP 122/59; PULSE 85
--- NOTE | 2024-07-12 08:23 | PM.OBTRLD ---
OB - Triage/Final Diagnosis Visit Information Comments/Additional reasons for admission: I have assessed the risk for this patient, Gladis Martel, and determined that she would benefit from observation care. Evaluation Laboratory results: Laboratory Tests 07/11/24 15:30 Urine Color Yellow Urine Appearance Cloudy H Urine pH 6.0 Ur Specific [place] 1.025 Urine Protein Negative Urine Glucose (UA) 2+ H Urine Ketones Negative Ur Blood (Man) 2+ H Urine Nitrate Negative Urine Bilirubin Negative Urine Urobilinogen 1.0 Leukocyte Esterase Rfl Trace H Urine RBC 21-50 H Urine WBC 6-10 H Ur Squamous Epith Cells Moderate Calcium Oxalate Crystal Present Urine Bacteria 1+ H Urine Casts 0-2 Vital signs: Vital Signs - 24 hr 07/11/24 15:30 07/11/24 15:45 07/11/24 16:00 Pulse Rate 89 88 85 Blood Pressure 122/59 L 125/50 L 121/65 Blood Pressure [Right Arm] 07/11/24 16:45 07/11/24 17:02 Pulse Rate 80 85 Blood Pressure 121/55 L Blood Pressure [Right Arm] 122/59 L Final Diagnosis (1) Urinary tract infection: Qualifiers: Hematuria presence: with hematuria Urinary tract infection type: site unspecified Qualified Code(s): N39.0 - Urinary tract infection, site not specified; R31.9 - Hematuria, unspecified Code(s): N39.0 - Urinary tract infection, site not specified Status: Acute
== END 2024-07-11 16:00 | disposition home or self-care (01) ==
PROVIDERS: Admitting Provider Obstetrics & Gynecology; PCP Physician Assistant; Visit Provider Obstetrics & Gynecology
DX: O23.40 Unspecified infection of urinary tract in pregnancy, unspecified trimester (principal); N39.0 Urinary tract infection, site not specified; Z3A.00 Weeks of gestation of pregnancy not specified
CPT/HCPCS: 59025; 81001; 87086; 87088; G0378; G0379

== ENCOUNTER 2024-07-13 08:01 | Outpatient (CLI) | payer MEDICAID, SELFPAY ==
[2024-07-13 09:26] LABS: Basophils Percent Auto 0.1 % (0.2-1.2); Eosinophils Absolute Auto 0.2 K/mm3 (0-0.3); Eosinophils Percent Auto 1.5 % (0-4.4); Hematocrit 30.9 % (37.0-47.0); Hemoglobin 10.8 g/dL (12.0-15.0); Immature Granulocyte Absolute 0.07 K/mm3 (0.00-0.031); Immature Granulocyte Percent A 0.7 % (0-0.5); Lymphocytes Absolute Auto 1.35 K/mm3 (0.9-3.2); Lymphocytes Percent Auto 13.5 % (18.3-44.2); Mean Corpuscular Volume 91.7 fl (80-100); Mean Platelet Volume 10.4 fl (7.4-10.4); Monocytes Absolute Auto 0.7 K/mm3 (0.1-0.6); Monocytes Percent Auto 6.7 % (2.6-8.5); Neutrophils Absolute Auto 7.8 K/mm3 (1.3-6.7); Neutrophils Percent Auto 77.5 % (45.5-73.1); Platelet Count Result 194 k/mm3 (150-375); Red Blood Count 3.37 M/mm3 (4.2-5.4); Red Cell Distribution Width 13.1 % (11.5-14.5)
[2024-07-13 09:47] LABS: Glucose 1 Hour PP 50gm Dose 123 mg/dL
[2024-07-13 10:23] LABS: HIV 1/2 Ab P24 Ag Result Negative (Negative)
[2024-07-13 16:36] LABS: Rapid Plasma Reagin Non-Reactive (NonReactive)
== END 2024-07-13 08:02 | disposition home or self-care (01) ==
LOC: ANHLAB 08:03
PROVIDERS: PCP Physician Assistant; Visit Provider Obstetrics & Gynecology
DX: Z34.90 Encounter for supervision of normal pregnancy, unspecified, unspecified trimester (principal); Z3A.00 Weeks of gestation of pregnancy not specified
CPT/HCPCS: 36415; 82947; 85025; 85461; 86592; 86703; 86850; 86900; 86901; G0432

== ENCOUNTER 2024-07-18 17:34 | Outpatient (CLI) | payer MEDICAID, SELFPAY ==
[2024-07-19] MEDS: RHO(D) IMMUNE GLOBULIN 300 MCG/2 ML SYRINGE IM (10:07)
== END 2024-07-18 17:35 | disposition home or self-care (01) ==
LOC: ANHLAB 17:35
PROVIDERS: PCP Physician Assistant; Visit Provider Obstetrics & Gynecology
DX: Z34.90 Encounter for supervision of normal pregnancy, unspecified, unspecified trimester (principal); Z3A.00 Weeks of gestation of pregnancy not specified
CPT/HCPCS: 36415; 85461; 86850; 86900; 86901; 90384; 96372; J2790

== ENCOUNTER 2024-07-19 10:11 | Outpatient (CLI) | payer MEDICAID, SELFPAY ==
[2024-07-19 10:46] VITALS: BP 126/60; PULSE 91
[2024-07-19 10:49] VITALS: BP 126/60; PULSE 91
[2024-07-19 11:08] LABS: OBXCEM ROM Plus Negative (Negative)
== END 2024-07-19 10:50 | disposition home or self-care (01) ==
LOC: ANHOBOP 10:17 → ANHOBPP 10:19
PROVIDERS: PCP Physician Assistant; Visit Provider Obstetrics & Gynecology
DX: O42.90 Premature rupture of membranes, unspecified as to length of time between rupture and onset of labor, unspecified weeks of gestation (principal); Z3A.00 Weeks of gestation of pregnancy not specified
CPT/HCPCS: 59025; 84112; 90384; 96372; 99199; J2790

== ENCOUNTER 2024-08-12 16:49 | Observation (INO) | payer OTHER, SELFPAY ==
[2024-08-12] VITALS (7 sets, daily range): BP systolic 110–130; BP diastolic 60–93; PULSE 83–114; BMI 36.5
--- NOTE | 2024-08-13 11:34 | PM.OBTRLD ---
OB - Triage/Final Diagnosis Visit Information Comments/Additional reasons for admission: I have assessed the risk for this patient, Gladis Martel, and determined that she would benefit from observation care. Evaluation Vital signs: Vital Signs - 24 hr 08/12/24 17:19 08/12/24 17:30 08/12/24 18:00 Pulse Rate 96 114 H 86 Blood Pressure 117/71 130/69 125/93 H 08/12/24 18:30 08/12/24 19:00 08/12/24 19:30 Pulse Rate 90 83 94 Blood Pressure 113/65 119/62 110/60 08/12/24 20:00 Pulse Rate 90 Blood Pressure 128/63 Final Diagnosis (1) Fall down steps: Code(s): W10.8XXA - Fall (on) (from) other stairs and steps, initial encounter Status: Acute
== END 2024-08-12 20:20 ==
PROVIDERS: Admitting Provider Obstetrics & Gynecology; PCP Physician Assistant; Visit Provider Obstetrics & Gynecology
DX: Z04.3 Encounter for examination and observation following other accident (principal); O99.891 Other specified diseases and conditions complicating pregnancy; W10.8XXA Fall (on) (from) other stairs and steps, initial encounter; Z3A.32 32 weeks gestation of pregnancy
CPT/HCPCS: G0378; G0379

== ENCOUNTER 2024-09-08 15:06 | Observation (INO) | payer MEDICAID, SELFPAY ==
[2024-09-08 15:20] VITALS: BMI 36.7
[2024-09-08 15:21] VITALS: BP 125/68; PULSE 98
--- NOTE | 2024-09-08 15:30 | PC.NURSE ---
Patient came in with complaints of pelvic pain. Patient states she thought she was tati, but on her way to the hospital felt like it wasn't contractions as she's had pelvic pain for the past 2 days and is uncomfortable when she sits down. Patient has chronic hypertension and polyhydramnios as well as an LGA fetus. Dr. Lopez on unit and notified of patient's arrival and complaints. Verbal orders received to obtain an NST on patient and send UA if patient is tati.
[2024-09-08 15:31] VITALS: BP 127/67; PULSE 94
--- NOTE | 2024-09-08 15:36 | LDADM ---
This patient, Gladis Martel, was admitted to OB Post 117 on 09/08/24 at 15:06. Plans for labor, pain management and were discussed with patient. Patient/family oriented to hospital policies and general routines including ID bracelet, bed and alarms, visiting hours, pain management, procedures, bathroom and other care routines, personal items, smoking policy, room service/diet and guest tray routines, infant security routines, and visiting hours. Patient/Family are encouraged to report perceived risks to care and to ask questions if they do not understand what they are told or what they should do. See OBIX for further documentation.
--- NOTE | 2024-09-08 15:40 | PM.OBTRLD ---
OB - Triage/Final Diagnosis Visit Information Comments/Additional reasons for admission: I have assessed the risk for this patient, Gladis Martel, and determined that she would benefit from observation care. Evaluation Vital signs: Vital Signs - 24 hr 09/08/24 15:21 09/08/24 15:31 09/08/24 15:20 Pulse Rate 98 94 Blood Pressure 125/68 127/67 Oxygen Delivery Room Air Final Diagnosis (1) Vaginal pain: Code(s): R10.2 - Pelvic and perineal pain Status: Acute
[2024-09-08 15:46] VITALS: BP 124/73; PULSE 96
--- NOTE | 2024-09-08 15:54 | PC.NURSE ---
NST reactive and patient is not tati. Dr. Lopez in unit and reviewed tracing. Verbal orders received from MD to discharge patient to home. Patient agrees with plan of care at this time and has no questions.
[2024-09-08 16:07] VITALS: BP 124/73; PULSE 85
== END 2024-09-08 16:03 | disposition home or self-care (01) ==
PROVIDERS: Admitting Provider Obstetrics & Gynecology; PCP Physician Assistant; Visit Provider Obstetrics & Gynecology
DX: O26.893 Other specified pregnancy related conditions, third trimester (principal); R10.2 Pelvic and perineal pain; Z3A.36 36 weeks gestation of pregnancy
CPT/HCPCS: 59025; G0378; G0379

== ENCOUNTER 2024-09-23 10:09 | Observation (INO) | payer OTHER, SELFPAY ==
--- NOTE | 2024-09-23 10:09 | OBADM ---
This patient, Gladis Martel, admitted to the OB room Labor/Delivery/Recovery 105 for observation. Patient/family oriented to hospital policies and general routines including ID bracelet, bed and alarms, visiting hours, pain management, procedures, bathroom and other care routines, personal items, smoking policy, room service/diet, and visiting hours. Patient/Family are encouraged to report perceived risks to care and to ask questions if they do not understand what they are told or what they should do.
[2024-09-23 10:15] VITALS: BMI 35.8
--- NOTE | 2024-09-30 20:23 | PM.OBTRLD ---
OB - Triage/Final Diagnosis Visit Information Comments/Additional reasons for admission: I have assessed the risk for this patient, Gladis Martel, and determined that she would benefit from observation care. Final Diagnosis (1) False labor: Code(s): O47.9 - False labor, unspecified Status: Acute
== END 2024-09-23 12:47 | disposition home or self-care (01) ==
PROVIDERS: Admitting Provider Obstetrics & Gynecology; PCP Physician Assistant; Visit Provider Obstetrics & Gynecology
DX: O47.1 False labor at or after 37 completed weeks of gestation (principal); Z3A.38 38 weeks gestation of pregnancy
CPT/HCPCS: G0378; G0379

== ENCOUNTER 2024-09-24 17:20 | Outpatient (CLI) | payer OTHER, SELFPAY ==
[2024-09-24 18:14] VITALS: BP 121/61; PULSE 97
[2024-09-24 18:23] LABS: OBXCEM ROM Plus Negative (Negative)
== END 2024-09-24 17:21 | disposition home or self-care (01) ==
LOC: ANHOUTPT 18:05
PROVIDERS: PCP Physician Assistant; Visit Provider Obstetrics & Gynecology
DX: O42.90 Premature rupture of membranes, unspecified as to length of time between rupture and onset of labor, unspecified weeks of gestation (principal)
CPT/HCPCS: 59025; 84112

== ENCOUNTER 2024-10-01 06:21 | Inpatient (IN) | payer OTHER, SELFPAY ==
[2024-10-01] VITALS (119 sets, daily range): BP systolic 77–139; BP diastolic 40–105; PULSE 59–136; TEMP 36.3–36.8; O2SAT 93–100; BMI 39.3
--- NOTE | 2024-10-01 07:14 | PM.IMHP ---
H&P: HPI History of Present Illness Date/Time: 10/01/24 07:14 Chief Complaint: Induction Narrative: Gladis is a 24yo @ 39w 3d who presents for induction of labor. She reports irregular contractions. No VB or LOF. Her is complicated by: - CHTN- previously on lisinopril (stopped in ), no meds currently, low dose ASA, delivery at 37-39wk - started on meds @ 15wks -- labetalol 200mg BID, but then held due to hypotension - h/o IUGR w/ first - possible vanishing twin - Rh negative s/p rhogam 05/04/24 - LGA; NST + BPP weekly starting at 32 weeks Review of Systems Constitutional: Constitutional: Denies chills, Denies fever(s) and Denies headache(s) Eyes: Eyes: Denies change in vision ENT: Denies headache(s) Cardiovascular: Cardiovascular: Denies chest pain and Denies dyspnea Respiratory: Respiratory: Denies dyspnea Genitourinary: Genitourinary: Denies abnormal vaginal bleeding and Denies vaginal discharge Neurologic: Denies headache(s) Psychiatric: Psychiatric: Denies anxiety and Denies depression PMFSH Past Medical History Medical History Acute suppur left otitis media w/o spontan rupture tympanic membrane Contraceptive management Decreased movement Encounter for induction of labor IUGR (intrauterine growth restriction) Left foot pain No active medical problems Normal vaginal delivery of first Sexually transmissible disease Suppression of menses Surgical History Surgical History Hx of toe surgery 2011 bilateral great toe pinning Family History Family History Mother Family history non-contributory Other No significant family history Social History Social History Smoking status: Never smoker Second hand tobacco smoke exposure: No Alcohol intake: former Alcohol use details: rarely Substance use: never Substance use type: does not use Last use: LAST 01/30/21 Do You Feel Safe in your Home?: Yes Lack of Transportation: No Lack of Food: Never True Current Housing: I Have Housing Concerned About Future Housing: No Difficulty Paying Gas/Electric Bills: No Difficulty Paying for Meds: No Currently Unemployed: No Education: Trade/Vocational Certificate Difficulty w/ Childcare or Family Care: No Living arrangements: with family Occupation/Education: unemployed Gender identity (if verbalized by the patient): Female Sexual Orientation (if Verbalized by the Patient): Straight or Heterosexual Spiritual care concerns: No Meds Home Medications and Allergies Home Medications Medication Instructions Recorded Confirmed Type vits no.126-ferrous fum 1 tablet PO DAILY 02/23/24 09/26/24 History 28 mg iron-folic acid 800 mcg tablet (Classic ) aspirin 81 mg tablet,delayed 81 mg PO DAILY 04/19/24 09/26/24 History release (Gisella Low Dose Aspirin) sertraline 25 mg tablet 25 mg PO DAILY #90 tabs 09/26/24 10/01/24 Rx Allergies Allergy/AdvReac Type Severity Reaction Status Date / Time azithromycin Allergy Hives Verified 09/26/24 10:40 [From Zithromax Z-Sg] Vital Signs Vital Signs - 24 hr 10/01/24 06:58 10/01/24 06:56 10/01/24 07:01 Pulse Rate 85 88 Blood Pressure 135/71 123/71 Oxygen Delivery Room Air Exam Const: General: cooperative, no acute distress and obese Nutritional Appearance: obese Orientation/consciousness: patient oriented x3 Resp: Effort & Inspection: normal respiratory effort Cardio: Rate: regular rate GI: GI Palp: No abdominal tenderness : Other: FHT's: 140's/ mod fatemeh/ + accels/ no decels - cat 1 TOCO: irrgular ctxs Cervix: 4/50/-3 Membranes: AROM, clear 0725 Presentation: cephalic Skin: General skin exam: normal color Neuro: General: patient oriented x3 Extrem: General: normal to inspection Psych: Appearance: grossly normal Affect: normal affect Attitude: cooperative Assessment and Plan Assessment and plan (1) Encounter for elective induction of labor: Code(s): Z34.90 - Encounter for supervision of normal , unspecified, unspecified trimester Status: Acute Plan - Admitted to L&D for IOL; risks and benefits discussed in detail - Pitocin per protocol - Continuous monitoring; currently reassuring - GBS negative - Anesthesia consult PRN pain
[2024-10-01 07:24] LABS: Basophils Percent Auto 0.2 % (0.2-1.2); Eosinophils Absolute Auto 0.1 K/mm3 (0-0.3); Eosinophils Percent Auto 1.3 % (0-4.4); Hematocrit 31.9 % (37.0-47.0); Hemoglobin 10.3 g/dL (12.0-15.0); Immature Granulocyte Absolute 0.03 K/mm3 (0.00-0.031); Immature Granulocyte Percent A 0.4 % (0-0.5); Lymphocytes Absolute Auto 1.68 K/mm3 (0.9-3.2); Lymphocytes Percent Auto 19.8 % (18.3-44.2); Mean Corpuscular HGB Conc 32.3 g/dl (32-36); Mean Corpuscular Hemoglobin 28.2 pg (26-34); Mean Corpuscular Volume 87.4 fl (80-100); Mean Platelet Volume 11.1 fl (7.4-10.4); Monocytes Absolute Auto 0.8 K/mm3 (0.1-0.6); Monocytes Percent Auto 9.9 % (2.6-8.5); Neutrophils Absolute Auto 5.8 K/mm3 (1.3-6.7); Neutrophils Percent Auto 68.4 % (45.5-73.1); Platelet Count Result 224 k/mm3 (150-375); Red Blood Count 3.65 M/mm3 (4.2-5.4); Red Cell Distribution Width 13.7 % (11.5-14.5); White Blood Count 8.5 K/mm3 (4.5-10.0)
[2024-10-01] MEDS: LACTATED RINGERS 1,000 ML 125 ML IV CONT ×2 (07:27→20:34)
[2024-10-01] MEDS: OXYTOCIN 30 UNITS/NS 500 ML 30 UNITS/500 ML BAG IV CONT (07:27)
[2024-10-01 07:58] LABS: Alanine Aminotransferase 13 U/L (6-35); Albumin Level 3.1 g/dL (3.5-5.1); Alkaline Phosphatase 310 U/L (38-126); Anion Gap 3 mmol/L (4-12); Aspartate Amino Transferase 23 U/L (14-36); Bilirubin,Total 0.7 mg/dL (0.2-1.3); Blood Urea Nitrogen 8 mg/dL (7-17); Calcium 8.6 mg/dL (8.4-10.2); Carbon Dioxide 18 mmol/L (22-30); Chloride 111 mmol/L (98-107); Estimated CRCL calculation 156 ml/min; Estimated Glomerular Filt Rate > 60; Glucose 118 mg/dL (65-110); Potassium 3.9 mmol/L (3.4-5.0); Sodium 132 mmol/L (137-145); Uric Acid 3.5 mg/dL (2.5-7.5)
[2024-10-01 08:19] LABS: Rapid Plasma Reagin Non-Reactive (NonReactive)
[2024-10-01 08:26] LABS: HIV 1/2 Ab P24 Ag Result Negative (Negative)
--- NOTE | 2024-10-01 12:13 | PM.OBPNLAB ---
Pain Control Date/time seen: 10/01/24 12:13 Pain control: tolerating well Pelvic Exam Dilation (cm): 5 Effacement (%): 50 station: -3 Amniotic membrane status: Ruptured Contractions Monitor mode: Internal (placed on this exam) Contraction pattern: Irregular Status status: Category l Assessment and Plan Pitocin rate (mU/min): 12 Assessment: induction ongoing Plan: continuous present management
[2024-10-01] MEDS: ONDANSETRON INJ 4 MG/2 ML VIAL IV PUSH (15:31)
--- NOTE | 2024-10-01 17:01 | WPDANESEPPF ---
Anes - Initial Pre Proc Eval Procedure: labor epidural Date/Time: 10/01/24 17:01 Surgeon: Iqra Lopez MD Pre Op Diagnosis: labor pain Pre Op Diagnosis: IOL Patient Data Age: 24 Gender: F Height: 1.57 m Weight: 97.5 kg Last Vital Signs Temp 36.6 C 10/01/24 15:00 Pulse 59 L 10/01/24 17:01 BP 136/59 L 10/01/24 17:01 Pulse Ox 100 10/01/24 16:57 O2 Del Method Room Air 10/01/24 06:58 Allergies Allergy/AdvReac Type Severity Reaction Status Date / Time azithromycin Allergy Hives Verified 09/26/24 10:40 [From Zithromax Z-Sg] Home Medications Medication Instructions Recorded Confirmed Type vits no.126-ferrous fum 1 tablet PO DAILY 02/23/24 09/26/24 History 28 mg iron-folic acid 800 mcg tablet (Classic ) aspirin 81 mg tablet,delayed 81 mg PO DAILY 04/19/24 09/26/24 History release (Gisella Low Dose Aspirin) sertraline 25 mg tablet 25 mg PO DAILY #90 tabs 09/26/24 10/01/24 Rx Laboratory Tests 10/01/24 06:34 WBC 8.5 K/mm3 (4.5-10.0) RBC 3.65 L M/mm3 (4.2-5.4) Hgb 10.3 L g/dL (12.0-15.0) Hct 31.9 L % (37.0-47.0) MCV 87.4 fl (80-100) MCH 28.2 pg (26-34) MCHC 32.3 g/dl (32-36) RDW 13.7 % (11.5-14.5) Plt Count 224 k/mm3 (150-375) MPV 11.1 H fl (7.4-10.4) Immature Gran % (Auto) 0.4 % (0-0.5) Neut % (Auto) 68.4 % (45.5-73.1) Lymph % (Auto) 19.8 % (18.3-44.2) [place] % (Auto) 9.9 H % (2.6-8.5) Eos % (Auto) 1.3 % (0-4.4) Baso % (Auto) 0.2 % (0.2-1.2) Lymph # (Auto) 1.68 K/mm3 (0.9-3.2) [place] # (Auto) 0.8 H K/mm3 (0.1-0.6) Eos # (Auto) 0.1 K/mm3 (0-0.3) Baso # (Auto) 0.0 K/mm3 (0.0-0.1) Abs Immat Gran (auto) 0.03 K/mm3 (0.00-0.031) Absolute Neuts (auto) 5.8 K/mm3 (1.3-6.7) Absolute Nucleated RBC 0.000 K/mm3 (0.0-0.012) Nucleated RBC % 0.0 % (0.0-0.2) Sodium 132 L mmol/L (137-145) Potassium 3.9 mmol/L (3.4-5.0) Chloride 111 H mmol/L (98-107) Carbon Dioxide 18 L mmol/L (22-30) Anion Gap 3 L mmol/L (4-12) BUN 8 mg/dL (7-17) Creatinine 0.50 L mg/dL (0.7-1.0) Estim Creat Clear Calc 156 ml/min Estimated GFR > 60 (59 - ) Glucose 118 H mg/dL (65-110) Uric Acid 3.5 mg/dL (2.5-7.5) Calcium 8.6 mg/dL (8.4-10.2) Total Bilirubin 0.7 mg/dL (0.2-1.3) AST 23 U/L (14-36) ALT 13 U/L (6-35) Alkaline Phosphatase 310 H U/L (38-126) Total Protein 6.0 L g/dL (6.3-8.2) Albumin 3.1 L g/dL (3.5-5.1) RPR Non-reactive (NonReactive) HIV 1&2 Ab/P24 Ag 4thGn Negative (Negative) Blood Type O Negative Antibody Screen Negative Patient hx anesthesia problems: none Family hx anesthesia problems: none Results Review: All pre-operative results and documents have been reviewed as part of the pre-operative evaluation. [facility] Past Medical History Medical History Acute suppur left otitis media w/o spontan rupture tympanic membrane Contraceptive management Decreased movement Encounter for induction of labor IUGR (intrauterine growth restriction) Left foot pain No active medical problems Normal vaginal delivery of first Sexually transmissible disease Suppression of menses Surgical History Surgical History Hx of toe surgery 2011 bilateral great toe pinning Family History Family History Mother Family history non-contributory Other No significant family history Social History Social History Smoking status: Never smoker Second hand tobacco smoke exposure: No Alcohol intake: former Alcohol use details: rarely Substance use: never Substance use type: does not use Last use: LAST 01/30/21 Do You Feel Safe in your Home?: Yes Lack of Transportation: No Lack of Food: Never True Current Housing: I Have Housing Concerned About Future Housing: No Difficulty Paying Gas/Electric Bills: No Difficulty Paying for Meds: No Currently Unemployed: No Education: Trade/Vocational Certificate Difficulty w/ Childcare or Family Care: No Living arrangements: with family Occupation/Education: unemployed Gender identity (if verbalized by the patient): Female Sexual Orientation (if Verbalized by the Patient): Straight or Heterosexual Spiritual care concerns: No Anes - Eval Final PreProcedure Day of Procedure 10/01/24 17:01 Patient weight: obese ASA classification: III Anesthetic plan: proceed Anesthesia type and monitoring: regional epidural and standard monitoring Results Review: All pre-operative results and documents have been reviewed as part of the pre-operative evaluation. Informed Consent: The patient's anesthetic plan and its attendant risks and benefits were discussed with the patient/family/POA. Questions were solicited and answers provided to the satisfaction of the patient/family/POA.
--- NOTE | 2024-10-01 17:05 | PM.OBPNLAB ---
Pain Control Date/time seen: 10/01/24 17:05 Pain control: epidural Pelvic Exam Dilation (cm): 6 Effacement (%): 80 station: -3 Amniotic membrane status: Ruptured Contractions Monitor mode: Internal (placed on this exam) Contraction frequency: 4 Contraction pattern: Regular Status status: Category l Assessment and Plan Pitocin rate (mU/min): 12 Assessment: active labor Plan: continuous present management
--- NOTE | 2024-10-01 21:48 | PM.OBPRVD ---
OB - Vaginal Delivery Note Procedure Delivery date: 10/01/24 Events: Chronic Hypertension, Elective Induction of Labor, Macrosomia and Polyhydramnios Induction method: Per Pitocin Protocol Delivery augmentation: Rupture of Membranes Delivery monitor: External FHT and Internal Uterine Route of delivery: Laceration Description: Perineal - 1st Degree Delivery repair: vicryl Specimen: Yes Quantitative Blood Loss (ml): 200 Anesthesia type: Epidural Disposition: Floor Complications: No immediate complications [place] Baby Date of : 10/01/24 Time of : 21:30 Gestational Age by Date: 39 (.3) Infant gender: Female Weight (pounds): 7 Weight (ounces): 13 presentation: vertex Cord Vessel Description: 3 Vessels, Nuchal Cord, Reduced and Delayed Cord Clamping score one minute: 8 score five minutes: 9 Narrative: Gladis rapidly progressed to complete dilation with strong desire to push. She pushed for approximately 45 minutes with good maternal effort. She delivered the head over intact perineum. Nuchal cord was noted but was loose and easily reduced. She easily delivered the infant's shoulders and body without complication. The infant was immediately placed skin to skin and was stimulated by the pediatric team. Delayed cord clamping was performed. The umbilical cord was then doubly clamped and cut. The still did not have a strong cry and, therefore she was taken over to the warmer. A segment of the cord was collected for cord gases. The remaining cord blood was collected for typing. With Pitocin running and gentle downward traction on the cord, the placenta delivered without complication. Bimanual massage was performed and good uterine tone with minimal bleeding was noted. She was examined and a small first-degree perineal laceration was identified. The laceration was reapproximated with a figure of 8 using 2-0 Vicryl and good hemostasis was noted. Uterus remained firm with minimal bleeding. Sponge, lap, instrument, and needle counts were correct at the end of the procedure. Mom and baby were left bonding birthing suite in stable condition.
[2024-10-01] MEDS: OXYTOCIN 30 UNITS/NS 500 ML 30 UNITS/500 ML BAG 125 UNITS IV CONT (21:53)
[2024-10-01] MEDS: BENZOCAINE 20% AER SPR (*SP) 56 GM CAN 1 SPRAY TOPICAL (23:36)
[2024-10-01] MEDS: WITCH HAZEL 40 PADS 1 PAD TOPICAL (23:36)
--- NOTE | 2024-10-02 | OBPPTRN ---
Patient transferred to post room #286 via wheelchair. Support person present. Oriented to unit, room, information board, rooming in, admission packet and security measures. Patient verbalizes understanding.
[2024-10-02] MEDS: IBUPROFEN 600 MG TABLET PO ×2 (00:51→08:40)
[2024-10-02 01:01] VITALS: BP 121/53; PULSE 76; RESP 20; TEMP 37.1; O2SAT 99
[2024-10-02 03:52] LABS: Hematocrit 33.5 % (37.0-47.0); Hemoglobin 10.4 g/dL (12.0-15.0); Mean Corpuscular Hemoglobin 28.7 pg (26-34); Mean Corpuscular Volume 92.5 fl (80-100); Mean Platelet Volume 11.3 fl (7.4-10.4); Platelet Count Result 176 k/mm3 (150-375); Red Blood Count 3.62 M/mm3 (4.2-5.4); Red Cell Distribution Width 13.6 % (11.5-14.5); White Blood Count 14.8 K/mm3 (4.5-10.0)
[2024-10-02 03:57] VITALS: BP 119/65; PULSE 74; TEMP 36.4; O2SAT 99
--- NOTE | 2024-10-02 07:11 | P.PNOB_ITS ---
OB - PN: Subj Subjective Date/time seen: 10/02/24 07:11 Narrative: PPD#1 Gladis reports doing well today. 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 Her pain is controlled. She is tolerating regular diet, voiding, passing gas, and ambulating without issues. She is breast and bottle feeding. OB - PN: Obj Data Labs 10/02/24 03:38 10/01/24 06:34 Labs: Laboratory Results - last 24 hr 10/01/24 10/02/24 06:34 03:38 WBC 8.5 14.8 H RBC 3.65 L 3.62 L Hgb 10.3 L 10.4 L Hct 31.9 L 33.5 L MCV 87.4 92.5 D MCH 28.2 28.7 MCHC 32.3 31.0 L RDW 13.7 13.6 Plt Count 224 176 MPV 11.1 H 11.3 H Immature Gran % (Auto) 0.4 Neut % (Auto) 68.4 Lymph % (Auto) 19.8 [place] % (Auto) 9.9 H Eos % (Auto) 1.3 Baso % (Auto) 0.2 Lymph # (Auto) 1.68 [place] # (Auto) 0.8 H Eos # (Auto) 0.1 Baso # (Auto) 0.0 Abs Immat Gran (auto) 0.03 Absolute Neuts (auto) 5.8 Absolute Nucleated RBC 0.000 Nucleated RBC % 0.0 Sodium 132 L Potassium 3.9 Chloride 111 H Carbon Dioxide 18 L Anion Gap 3 L BUN 8 Creatinine 0.50 L Estim Creat Clear Calc 156 Estimated GFR > 60 Glucose 118 H Uric Acid 3.5 Calcium 8.6 Total Bilirubin 0.7 AST 23 ALT 13 Alkaline Phosphatase 310 H Total Protein 6.0 L Albumin 3.1 L RPR Non-reactive HIV 1&2 Ab/P24 Ag 4thGn Negative Blood Type O Negative O Negative Antibody Screen Negative TNP Screen Negative Baby's Blood Type A pos Baby's MARY CARMEN Positive Doses of RhIg Required 1 OB - PN A/P Assessment and Plan (1) Normal vaginal delivery of second : Code(s): O80 - Encounter for full-term uncomplicated delivery Status: Acute Plan day: 1 Plan: routine care Comments: - PO pain meds - Regular diet - Ambulation and hydration encouraged - Continue putting baby to breast q2-3h - Pelvic rest; take meds as prescribed - ER return precautions: fever, n/v/abd pain, bleeding, HTN Time Spent With Patient Time: Total time spent is greater than 50% in coordination of care (as documented) at patient's floor/unit and/or counseling patient: Review of Systems Constitutional: Constitutional: Denies chills, Denies fever(s) and Denies headache(s) Eyes: Eyes: Denies change in vision ENT: Denies dizziness and Denies headache(s) Cardiovascular: Cardiovascular: Denies chest pain, Denies palpitations and Denies dyspnea Respiratory: Respiratory: Denies cough and Denies dyspnea Gastrointestinal: Gastrointestinal: Denies nausea and Denies vomiting Neurologic: Denies dizziness and Denies headache(s) Endocrine: Endocrine: Denies palpitations Exam Const: General: cooperative, comfortable and no acute distress Orientation/consciousness: patient oriented x3 Resp: Effort & Inspection: normal respiratory effort Auscultation: clear to auscultation bilaterally Cardio: Rate: regular rate GI: Inspection: non-distended GI Palp: No abdominal tenderness and Yes Soft to palpation Auscultation: normal bowel sounds : Other: fundus firm Skin: General skin exam: normal color Neuro: General: patient oriented x3 Extrem: General: normal to inspection Psych: Appearance: grossly normal Affect: normal affect Attitude: cooperative
--- NOTE | 2024-10-02 07:40 | PC.NURSE ---
Called to room by parents. Introductions were made, then consulted with patient to assess needs related to . Communication board updated with contact information. Mother led the conversation with her?plans to feed?her and the?experience so far. A nipple shield is being used and pumping has been initiated. Education reiterated regarding cleaning the breast pump and nipple shield after each use. Instructions provided on proper placement of nipple shield and how to latch once nipple shield is in place. Infant latched optimally to the right breast in football position. Education given to the mother of how to visualize the suckling, swallows and how to listen for drinking at the breast. was able to maintain latch without pain to mother. Parents voiced understanding of information, demonstrated learning and will call if there is a request for assistance. Reported to the Primary RN.
[2024-10-02 07:50] VITALS: BP 113/59; PULSE 64; RESP 16; TEMP 36.6; O2SAT 97
[2024-10-02] MEDS: DOCUSATE SODIUM 100 MG CAPSULE PO (08:35)
[2024-10-02] MEDS: SERTRALINE HCL 25 MG TABLET PO (08:35)
[2024-10-02] MEDS: MULTIVIT/MIN/PREN/FOL AC/IRON TABLET 1 TAB PO (08:35)
--- NOTE | 2024-10-02 11:37 | PC.NURSE ---
Called to bedside for assistance with latching infant. Upon entering room, was sleeping and swaddled. Mother states that she has tried waking infant but is unable, this RN undressed infant and was able to arouse enough to latch to the left breast with nipple shield in place for 4 minutes. Infant fell back into deep sleep. An additional attempt was made to wake for feeding and infant did nurse for an additional 3 minutes. Mother was able to pump 2cc of colostrum with her breastpump - colostrum was given to the . Formula is at bedside if mother chooses to supplement after this attempt. Primary RN updated.
[2024-10-02 11:59] VITALS: BP 109/59; PULSE 72; RESP 16; TEMP 36.9; O2SAT 98
[2024-10-02] MEDS: RHO(D) IMMUNE GLOBULIN 300 MCG/2 ML SYRINGE IM (14:50)
--- NOTE | 2024-10-02 15:26 | WPDANLDPN2 ---
Anes-Prog Note L&D Date/Time: 10/02/24 15:26 Comfortable throughout: labor and delivery Neuraxial method: epidural Epidural/Spinal procedure site: clean & non-tender Neuro status: Neuro function grossly intact. Cardiovascular status: normal Respiratory status: normal Airway patency: baseline Mental status: baseline Post-Op hydration status: normal Vital Signs: Last Vital Signs Temp 36.9 C 10/02/24 11:59 Pulse 72 10/02/24 11:59 Resp 16 10/02/24 11:59 BP 109/59 L 10/02/24 11:59 Pulse Ox 98 10/02/24 11:59 O2 Del Method Room Air 10/02/24 12:20 Pain score (VAS): 2 (c/o slight back pain when lying down. Improvement when OOB) I/O: Intake & Output 10/01/24 10/02/24 10/02/24 23:59 07:59 15:59 Output Total 200 Balance -200 Post-procedural complaints: none Patient feedback: Patient satisfied with anesthetic care.
[2024-10-02 16:45] VITALS: BP 116/77; PULSE 73; RESP 16; TEMP 36.6; O2SAT 100
--- NOTE | 2024-10-02 17:05 | PC.NURSE ---
1702. Mom confirmed her need for a [facility] referral for support upon discharge. Patient info sheet filled out and faxed to the WIC office. Reported to the primary RN.
--- NOTE | 2024-10-02 18:13 | PC.NURSE ---
1730. Breast pump provided due to moms home pump flange size is too large and needs to purchase the appropriate size before she being using regularly. Mom has a lansinoh breast pump she acquired thru insurance and her flange size is too big. We reviewed how to tell if the flange is the appropriate size with the flange fit handout. Mom was incouraged to try the size 21 flange but if that feels to tight or feels her nipples rubbing on the inside of the chamber to move up to size 24. Instructions given on cleaning, care, usage, that there should be no pain, pumping schedule for milk production, collection, and storage of human milk. Patient was assessed for correct placement, flange size, to pump for comfort and nipple stretching/stimulation for adequate milk production every 3 hours (8 times in 24 hours) 1-2 times at night. Parents are encouraged to record the pumping schedule on the feeding sheet.?Mother voiced understanding of the education shared along with mom/baby guide and the pump measurement, flange fit handout for additional resource information. Reported to the Primary RN.
[2024-10-02 20:00] VITALS: BP 121/71; PULSE 67; RESP 18; TEMP 36.6; O2SAT 100
[2024-10-03 03:00] VITALS: BP 117/65; PULSE 70; RESP 14; TEMP 36.3; O2SAT 98
--- NOTE | 2024-10-03 07:16 | P.DS_ITS ---
DS: Admitting Diagnosis Discharge Date 10/03/24 Admitting Diagnosis Induction of labor LGA w/ h/o polyhydramnios Possible chronic hypertension DS: Discharge Diagnosis Discharge Diagnosis (1) Normal vaginal delivery of second : Code(s): O80 - Encounter for full-term uncomplicated delivery Status: Acute OB - DS: Summary OB Procedures : NST, PIH Mgmt and Ultrasound OB Procedures Intrapartum: Spontaneous Vag Delivery OB Procedures: : None Peripartum Data Infant Delivery Method: Natural Vaginal Laceration Description: Perineal - 1st Degree Episiotomy description: None complications: none 1: Gender: Female Disposition of : home Status at Discharge Functional status at discharge: independent ambulation Overall status at discharge: patient is back to baseline Time Spent with Patient Time attestation: Total time spent providing and/or coordinating discharge services: Exam Const: General: cooperative, comfortable and no acute distress Nutritional Appearance: obese Orientation/consciousness: patient oriented x3 Resp: Effort & Inspection: normal respiratory effort Auscultation: clear to auscultation bilaterally Cardio: Rate: regular rate GI: Inspection: non-distended GI Palp: No abdominal tenderness and Yes Soft to palpation Auscultation: normal bowel sounds : Other: fundus firm Skin: General skin exam: normal color Neuro: General: patient oriented x3 Extrem: General: normal to inspection Psych: Appearance: grossly normal Affect: normal affect Attitude: co operative DS: Data Data Completed and Pending Pending studies at discharge: Pending at discharge 10/01/24 22:00 Surgical [PTH] Routine Labs on day of discharge: Labs from last 24 hours 10/02/24 03:38 Blood Type O Negative Antibody Screen TNP Screen Negative Baby's Blood Type A pos Baby's MARY CARMEN Positive Doses of RhIg Required 1 Discharge Plan Discharge Attending physician on discharge: Iqra Lopez Discharging Clinician: Iqra Lopez Anticipated Discharge Date/Time: 10/03/24 10:00 Patient Disposition: Home, Self-Care Activity: may shower and pelvic rest Diet: regular Patient Instructions: Vaginal Delivery (DC) Stand Alone Forms: General Discharge Information Follow-up/Referrals: Iqra Lopez MD [Physician] - 4 Weeks Discharge Medications: New acetaminophen 325 mg Tablet 650 mg PO Q6H PRN (Reason: Mild Pain (1-3) Or Headache) Qty: 60 0RF docusate sodium 100 mg Capsule 100 mg PO BID PRN (Reason: Constipation) Qty: 60 0RF ibuprofen 600 mg Tablet 600 mg PO Q6H PRN (Reason: Cramping) Qty: 40 0RF Continued sertraline 25 mg tablet 25 mg PO DAILY Qty: 90 1RF Classic 28 mg iron- 800 mcg tablet 1 tablet PO DAILY Discontinued aspirin [Gisella Low Dose Aspirin] 81 mg tablet,delayed release (DR/EC) 81 mg PO DAILY Date of admission: 10/01/24 06:21 Primary Care Provider: HildaLaure Admitting Provider: Iqra Lopez Attending physician on admission: Iqra Lopez Condition: Stable
[2024-10-03 07:55] VITALS: BP 115/77; PULSE 64; RESP 16; TEMP 36.4; O2SAT 100
[2024-10-03] MEDS: MULTIVIT/MIN/PREN/FOL AC/IRON TABLET 1 TAB PO (08:29)
[2024-10-03] MEDS: SERTRALINE HCL 25 MG TABLET PO (08:29)
[2024-10-03] MEDS: IBUPROFEN 600 MG TABLET PO (08:29)
[2024-10-03] MEDS: TETANUS,DIPHTHERIA,AC PERTUSSIS ADULT (0.5 ML) BOOSTRIX IM (08:31)
[2024-10-03] MEDS: INFLUENZA TRIVALENT VACCINE 45 MCG/0.5 ML SYRINGE IM (08:33)
--- NOTE | 2024-10-03 08:45 | PC.NURSE ---
Met with patient to assess and discuss needs related to feeding. Mother states it is her intention to [combo feed & pump]. Encouraged mother to breastfeed or pump 8-12 times in 24 hours (approximately every 2-3 hours), watching for early feeding cues. She is using the nipple shield off and on and struggles to latch baby to the left breast, even with the shield. We discussed why their was difficulty, if baby is too sleepy or if she won't open her mouth or maintain a latch. Mother wasn't really able to verbalize what the specific difficulties are. Mom has just pumped and was giving colostrum to baby. Encouraged her to call out if it's her intention to put baby to breast so that we can provide assessment and assistance. If is sleepy, unwrap and place baby skin to skin. Discussed signs that is effectively feeding, i.e. sufficient voids and stools, jaundice within normal limits, <10% weight loss from . Mother educated on milk production, supply and demand, and expectations for in the immediate period. Encouraged feeding on demand and feeding durations of 15 minutes or greater. Mother instructed to call for assistance if infant will not feed every 3 hours, if there is discomfort with , or if mother has any other questions or concerns. resources provided including the Mom and Baby Guide and name/number on communication board. Mother verbalized understanding. Updated patient?s primary RN with education provided.??
--- NOTE | 2024-10-03 10:14 | PC.NURSE ---
On 10/03/24, the student, Lu Peters, provided care and completed [facility] documentation on this patient. I have reviewed the student's documentation and agree with the findings.
--- NOTE | 2024-10-03 11:55 | PC.NURSE ---
Patient instructed on viewing the discharge video Mother & Baby Care, The First Two Weeks . Patient was given the opportunity and encouraged to ask questions. Patient verbalized understanding of information shared and has been given the mother/baby guide for home reference.
--- NOTE | 2024-10-03 12:15 | PC.NURSE ---
1215- Mother is feeding appropriately for growth of and understands stimulating to eat if needed, at some feeds and bottle feeding with pumped milk and formula. Infant has had appropriate feedings in the last 24 hours meets the outcomes for weight, output, blood sugar and jaundice at this time. Reinforced understanding of milk production, transition of milk, signs of adequate intake, transition of stool, prevention/relief of engorgement, plugged ducts, mastitis, responsive watching for feeding cues, the different methods of stimulating to breastfeed 1-3 hours after the start of the last feeding, community resources, and when to call a provider using the resource of the feeding sheet along with the mom and baby guide. Mother voiced understanding of the information shared, is confident to continue effectively her infant at home, when to call for assistance, denies any additional assistance or education at this time. Reported to the Primary RN.
[2024-10-04 08:37] VITALS: BP 147/68; PULSE 76; RESP 16; TEMP 36.8; O2SAT 99
== END 2024-10-03 12:48 | disposition home or self-care (01) | DRG 560 ==
LOC: ANHLDR 06:27 → ANHOB2 10-02 00:53
PROVIDERS: Admitting Provider Obstetrics & Gynecology; PCP Physician Assistant; Visit Provider Obstetrics & Gynecology
DX: O10.92 Unspecified pre-existing hypertension complicating childbirth (principal); Z37.0 Single live birth; Z3A.39 39 weeks gestation of pregnancy; O70.0 First degree perineal laceration during delivery; O69.81X0 Labor and delivery complicated by cord around neck, without compression, not applicable or unspecified; O40.3XX0 Polyhydramnios, third trimester, not applicable or unspecified; Z23 Encounter for immunization
CPT/HCPCS: 36415; 80053; 84550; 85025; 85027; 85461; 86592; 86703; 86850; 86900; 86901; 88307; 90384; 90471; 90656; 90715; A9270; G0008; G0432; J2405; J2590; J2790; J2795; J7120

== ENCOUNTER 2024-11-18 13:36 | Emergency (ER) | payer OTHER, SELFPAY ==
[2024-11-18 13:40] VITALS: BP 141/79; PULSE 58; RESP 20; TEMP 37; O2SAT 97
--- NOTE | 2024-11-18 14:55 | ED.GENADULT ---
HPI - General Adult General Chief complaint: Skin/Abscess/Foreign Body Stated complaint: Foreign body L ear Time Seen by Provider: 11/18/24 14:44 History of Present Illness HPI narrative: 24-year-old female presenting to the emergency department for evaluation for foreign body in her left ear. Patient does wear hearing aid and pulled out the hearing aid but unfortunately the distal rubber protection stayed within the ear canal. This happened just prior to arrival. Related Data Home Medications ?Medication ?Instructions ?Recorded ?Confirmed ?Last Taken ?Type vits no.126-ferrous fum 1 tablet PO DAILY 02/23/24 10/30/24 1 Day Ago History 28 mg iron-folic acid 800 mcg ~09/20/24 tablet (Classic ) Allergies Allergy/AdvReac Type Severity Reaction Status Date / Time azithromycin (From Zithromax Allergy Hives Verified 10/30/24 15:41 Z-Sg) Review of Systems Review of Systems: All systems reviewed & are unremarkable except as noted in HPI and below PMFSH Past Medical History Medical History Suppression of menses Left foot pain No active medical problems Acute suppur left otitis media w/o spontan rupture tympanic membrane Contraceptive management Sexually transmissible disease Normal vaginal delivery of first Encounter for induction of labor IUGR (intrauterine growth restriction) Decreased movement Surgical History Surgical History Hx of toe surgery 2011 bilateral great toe pinning Family History Family History Mother Family history non-contributory Other No significant family history Social History Social History Smoking status: Never smoker Second hand tobacco smoke exposure: No Alcohol intake: former Alcohol use details: rarely Substance use: never Substance use type: does not use Last use: LAST 01/30/21 Do You Feel Safe in your Home?: Yes Lack of Transportation: No Lack of Food: Never True Current Housing: I Have Housing Concerned About Future Housing: No Difficulty Paying Gas/Electric Bills: No Difficulty Paying for Meds: No Currently Unemployed: YES Education: Trade/Vocational Certificate Difficulty w/ Childcare or Family Care: No Living arrangements: with family Occupation/Education: unemployed Gender identity (if verbalized by the patient): Female Sexual Orientation (if Verbalized by the Patient): Straight or Heterosexual Spiritual care concerns: No Exam Narrative: APPEARANCE: Well appearing, no pain, no distress, well-nourished. HEAD: normocephalic, atraumatic. EYES: PERRLA/EOMI, conjunctivae clear. NOSE: Normal no drainage EARS: Foreign body within the left ear. THROAT: Pharynx clear, no exudate. NECK: Supple. No adenopathy, no masses. RESPIRATORY: Airway patent, respirations nonlabored. Clear to auscultation bilaterally, no rales, rhonchi, wheezing. CARDIOVASCULAR: Regular rate and rhythm without murmurs rubs or gallops. ABDOMINAL: Soft, nontender, nondistended, normal bowel sounds MUSCULOSKELETAL: Moves all extremities. Strength/ROM intact, No edema, No calf tenderness. NEURO: Alert. Cranial nerves II through XII intact. SKIN: Warm, dry. Normal Color Course Vital Signs Vital signs: Vital Signs Temperature 98.6 F 11/18/24 13:40 Pulse Rate 58 L 11/18/24 13:40 Respiratory Rate 20 11/18/24 13:40 Blood Pressure 141/79 H 11/18/24 13:40 Pulse Oximetry 97 11/18/24 13:40 Oxygen Delivery Room Air 11/18/24 13:40 Temperature 97.9 F 11/18/24 15:18 Pulse Rate 78 11/18/24 15:18 Respiratory Rate 16 11/18/24 15:18 Blood Pressure 126/80 11/18/24 15:18 Pulse Oximetry 100 11/18/24 15:18 Oxygen Delivery Room Air 11/18/24 13:40 Procedures Foreign Body Removal Foreign Body #1: Foreign Body Removal Date: 11/18/24 Foreign Body Removal Time: 14:58 Time Out Performed: yes Site: left Description of foreign body: other Sedation/Analgesia: none Technique: manual removal and removal with forceps Confirmed by:: direct visualization Complications: none Post-procedure exam: awake, alert Medical Decision Making MDM Narrative Medical decision making narrative: 24-year-old female presenting to the emergency department for evaluation for a left ear foreign body. Foreign body was removed using alligator forceps. Visualization of the TM post foreign body removal showed no damage to the TM and patient reported feeling significantly improved. Patient was comfortable plan for discharge home. Differential Diagnosis Differential Diagnosis: Foreign body, tympanic membrane Vital Signs Vital Signs: Vital Signs Temperature 98.6 F 11/18/24 13:40 Pulse Rate 58 L 11/18/24 13:40 Respiratory Rate 20 11/18/24 13:40 Blood Pressure 141/79 H 11/18/24 13:40 Pulse Oximetry 97 11/18/24 13:40 Oxygen Delivery Room Air 11/18/24 13:40 Temperature 97.9 F 11/18/24 15:18 Pulse Rate 78 11/18/24 15:18 Respiratory Rate 16 11/18/24 15:18 Blood Pressure 126/80 11/18/24 15:18 Pulse Oximetry 100 11/18/24 15:18 Oxygen Delivery Room Air 11/18/24 13:40 Discharge Plan Discharge Clinical Impression: Foreign body in ear Patient Disposition: Home, Self-Care Condition: Stable Instructions: Antibiotic Form Additional Instructions: I did not recommend using that current hearing aid until it is repaired. Patient Language: Indonesian Prescriptions: No Action sertraline 25 mg tablet 25 mg PO DAILY Qty: 90 1RF Classic 28 mg iron- 800 mcg tablet 1 tablet PO DAILY acetaminophen 325 mg Tablet 650 mg PO Q6H PRN (Reason: Mild Pain (1-3) Or Headache) Qty: 60 0RF docusate sodium 100 mg Capsule 100 mg PO BID PRN (Reason: Constipation) Qty: 60 0RF ibuprofen 600 mg Tablet 600 mg PO Q6H PRN (Reason: Cramping) Qty: 40 0RF Follow-up/Referrals: Mary,SUKH Kelsey [Primary Care Provider] -
[2024-11-18 15:18] VITALS: BP 126/80; PULSE 78; RESP 16; TEMP 36.6; O2SAT 100
== END 2024-11-18 15:21 | disposition home or self-care (01) ==
PROVIDERS: Emergency Provider Emergency Medicine; PCP Physician Assistant
DX: T16.2XXA Foreign body in left ear, initial encounter (principal); W44.G1XA Audio device entering into or through a natural orifice, initial encounter
CPT/HCPCS: 69200; 99282

== ENCOUNTER 2025-08-29 09:14 | Outpatient (CLI) | payer OTHER, SELFPAY ==
--- NOTE | ~2025-08-29 | US_ITS ---
LIMITED ABDOMINAL ULTRASOUND INDICATION: Abdominal wall hernia COMPARISON: None. FINDINGS: There is a ventral abdominal wall hernia. The mouth of the hernia has a maximum dimension of 12 mm. There is movement in into and out of the hernia sac with Valsalva. It is uncertain if this sac contains, but it resembles fat. The maximum measurement of the hernia contents is approximately 4.6 cm. IMPRESSION: Anterior abdominal wall hernia as described. Reviewed, dictated and finalized at location A.
--- OUTSIDE RECORDS SUMMARY | 2025-08-29 09:49 | XMS_ITS | Clinical Summary ---
Author Organization [facility] Address [address] [place] [address] Care Team Providers Care Business Systems Administrator Name Role Phone Elmer Prettyrasheeda Stark APRN-INTEGRATION LEAD Primary Care Provider + Source Comments [facility],non-owned Affiliates and Associated Physician Practices is amultiple site organization consisting of ambulatory clinics and hospital sitesin [place], [place], [place] and [place]. This disclosure is being madepursuant to the Care Everywhere program and may not contain all information available regarding this patient. Last updated 18.[facility] Allergies Active Allergy Reactions Criticality Noted Date Comments Azithromycin Rash Medium 06/06/2024 Medications * This document contains information received from the source organization and may not represent a complete record from that organization. * Be aware that medications may not be up to date on this document. Alwaysverify current medications with the patient. methylphenidate CR (CONCERTA) 54 MG tablet Take 1 (one) tablet by mouth every morning Active citalopram (CELEXA) 10 MG tablet Take 1 (one) tablet by mouth once daily Active lithium CR (ESKALITH CR) 450 MG tablet Take 1 (one) tablet by mouth every 12 hours Active methylphenidate (RITALIN) 10 MG tablet Take 1 (one) tablet by mouth Every morning and lunchtime Active norgestrel-ethi nyl estradiol (LO/OVRAL; LOW-OGESTREL; CRYSELLE) 0.3-30 MG-MCG tablet Take 1 (one) tablet by mouth once daily Active guanFACINE (TENEX) 1 MG tablet Take 1 (one) tablet by mouth at bedtime Active Vit-DSS-Fe Fum-FA ( vitamin with iron) tabletIndicatio ns: Take 1 (one) tablet by mouth once daily Reasons: Active aspirin (Aspirin) 81 MG chew tablet Take 2 (two) tablets by mouth once daily Active Active Problems Problem Noted Date Diagnosed Date Excessive growth affec ting management of in third trimester 08/01/2024 Benign essential hypertension, antepartum 2023 Encounter for ultrasound to assess growth 07/04/2024 Second 07/04/2024 Resolved Problems Problem Noted Date Diagnosed Date Resolved Date Low TSH level 02/14/2017 07/04/2024 Overview (02/14/2017): date TSH (uIU/L) free T4 (ng/dL) - Apr 05, 2016 3.28 (0.5-4.30) 1.0 (0.9-1.4) - May 12, 2016 1.91 (0.5-4.30) 0.8 (0.9-1.4) - Jun 07, 2016 - 0.91 (0.93-1.60) - direct - Aug 09, 2016 0.13 (0.5-4.30) 0.9 (0.8-1.4) - Aug 18, 2016 0.117 uIU/mL (0.45-4.5) 1.06 (0.93-1.60) - direct - Aug 27, 2016 0.198 uIU/mL (0.45-4.50) 0.99 (0.93-1.60) - direct - Assessment & Plan (02/14/2017 3:29 PM CDT): Low serum TSH, etiology unclear 1. Obtain serum TSH, total T4, total T3, thyroid autoantibodies, and thyroid stimulating immunoglobulin 2. Expectant observation. 3. Return appointment in four months. Family History Medical History Relation Name Comments Hypertension Father Thyroid Disease Father Aneurysm Mother at age 42 yr from ruptured brain aneurysm Cancer - Cervical Paternal Grandmother Relation Name Status Comments Father Alive Mother Paternal Grandfather Paternal Grandmother Social History Tobacco Use Types Packs/Day Years Used Date Smoking Tobacco: Never Smokeless Tobacco: Never Tobacco Cessation:Counseling Given: Not Answered Alcohol Use Standard Drinks/Week Comments Not Currently 0 (1 standard drink = 0.6 oz pur e alcohol) Comments No Sex and Gender Information Value Date Recorded Sex Assigned at Not on file Legal Sex Female 5:39 AM FORECAST ANALYST Gender Identity Not on file Sexual Orientation Not on file Last Filed Vital Signs Vital Sign Reading Time Taken Comments Blood Pressure 127/58 09/26/2024 7:52 AM FORECAST ANALYST Pulse 99 09/26/2024 7:52 AM FORECAST ANALYST Temperature - - Respiratory Rate 18 08/01/2024 8:13 AM CDT Oxygen Saturation - - Inhaled Oxygen Concentration - - Weight 98.4 kg (217 lb) 09/26/2024 7:52 AM FORECAST ANALYST Height 160 cm (5' 3) 08/01/2024 8:13 AM CDT Body Mass Index 38.44 08/01/2024 8:13 AM CDT Plan of Treatment Health Maintenance Due Date Last Done Comments HIV SCREENING 2014 HPV VACCINE (1 - 3-dose series) 2014 HEPATITIS C SCREENING 01/30/2017 DTAP/TDAP/TD VACCINES (1 - Tdap) 2018 HEPATITIS B VACCINE (1 of 3 - 19+ 3-dose series) 2018 PAP SMEAR 02/05/2020 DEPRESSION SCREENING 10/31/2024 COVID-19 VACCINE (1 - 2023-2 5 season) 2025 INFLUENZA VACCINE (#1) 2025 ZOSTER VACCINE (1 of 2) 2049 HIB VACCINE Aged Out No longer eligi ble based on patient's age to complete this topic MENINGOCOCCAL (Group B) VACC INE SHARED DECISION-MAKING Aged Out No longer eligibl e based on patient's age to complete this topic MENINGOCOCCAL GROUPS A/C/Y/W VACCINE Aged Out No longer eligible b ased on patient's age to complete this topic PNEUMOCOCCAL VACCINE Aged Out No long er eligible based on patient's age to complete this topic Insurance [facility] Care Teams Business Systems Administrator Relationship Specialty Start Date End Date Pretty Payne, RECREATION INSTRUCTOR-INTEGRATION LEAD [address] [place] [id number] PCP - General Nurse Practitioner 03/02/13
== END 2025-08-29 09:15 | disposition home or self-care (01) ==
PROVIDERS: PCP Physician Assistant; Visit Provider Physician Assistant
DX: K43.9 Ventral hernia without obstruction or gangrene (principal)
CPT/HCPCS: 76705

== ENCOUNTER 2025-10-20 08:12 | Emergency (ER) | payer OTHER, SELFPAY ==
[2025-10-20 08:24] VITALS: BP 121/75; PULSE 95; RESP 18; TEMP 36.4; O2SAT 100
--- NOTE | 2025-10-20 11:46 | ED_ITS ---
HPI - Nausea/Vomiting/Diarrhea General Chief complaint: Nausea/Vomiting/Diarrhea Stated complaint: I have been puking all night Time Seen by Provider: 10/20/25 11:34 Source: patient Mode of arrival: ambulatory Limitations: no limitations History of Present Illness HPI Narrative: This is a 25-year-old female with no significant past medical history who presents to the ED for nausea and vomiting. Patient states that since 3:00 p.m. yesterday, she had the symptoms. She states that this morning, it became pain or yellow-green color prompting ED. She reports some abdominal cramping and a lot of diarrhea this morning. No known sick contacts. Denies fevers, chills chest pain, shortness of breath. Related Data Home Medications ?Medication ?Instructions ?Recorded ?Confirmed ?Last Taken ?Type levonorgestrel (Mirena) 1 device intrauterine ONCE 1 11/16/24 09/16/25 Unknown History Allergies Allergy/AdvReac Type Severity Reaction Status Date / Time azithromycin (From Zithromax Allergy Hives Verified 10/20/25 08:23 Z-Sg) Review of Systems Review of Systems: All systems reviewed & are unremarkable except as noted in HPI and below PMFSH Past Medical History Medical History Hernia Suppression of menses Left foot pain No active medical problems Acute suppur left otitis media w/o spontan rupture tympanic membrane Contraceptive management Sexually transmissible disease Normal vaginal delivery of first Encounter for induction of labor IUGR (intrauterine growth restriction) Decreased movement Surgical History Surgical History History of gynecological procedure (11/20/24) mirena iud insertion Hx of toe surgery 2011 bilateral great toe pinning Family History Family History Mother Family history non-contributory Other No significant family history Social History Social History Smoking status: Never smoker Tobacco type: e-cigarettes/vaping Second hand tobacco smoke exposure: No Alcohol intake: current Alcohol use details: rarely 1-2 a year Substance use: never Substance use type: does not use Last use: LAST 01/30/21 Lack of Transportation: No Lack of Food: Never True Current Housing: I Have Housing Concerned About Future Housing: No Difficulty Paying Gas/Electric Bills: No Difficulty Paying for Meds: No Currently Unemployed: YES Education: Trade/Vocational Certificate Difficulty w/ Childcare or Family Care: No Living arrangements: with family Additional living arrangements comments: engaged Occupation/Education: occupation 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 CARDIOVASCULAR: Regular rate and rhythm without murmurs rubs or gallops. ABDOMINAL: Soft, nontender, nondistended, no rebound or guarding MUSCULOSKELETAl: Moves all extremities. No clubbing, cyanosis or edema. NEURO: Awake and alert. Following commands, speech normal, no focal deficits SKIN:: Warm, dry. No rashes lesions or abrasions PSYCHIATRIC: Normal affect/mood, Course Vital Signs Vital signs: Vital Signs Temperature 97.6 F 10/20/25 08:24 Pulse Rate 95 10/20/25 08:24 Respiratory Rate 18 10/20/25 08:24 Blood Pressure 121/75 10/20/25 08:24 Pulse Oximetry 100 10/20/25 08:24 Oxygen Delivery Room Air 10/20/25 08:24 Temperature 97.6 F 10/20/25 08:24 Pulse Rate 95 10/20/25 08:24 Respiratory Rate 18 10/20/25 08:24 Blood Pressure 121/75 10/20/25 08:24 Pulse Oximetry 100 10/20/25 08:24 Oxygen Delivery Room Air 10/20/25 08:24 [facility] MDM Narrative Medical decision making narrative: 25-year-old female Presenting for nausea, vomiting, diarrhea. On initial evaluation patient was in no acute distress afebrile, hemodynamic stable. Differentials include but are not limited to: Gastroenteritis, enteritis, colitis, viral syndrome, electrolyte abnormality Notable exam findings: Abdomen soft nontender, mucous membranes moist I personally reviewed the patient's lab result. Notable lab findings: Negative for COVID/flu/RSV Patient did have improvement of her nausea with the Zofran. She likely has a viral gastroenteritis causing her symptoms. She will be given a prescription for Zofran. She was educated on adequate hydration. She was advised follow-up with her PCP in the next week for re-evaluation. Patient was agreeable to this plan. Given strict return precautions. Differential Diagnosis Differential Diagnosis: Gastroenteritis, enteritis, colitis, viral syndrome, electrolyte abnormality Lab Data Labs: Lab Results 10/20/25 10/20/25 Range/Units 11:51 11:59 POC Urine HCG, Qual Negative (Negative) Influenza A (RT-PCR) Negative (Negative) Influenza B (RT-PCR) Negative (Negative) RSV (RT-PCR) Negative (Negative) SARS-CoV-2 RNA (RT-PCR) Negative (Negative) Discharge Plan Discharge Clinical Impression: Gastroenteritis Patient Disposition: Home Condition: Stable Instructions: Antibiotic Form, Gastroenteritis (ED) Additional Instructions: Take Zofran as prescribed. Continue to keep up with fluids. You may take fiber if you are concerned about her diarrhea. Follow-up with your PCP in the next week for re-evaluation. Return to the ED for any new or worsening symptoms. Patient Language: Luxembourgish Prescriptions: New ondansetron 4 mg tablet,disintegrating 4 mg PO Q8H PRN (Reason: nausea and vomiting) Qty: 12 0RF No Action Mirena 21 mcg/24hr (up to 8 yrs) 52 mg intrauterine device 1 device intrauterine ONCE Rx Instructions: as a single dose sertraline 50 mg tablet 50 mg PO DAILY Qty: 90 0RF Follow-up/Referrals: Mary,SUKH Kelsey [Non-Staff, Unknown] Stand Alone Forms: Work/School Release IP
[2025-10-20] MEDS: ONDANSETRON HCL ODT 4 MG TABLET PO (11:55)
[2025-10-20 12:03] LABS: BEDSIDEPREGUCG Negative (Negative)
[2025-10-20 12:31] LABS: Influenza A QL RT-PCR Negative (Negative); Influenza B QL RT-PCR Negative (Negative); RSV RNA, RT-PCR Negative (Negative); SARS-CoV-2 RNA PCR Negative (Negative)
== END 2025-10-20 12:58 | disposition home or self-care (01) ==
PROVIDERS: Emergency Provider Student in an Organized Health Care Education/Training Program
DX: K52.9 Noninfective gastroenteritis and colitis, unspecified (principal); Z20.822 Contact with and (suspected) exposure to COVID-19
CPT/HCPCS: 81025; 87637; 99283; A9270